=== PATIENT | male | born 1940 | race Caucasian/White ===

== ENCOUNTER 2018-05-25 11:48 | Inpatient (IN) ==
--- NOTE | 2018-05-25 16:49 | ED ---
HPI General Chief complaint: Skin/Abscess/Foreign Body Stated complaint: Face Pain Left Side Complaint Time Seen by Provider: 05/25/18 16:03 Source: patient Mode of arrival: ambulatory Limitations: other (partially blind) History of Present Illness HPI narrative: 77-year-old male who is legally blind with a history of right kidney cancer presents to the emergency department for evaluation of 3 weeks of left sided facial swelling. Patient states that he has been seen twice, and taking Keflex and clindamycin without improvement. He says that over the last couple days it has become worse. He admits to going to [facility] 2 days ago where they address his nausea and at that time he had abdominal pain. They did not address his facial swelling according to patient. Patient says he is concerned because he has had decreased vision in his left eye as a result of the swelling in his face. Patient says he follows ophthalmology closely. He has been diagnosed with glaucoma and states that his left eye pressure has been "okay". He says over the last couple days his vision has been worse however, he denies headache or abdominal pain. His assists with a history. States that he had a fever of 103 a couple of days ago but none since then. MD complaint: Reports other (mass) Onset (ago): week(s) Location: Reports face Related Data Home Medications Medication Instructions Recorded Confirmed Crestor 05/25/18 Jardiance 05/25/18 Saccharomyces boulardii [Florastor] 250 mg PO DAILY 05/25/18 05/25/18 Synthroid 05/25/18 carvedilol 25 mg PO BID 05/25/18 05/25/18 furosemide 05/25/18 insulin glargine [Lantus U-100 60 unit SUBCUT DAILY 05/25/18 05/25/18 Insulin] lisinopril 40 mg PO DAILY 05/25/18 05/25/18 metformin 500 mg PO BID 05/25/18 05/25/18 omeprazole 40 mg PO DAILY 05/25/18 05/25/18 warfarin 5 mg PO DIRECTED 05/25/18 05/25/18 warfarin 7.5 mg PO DIRECTED 05/25/18 05/25/18 Allergies Allergy/AdvReac Type Severity Reaction Status Date / Time Sulfa (Sulfonamide Allergy Mild unknown Verified 05/25/18 16:17 Antibiotics) Review of Systems ROS: all other systems reviewed are negative [facility] Medical History Medical History Afib (Acute) Blind (Acute) Blockage of kidney vein (Acute) Diabetes (Acute) Kidney carcinoma (Acute) Surgical History Surgical History History of cholecystectomy (Acute) S/P CABG x 2 (Acute) Social History Social History Substance History: No History of Abuse Smoking Status: Never smoker How Often Do You Have a Drink Containing Alcohol: Monthly or less Recent Travel in [facility] [[email or web address] within the Last 8 Weeks: No Recent Out of Country Travel within the Last 8 Weeks: No Immunization History Tetanus Immunization: <5 Years Exam Narrative Exam Narrative: GENERAL: Well-developed, well-nourished no apparent distress SKIN: Focused skin assessment warm/dry. HEAD: Atraumatic. Normocephalic. EYES: Right eye-sclerotic appearing. Left eye-people reacted to light, patient able to track my fingers somewhat and able to localize my finger. ENT: No nasal bleeding or discharge. Mucous membranes pink and moist. left cheek- near TMJ, bulging with mild TTP. Mild erythema over the bulging. Mobile measuring approx 2cm. NECK: Trachea midline. No JVD. No lymphadenopathy CARDIOVASCULAR: Regular rate and rhythm. No murmur appreciated. RESPIRATORY: No accessory muscle use. Clear to auscultation. Breath sounds equal bilaterally. GASTROINTESTINAL: Abdomen soft, non-tender, nondistended. Hepatic and splenic margins not palpable. MUSCULOSKELETAL: No obvious deformities. No clubbing. No cyanosis. No edema. NEUROLOGICAL: Awake and alert. No obvious cranial nerve deficits. Motor grossly within normal limits. Normal speech. PSYCHIATRIC: Appropriate mood and affect; insight and judgment normal. Course Initial Documented Vital Signs Temperature 98.6 F 05/25/18 11:52 Pulse Rate 79 05/25/18 11:52 Respiratory Rate 19 05/25/18 11:52 Blood Pressure 118/79 05/25/18 11:52 Pulse Oximetry 96 05/25/18 11:52 Last Documented Vital Signs Temperature 98.6 F 05/25/18 11:52 Pulse Rate 88 05/25/18 19:16 Respiratory Rate 15 05/25/18 19:16 Blood Pressure 164/84 H 05/25/18 19:16 Pulse Oximetry 98 05/25/18 19:16 Medical Decision Making MDM Narrative Medical decision making narrative: 69-year-old male presents to the emergency department evaluation of swelling to the left facial area that is been present for 3 weeks. Patient has taken Keflex and clindamycin without improvement. He states that he went to [facility] couple days ago for nausea and vomiting. He states that he mentioned the swelling of his left cheek but this did not seem to be addressed at that time. Patient reports subjective fever however, denies fever today. He denies history of parotid gland issues previously. Vital signs are stable. Labs are notable for white blood cell count 4.6, INR 3.4, BUN/creatinine 26/1.95 , blood sugar 283. Patient has not been to this facility previously so we do not have baseline labs. Tonopen left eye: 16, 17. EKG Afib rate 84 Unfortunately, because of patient's kidney function, was unable to perform CT with contrast. There is concern for a left facial abscess versus necrotic mass. Morphine administered for pain. Vancomycin and Flagyl administered for possible infectious process. Prednisone administered for swelling. I spoke to Dr. Valadez who agreed to the admission. Medical Screen Exam Complete: Yes Emergency Medical Condition: Yes Differential Diagnosis Differential Diagnosis: Parotiditis, facial abscess, cellulitis, dental abscess Lab Data Result diagrams: 05/25/18 16:37 05/25/18 16:37 Lab Results 05/25/18 05/25/18 05/25/18 Range/Units 16:37 16:37 16:37 WBC 4.6 (4.0-11.0) th/mm3 RBC 5.24 (4.50-5.90) mil/mm3 Hgb 13.2 (13.0-17.0) gm/dL Hct 41.1 (39.0-51.0) % MCV 78.5 L (80.0-100.0) fL MCH 25.2 L (27.0-34.0) pg MCHC 32.1 (32.0-36.0) % RDW 18.3 H (11.6-17.2) % Plt Count 149 L (150-450) th/mm3 MPV 8.5 (7.0-11.0) fL Neut % (Auto) 76.6 H (16.0-70.0) % Lymph % (Auto) 14.2 (9.0-44.0) % [place] % (Auto) 8.7 H (0.0-8.0) % Eos % (Auto) 0.2 (0.0-4.0) % Baso % (Auto) 0.3 (0.0-2.0) % Neut # (Auto) 3.5 (1.8-7.7) th/mm3 Lymph # (Auto) 0.6 L (1.0-4.8) th/mm3 [place] # (Auto) 0.4 (0.0-0.9) th/mm3 Eos # (Auto) 0.0 (0.0-0.4) th/mm3 Baso # (Auto) 0.0 (0.0-0.2) th/mm3 WBC Differential . Differential Comment Auto diff final PT 34.1 H (9.8-11.6) sec INR 3.4 Ratio APTT 43.3 H (24.3-30.1) sec Sodium 137 (136-145) meq/L Potassium 4.5 (3.5-5.1) meq/L Chloride 103 (98-107) meq/L Carbon Dioxide 28.4 (21.0-32.0) meq/L Anion Gap 6 (5-15) meq/L BUN 26 H (7-18) mg/dL Creatinine 1.95 H (0.60-1.30) mg/dL Estimated GFR 33 L (>89) mL/min POC Glucose (68-110) mg/dl Random Glucose 283 H (74-106) mg/dL Calcium 8.6 (8.5-10.1) mg/dL Phosphorus 3.4 (2.5-4.9) mg/dL Magnesium 2.3 (1.5-2.5) mg/dL Total Bilirubin 0.3 (0.2-1.0) mg/dL AST 34 (15-37) U/L ALT 29 (12-78) U/L Alkaline Phosphatase 95 (45-117) U/L Total Protein 7.2 (6.4-8.2) g/dL Albumin 3.6 (3.4-5.0) g/dL 05/25/18 Range/Units 17:04 WBC (4.0-11.0) th/mm3 RBC (4.50-5.90) mil/mm3 Hgb (13.0-17.0) gm/dL Hct (39.0-51.0) % MCV (80.0-100.0) fL MCH (27.0-34.0) pg MCHC (32.0-36.0) % RDW (11.6-17.2) % Plt Count (150-450) th/mm3 MPV (7.0-11.0) fL Neut % (Auto) (16.0-70.0) % Lymph % (Auto) (9.0-44.0) % [place] % (Auto) (0.0-8.0) % Eos % (Auto) (0.0-4.0) % Baso % (Auto) (0.0-2.0) % Neut # (Auto) (1.8-7.7) th/mm3 Lymph # (Auto) (1.0-4.8) th/mm3 [place] # (Auto) (0.0-0.9) th/mm3 Eos # (Auto) (0.0-0.4) th/mm3 Baso # (Auto) (0.0-0.2) th/mm3 WBC Differential Differential Comment PT (9.8-11.6) sec INR Ratio APTT (24.3-30.1) sec Sodium (136-145) meq/L Potassium (3.5-5.1) meq/L Chloride (98-107) meq/L Carbon Dioxide (21.0-32.0) meq/L Anion Gap (5-15) meq/L BUN (7-18) mg/dL Creatinine (0.60-1.30) mg/dL Estimated GFR (>89) mL/min POC Glucose 266 H (68-110) mg/dl Random Glucose (74-106) mg/dL Calcium (8.5-10.1) mg/dL Phosphorus (2.5-4.9) mg/dL Magnesium (1.5-2.5) mg/dL Total Bilirubin (0.2-1.0) mg/dL AST (15-37) U/L ALT (12-78) U/L Alkaline Phosphatase (45-117) U/L Total Protein (6.4-8.2) g/dL Albumin (3.4-5.0) g/dL Imaging Data Radiologist's impression: Face CT 05/25/18 16:17 CONCLUSION: 1. 2.5 cm left facial abscess or necrotic mass in the anterior left parotid with surrounding edema or inflammatory change. 2. Paranasal sinuses are clear. 3. Postoperative changes along the outer aspect of both optic globes. Head CT 05/25/18 16:17 CONCLUSION: 1. No acute intracranial abnormality. . Discharge Plan Discharge Disposition Patient Disposition: 30 Still Patient Discharge Condition Condition: Stable Discharge Details Diagnosis: Mass of parotid gland Physicians Team ED Provider: Nathan Guerrero ED Midlevel Provider: Felecia Gustafson Attending Provider: Angela Valadez Discharge Interventions Interventions: Vital Signs Last Done: 05/25/18 19:16 Status ED Status: Admitted Patient
[2018-05-25 17:02] LABS: Baso % (Auto) 0.3 % (0.0-2.0); Eos % (Auto) 0.2 % (0.0-4.0); Hematocrit 41.1 % (39.0-51.0); Hemoglobin 13.2 gm/dL (13.0-17.0); Lymph # (Auto) 0.6 th/mm3 (1.0-4.8); Lymph % (Auto) 14.2 % (9.0-44.0); Mean Corpuscular HGB Conc 32.1 % (32.0-36.0); Mean Corpuscular Hemoglobin 25.2 pg (27.0-34.0); Mean Corpuscular Volume 78.5 fL (80.0-100.0); Mean Platelet Volume 8.5 fL (7.0-11.0); Mono # (Auto) 0.4 th/mm3 (0.0-0.9); Mono % (Auto) 8.7 % (0.0-8.0); Neut # (Auto) 3.5 th/mm3 (1.8-7.7); Neut % (Auto) 76.6 % (16.0-70.0); Platelet Count 149 th/mm3 (150-450); Red Blood Count 5.24 mil/mm3 (4.50-5.90); Red Cell Distribution Width 18.3 % (11.6-17.2); White Blood Count 4.6 th/mm3 (4.0-11.0)
[2018-05-25 17:11] LABS: Activated Partial Thrombo Time 43.3 sec (24.3-30.1); INR 3.4 Ratio; Prothrombin Time 34.1 sec (9.8-11.6)
[2018-05-25 17:24] LABS: Albumin 3.6 g/dL (3.4-5.0); Anion Gap 6 meq/L (5-15); Aspartate Aminotransferase 34 U/L (15-37); Blood Urea Nitrogen 26 mg/dL (7-18); Calcium 8.6 mg/dL (8.5-10.1); Carbon Dioxide 28.4 meq/L (21.0-32.0); Chloride 103 meq/L (98-107); Glomerular Filtration Rate 33 mL/min (>89); Glucose,Random 283 mg/dL (74-106); Magnesium 2.3 mg/dL (1.5-2.5); Potassium 4.5 meq/L (3.5-5.1); Sodium 137 meq/L (136-145)
[2018-05-25 17:25] LABS: Alanine Aminotransferase 29 U/L (12-78); Phosphorus 3.4 mg/dL (2.5-4.9)
[2018-05-25 17:27] LABS: Alkaline Phosphatase 95 U/L (45-117); Total Protein 7.2 g/dL (6.4-8.2)
[2018-05-25] MEDS ORDERED: Morphine Sulfate Inj 2 MG/ML Vial IV.PUSH ONE (18:30)
--- NOTE | 2018-05-25 18:55 | CT ---
EXAM DATE: 05/25/2018 6:09 PM EDT AGE/SEX: 77 years / Male INDICATIONS: Blurred vision in left eye for three days. CLINICAL DATA: This is the patient's initial encounter. Patient reports that signs and symptoms have been present for 3 days and indicates a pain score of 0/10. MEDICAL/SURGICAL HISTORY: Diabetes. Renal carcinoma. CABG. RADIATION DOSE: 45.79 CTDI (mGy) COMPARISON: No prior exams available for comparison. TECHNIQUE: CT of the head without contrast. Using automated exposure control and adjustment of the mA and/or kV according to patient size, radiation dose was kept as low as reasonably achievable to ob tain optimal diagnostic quality images. DICOM format image data is available electronically for revi ew and comparison. FINDINGS: Cerebrum: The ventricles are normal for age. No evidence of midline shift, mass lesion, hemorrhage or acute infarction. No extraaxial fluid collections are seen. Posterior Fossa: The cerebellum and brainstem are intact. The 4th ventricle is midline. The cerebe llopontine angle is unremarkable. Extracranial: The visualized portion of the orbits is intact. Skull: The calvaria is intact. No evidence of skull fracture. CONCLUSION: 1. No acute intracranial abnormality. . Electronically signed by: Etienne Fontaine MD 05/25/2018 6:54 PM EDT
--- NOTE | 2018-05-25 18:59 | CT ---
EXAM DATE: 05/25/2018 6:09 PM EDT AGE/SEX: 77 years / Male INDICATIONS: Left facial abscess for three weeks. CLINICAL DATA: This is the patient's initial encounter. Patient reports that signs and symptoms have been present for 3 weeks and indicates a pain score of 4/10. MEDICAL/SURGICAL HISTORY: Diabetes. Renal carcinoma. CABG. RADIATION DOSE: 32.94 CTDI (mGy) COMPARISON: No prior exams available for comparison. TECHNIQUE: Contiguous images in the axial and coronal planes were obtained using helical multirow de tector technique. Using automated exposure control and adjustment of the mA and/or kV according to p atient size, radiation dose was kept as low as reasonably achievable to obtain optimal diagnostic rafael lity images. DICOM format image data is available electronically for review and comparison. FINDINGS: There is a complex loculated fluid collection with rim enhancement measuring up to 2.5 cm in diameter located between the left parotid gland and masseter muscle, probably within the anterior parotid. Th ere is some surrounding cellulitis. No acute bony abnormalities. Visualized paranasal sinuses are clear. CONCLUSION: 1. 2.5 cm left facial abscess or necrotic mass in the anterior left parotid with surrounding edema o r inflammatory change. 2. Paranasal sinuses are clear. 3. Postoperative changes along the outer aspect of both optic globes. Electronically signed by: Etienne Fontaine MD 05/25/2018 6:57 PM EDT
[2018-05-25] MEDS ORDERED: Vancomycin Inj 1,500 MG in Sodium Chlor 0.9% Inj 500 ML IV.SIG ONE (19:14)
[2018-05-25] MEDS ORDERED: predniSONE 20 MG Tablet PO ONE (19:23)
[2018-05-25] MEDS ORDERED: Vancomycin Consult Pharmacy OTHER PRN (21:26)
[2018-05-25] MEDS ORDERED: Dextrose 50% in Water 50 ML Vial IV.PUSH PRN (21:27)
[2018-05-25] MEDS ORDERED: Bisacodyl 10 MG Supp RECTAL PRN (21:28)
[2018-05-25] MEDS ORDERED: Acetaminophen 325 MG Tablet PO PRN (21:28)
--- NOTE | 2018-05-25 21:44 | P.HP ---
History of Present Illness Service: [facility] Primary Care Physician: David Alegria History of Present Illness: 77-year-old male with a past medical history significant for atrial fibrillation anticoagulated on Coumadin, right-sided renal cell carcinoma, renal artery stenosis on the left, coronary artery disease, hypertension, hyperlipidemia, diabetes mellitus and hypothyroidism presents to the emergency department for evaluation of a left sided facial mass. The patient reports that he initially noticed the mass approximately 1 month ago. He has completed courses of Keflex and clindamycin. He denies any associated dysphasia or difficulty breathing. He states he had a fever one time which was yesterday of 102.4. He was seen at [facility] yesterday for the evaluation of abdominal pain. A CT scan was normal and he was discharged to home. The patient denies any chest pain or shortness of breath. No abdominal pain. No nausea/vomiting/diarrhea. No lateralizing signs/symptoms. Inpatient Certification: I certify that the inpatient services were ordered in accordance with Medicare regulations governing the order. This includes certification that hospital inpatient services are reasonable and necessary and in the case of services not specified as inpatient-only under 42 CFR 419.22(n), that they are appropriately provided as inpatient services in accordance to with the 2-midnight benchmark under 43 CFR 412.3(e) Review of Systems All other systems reviewed negative except as stated in [facility] - History History Provided By: Patient - Medical History Medical History: Medical History (Last Updated 05/25/18 @ 21:37 by Angela Valadez MD) Afib Blind Blockage of kidney vein Diabetes Hyperlipidemia Hypertension Hypothyroidism Kidney carcinoma Renal artery stenosis - Surgical History Surgical History: Surgical History (Last Reviewed 05/25/18 @ 21:37 by Angela Valadez MD) History of cholecystectomy S/P CABG x 2 - Family History Family History: Family History (Last Updated 05/25/18 @ 21:37 by Angela Valadez MD) Other Coronary artery disease - Tobacco History Smoking Status: Never smoker - Alcohol History How Often Do You Have a Drink Containing Alcohol: Monthly or less - Substance Use History Substance History: No History of Abuse - Travel History Recent Travel in the [place] Within the Last 8 Weeks: No Recent Travel Out of the Country Within the Last 8 Weeks: No - Immunization History Tetanus Immunization: <5 Years Medications and Allergies Allergies Allergy/AdvReac Type Severity Reaction Status Date / Time Sulfa (Sulfonamide Allergy Mild unknown Verified 05/25/18 16:17 Antibiotics) Home Medications Medication Instructions Recorded Confirmed Type Crestor 05/25/18 History Jardiance 05/25/18 History Saccharomyces boulardii [Florastor] 250 mg PO DAILY 05/25/18 05/25/18 History Synthroid 05/25/18 History carvedilol 25 mg PO BID 05/25/18 05/25/18 History furosemide 05/25/18 History insulin glargine [Lantus U-100 60 unit SUBCUT DAILY 05/25/18 05/25/18 History Insulin] lisinopril 40 mg PO DAILY 05/25/18 05/25/18 History metformin 500 mg PO BID 05/25/18 05/25/18 History omeprazole 40 mg PO DAILY 05/25/18 05/25/18 History warfarin 5 mg PO DIRECTED 05/25/18 05/25/18 History warfarin 7.5 mg PO DIRECTED 05/25/18 05/25/18 History Exam Vital signs: Vital Signs 05/25/18 11:52 05/25/18 16:43 05/25/18 19:16 Temperature 98.6 F Pulse Rate 79 89 88 Respiratory Rate 19 18 15 Blood Pressure 118/79 149/80 H 164/84 H Pulse Oximetry 96 98 98 Intake & Output 05/25/18 05/25/18 05/26/18 06:59 18:59 06:59 Weight 99.79 kg Narrative: Gen.: No acute distress Head: Normocephalic. Atraumatic. Large mass mild palpation. It is not warm with no surrounding erythema. EENT: Pupils equal round and reactive to light. Nose without drainage. Airway intact. Throat without injection. Cardiovascular: Regular rate and rhythm. No murmurs, rubs or gallops. Respiratory: Lungs clear to auscultation bilaterally. No wheezes or rhonchi. Abdomen: Soft, nontender, nondistended. No peritoneal signs. Musculoskeletal: No gross deformities. No edema. Skin: No obvious rashes or erythema. Neuro: Sensory and motor grossly intact. Cranial nerves II through XII grossly intact. Results - Labs CBC & Chem 7: 05/25/18 16:37 05/25/18 16:37 Labs: Laboratory Results - last 24 hr 10/05/25/18 05/25/18 16:37 16:37 16:37 WBC 4.6 RBC 5.24 Hgb 13.2 Hct 41.1 MCV 78.5 L MCH 25.2 L MCHC 32.1 RDW 18.3 H Plt Count 149 L MPV 8.5 Neut % (Auto) 76.6 H Lymph % (Auto) 14.2 [place] % (Auto) 8.7 H Eos % (Auto) 0.2 Baso % (Auto) 0.3 Neut # (Auto) 3.5 Lymph # (Auto) 0.6 L [place] # (Auto) 0.4 Eos # (Auto) 0.0 Baso # (Auto) 0.0 WBC Differential . Differential Comment Auto diff final PT 34.1 H INR 3.4 APTT 43.3 H Sodium 137 Potassium 4.5 Chloride 103 Carbon Dioxide 28.4 Anion Gap 6 BUN 26 H Creatinine 1.95 H Estimated GFR 33 L POC Glucose Random Glucose 283 H Calcium 8.6 Phosphorus 3.4 Magnesium 2.3 Total Bilirubin 0.3 AST 34 ALT 29 Alkaline Phosphatase 95 Total Protein 7.2 Albumin 3.6 05/25/18 17:04 WBC RBC Hgb Hct MCV MCH MCHC RDW Plt Count MPV Neut % (Auto) Lymph % (Auto) [place] % (Auto) Eos % (Auto) Baso % (Auto) Neut # (Auto) Lymph # (Auto) [place] # (Auto) Eos # (Auto) Baso # (Auto) WBC Differential Differential Comment PT INR APTT Sodium Potassium Chloride Carbon Dioxide Anion Gap BUN Creatinine Estimated GFR POC Glucose 266 H Random Glucose Calcium Phosphorus Magnesium Total Bilirubin AST ALT Alkaline Phosphatase Total Protein Albumin - Imaging Impressions Face CT 05/25/18 16:17 CONCLUSION: 1. 2.5 cm left facial abscess or necrotic mass in the anterior left parotid with surrounding edema or inflammatory change. 2. Paranasal sinuses are clear. 3. Postoperative changes along the outer aspect of both optic globes. Head CT 05/25/18 16:17 CONCLUSION: 1. No acute intracranial abnormality. . Caprini VTE Risk Assessment Caprini VTE Risk Assessment: Moderate/High Risk (score >= 2) Caprini Risk Assessment Model: Point Value = 1 Point Value = 2 Point Value = 3 Point Value = 5 Age 41-60 Minor surgery BMI > 25 kg/m2 Swollen legs Varicose veins or History of unexplained or recurrent spontaneous Oral contraceptives or hormone replacement Sepsis (< 1 month) Serious lung disease, including pneumonia (< 1 month) Abnormal pulmonary function Acute myocardial infarction Congestive heart failure (< 1 month) History of inflammatory bowel disease Medical patient at bed rest Age 61-74 Arthroscopic surgery Major open surgery (> 45 min) Laparoscopic surgery (> 45 min) Malignancy Confined to bed (> 72 hours) Immobilizing plaster cast Central venous access Age >= 75 History of VTE Family history of VTE Factor V Leiden Prothrombin [id number] Lupus anticoagulant Anticardiolipin antibodies Elevated serum homocysteine Heparin-induced thrombocytopenia Other congenital or acquired thrombophilia Stroke (< 1 month) Elective arthroplasty Hip, pelvis, or leg fracture Acute spinal cord injury (< 1 month) Prophylaxis Regimen: Total Risk Factor Score Risk Level Prophylaxis Regimen 0-1 Low Early ambulation 2 Moderate Order ONE of the following: *Sequential Compression Device (SCD) *Heparin 5000 units SQ BID 3-4 Higher Order ONE of the following medications: *Heparin 5000 units SQ TID *Enoxaparin/Lovenox 40 mg SQ daily (WT < 150 kg, CrCl > 30 mL/min) *Enoxaparin/Lovenox 30 mg SQ daily (WT < 150 kg, CrCl > 10-29 mL/min) *Enoxaparin/Lovenox 30 mg SQ BID (WT < 150 kg, CrCl > 30 mL/min) AND/OR *Sequential Compression Device (SCD) 5 or more Highest Order ONE of the following medications: *Heparin 5000 units SQ TID (Preferred with Epidurals) *Enoxaparin/Lovenox 40 mg SQ daily (WT < 150 kg, CrCl > 30 mL/min) *Enoxaparin/Lovenox 30 mg SQ daily (WT < 150 kg, CrCl > 10-29 mL/min) *Enoxaparin/Lovenox 30 mg SQ BID (WT < 150 kg, CrCl > 30 mL/min) AND *Sequential Compression Device (SCD) Assessment and Plan - Plan Assessment/plan: 1. Parotid mass Facial CT significant for 2.5 cm left facial abscess versus necrotic mass in the anterior left parotid with surrounding edema or inflammatory change Flagyl and vancomycin for possible infectious coverage OMFS consulted, appreciate assistance 2. Renal cell carcinoma Patient follows with Dr. Stone Continue outpatient follow-up Creatinine elevated at 1.95, baseline unknown Monitor renal function 3. Diabetes mellitus Sliding scale insulin as patient n.p.o. Monitor blood glucose 4. Hypertension/hyperlipidemia/coronary artery disease/hypothyroidism Continue home medications 5. Atrial fibrillation Holding Coumadin for possible intervention FEN N.p.o. Electrolytes: Monitor and replete as needed NS at 125 cc/hour Holding pharmacologic anticoagulation for possible intervention
[2018-05-25] MEDS ORDERED: Sodium Chloride 0.9% 2 ML Flush PRN IV.FLUSH (21:49)
[2018-05-26] MEDS: Sod Chloride 0.9% Inj 1,000 ML IV.CONT SCH ×4 (00:03→21:59)
[2018-05-26] MEDS ORDERED: Morphine Inj 4 MG/ML Vial IV.PUSH PRN (02:07)
[2018-05-26] MEDS: MethylPREDNISolone Sod Succinate Inj 40 MG/ML Vial IV.PUSH SCH ×3 (03:41→15:39)
[2018-05-26] MEDS: Insulin NovoLOG Aspart Correctional Sugar Inj SQ SCH ×5 (04:54→21:12)
[2018-05-26 06:03] LABS: Baso % (Auto) 0.1 % (0.0-2.0); Hemoglobin 12.5 gm/dL (13.0-17.0); Lymph # (Auto) 0.2 th/mm3 (1.0-4.8); Lymph % (Auto) 4.2 % (9.0-44.0); Mean Corpuscular Hemoglobin 25.2 pg (27.0-34.0); Mean Corpuscular Volume 78.6 fL (80.0-100.0); Mean Platelet Volume 8.4 fL (7.0-11.0); Mono # (Auto) 0.1 th/mm3 (0.0-0.9); Mono % (Auto) 2.1 % (0.0-8.0); Neut # (Auto) 4.9 th/mm3 (1.8-7.7); Neut % (Auto) 93.6 % (16.0-70.0); Platelet Count 137 th/mm3 (150-450); Red Blood Count 4.96 mil/mm3 (4.50-5.90); Red Cell Distribution Width 18.5 % (11.6-17.2); White Blood Count 5.2 th/mm3 (4.0-11.0)
[2018-05-26 06:25] LABS: Calcium 8.7 mg/dL (8.5-10.1); Potassium 5.1 meq/L (3.5-5.1)
[2018-05-26] MEDS: Senna/Docusate Sodium 8.6/50 MG Tablet PO SCH ×2 (09:31→21:17)
[2018-05-26] MEDS: Lisinopril 20 MG Tablet PO SCH (09:32)
[2018-05-26] MEDS: Carvedilol 12.5 MG Tablet PO SCH ×2 (09:33→21:12)
[2018-05-26] MEDS: Sodium Chloride 0.9% 2 ML Flush BID IV.FLUSH SCH ×2 (09:33→21:55)
--- NOTE | 2018-05-26 17:27 | P.PNIM ---
Subjective Interval history: Patient complains of some pain on the left side of his face. Otherwise he does not have any other complaints. Physical Exam Vital signs: Vital Signs 05/25/18 19:16 05/26/18 02:54 05/26/18 03:55 Temperature 98.7 F Pulse Rate 88 98 H Respiratory Rate 15 21 18 Blood Pressure 164/84 H 155/80 H Pulse Oximetry 98 96 05/26/18 08:00 05/26/18 12:00 05/26/18 16:00 Temperature 97.9 F 97.5 F L 98.7 F Pulse Rate 69 68 83 Respiratory Rate 12 12 16 Blood Pressure 136/79 144/79 H 144/72 H Pulse Oximetry 97 96 96 Intake & Output 05/25/18 05/26/18 05/26/18 18:59 06:59 18:59 Intake Total 1615 / 1615 1100 / 1100 Balance 1615 / 1615 1100 / 1100 Weight 99.79 kg 99.79 kg Intake: IV 1615 / 1615 1100 / 1100 NS Inj 1,000 ML @ 125 mls/hr IV 1000 / 1000 1000 / 1000 .CONT .Q8H [facility] Rx#:[id number] Vancomycin Inj 1,500 MG In NS 515 / 515 Inj 500 ML @ 250 mls/hr IV.SIG ONCE ONE Rx#:[id number] Flagyl 500 MG Inj 100 ML @ 100 100 / 100 100 / 100 mls/hr IV.SIG Q8H [facility] Rx#: [id number] Other: # Voids 1 Date of Last Bowel Movement 05/25/18 Weight On Admission 99.79 kg Narrative: General patient complains of mild pain in the left side of his face. HEENT left facial tender mass slightly anterior to the left ear. No drainage. Patient is legally blind. Cardiovascular S1-S2 audible Respiratory clear to auscultation bilaterally Abdomen soft, nontender, nondistended, normal bowel sounds Extremities no edema 2+ distal pulses in bilateral upper and lower extremities Neuro no neurological deficits Results - Labs CBC & Chem 7: 05/26/18 05:36 05/26/18 05:36 Laboratory Results - last 24 hr 05/25/18 05/25/18 05/26/18 16:37 23:05 03:52 WBC RBC Hgb Hct MCV MCH MCHC RDW Plt Count MPV Neut % (Auto) Lymph % (Auto) [place] % (Auto) Eos % (Auto) Baso % (Auto) Neut # (Auto) Lymph # (Auto) [place] # (Auto) Eos # (Auto) Baso # (Auto) WBC Differential Differential Comment Sodium 137 Potassium 4.5 Chloride 103 Carbon Dioxide 28.4 Anion Gap 6 BUN 26 H Creatinine 1.95 H Estimated GFR 33 L POC Glucose 183 H 300 H Random Glucose 283 H Calcium 8.6 Phosphorus 3.4 Magnesium 2.3 Total Bilirubin 0.3 AST 34 ALT 29 Alkaline Phosphatase 95 Total Protein 7.2 Albumin 3.6 05/26/18 05/26/18 05/26/18 05:36 05:36 09:23 WBC 5.2 RBC 4.96 Hgb 12.5 L Hct 39.0 MCV 78.6 L MCH 25.2 L MCHC 32.0 RDW 18.5 H Plt Count 137 L MPV 8.4 Neut % (Auto) 93.6 H Lymph % (Auto) 4.2 L [place] % (Auto) 2.1 Eos % (Auto) 0.0 Baso % (Auto) 0.1 Neut # (Auto) 4.9 Lymph # (Auto) 0.2 L [place] # (Auto) 0.1 Eos # (Auto) 0.0 Baso # (Auto) 0.0 WBC Differential . Differential Comment Auto diff final Sodium 137 Potassium 5.1 Chloride 105 Carbon Dioxide 26.0 Anion Gap 6 BUN 28 H Creatinine 1.73 H Estimated GFR 38 L POC Glucose 234 H Random Glucose 304 H Calcium 8.7 Phosphorus Magnesium Total Bilirubin AST ALT Alkaline Phosphatase Total Protein Albumin 05/26/18 12:05 WBC RBC Hgb Hct MCV MCH MCHC RDW Plt Count MPV Neut % (Auto) Lymph % (Auto) [place] % (Auto) Eos % (Auto) Baso % (Auto) Neut # (Auto) Lymph # (Auto) [place] # (Auto) Eos # (Auto) Baso # (Auto) WBC Differential Differential Comment Sodium Potassium Chloride Carbon Dioxide Anion Gap BUN Creatinine Estimated GFR POC Glucose 257 H Random Glucose Calcium Phosphorus Magnesium Total Bilirubin AST ALT Alkaline Phosphatase Total Protein Albumin - Imaging Impressions Face CT 05/25/18 16:17 CONCLUSION: 1. 2.5 cm left facial abscess or necrotic mass in the anterior left parotid with surrounding edema or inflammatory change. 2. Paranasal sinuses are clear. 3. Postoperative changes along the outer aspect of both optic globes. Head CT 05/25/18 16:17 CONCLUSION: 1. No acute intracranial abnormality. . Assessment and Plan - Plan This patient is a 77-year-old male with a diagnosis of atrial fibrillation on anticoagulation with Coumadin, right-sided renal cell carcinoma, renal coronary artery disease, hypertension, dyslipidemia, diabetes, hypothyroidism. The patient presented to emergency department with complaints of left-sided facial pain and tenderness. The patient initially noticed the growing mass approximately 1 month ago. He was on Keflex and clindamycin outpatient however he did not have any significant improvement of mass. 1. Left-sided parotid mass. CT scan of the face shows a 2.5 cm left facial abscess versus possible necrotic mass with surrounding edema and inflammatory changes. He is currently on IV antibiotics. Continue IV fluids. ENT has been consulted to evaluate the patient. We will keep the patient n.p.o. today for possible drainage of the mass. His INR is elevated at 3.4. Coumadin has been held. If the patient does undergo a surgical procedure today his INR will need to be reversed. I will await ENTs recommendation. He will be given pain medications as needed. 2. Atrial fibrillation Continue Coreg, anticoagulation has been held. INR was 3.4 yesterday. If ENT does not recommend surgical intervention his Coumadin will be continued. Heart rate is currently under control. 3. Hypertension/dyslipidemia We will continue current antihypertensives. His antihypertensive medication will be adjusted as needed. Continue statin 4. Diabetes Continue low-dose insulin sliding scale. The patient does not undergo surgical intervention today he will be started on a diabetic diet. 5. Renal cell carcinoma Patient is following up outpatient for management of his RCC. No acute intervention needed. DVT prophylaxis: Patient is currently on Coumadin, INR 3.4 as of yesterday.
[2018-05-26] MEDS: Ampicillin/Sulbactam Inj 3 GM in Sodium Chloride 0.9% Inj 100 ML IV.SIG SCH (20:03)
--- NOTE | 2018-05-26 20:56 | ECG ---
Date Performed: 05/25/2018 Time Performed: 16:19:57 PTAGE: 77 years EKG: ATRIAL FIBRILLATION MARKED RIGHT AXIS DEVIATION RIGHT BUNDLE BRANCH BLOCK AND POSSIBLE RIGH T VENTRICULAR HYPERTROPHY INFERIOR MYOCARDIAL INFARCTION ABNORMAL ECG NO PREVIOUS TRACING DOCTOR: Luis Curry Interpretating Date/Time 05/26/2018 20:54:54
[2018-05-26] MEDS ORDERED: MethylPREDNISolone Sod Succinate Inj 40 MG/ML Vial IV.PUSH SCH (21:00)
[2018-05-26] MEDS ORDERED: Dexamethasone Inj 20 MG/5 ML Vial IV.PUSH SCH (22:00)
[2018-05-27] MEDS: Ampicillin/Sulbactam Inj 3 GM in Sodium Chloride 0.9% Inj 100 ML IV.SIG SCH ×2 (01:02→05:36)
[2018-05-27] MEDS: Insulin NovoLOG Aspart Correctional Sugar Inj SQ SCH ×2 (03:05→09:42)
[2018-05-27 04:09] VITALS: TEMP 97.7
[2018-05-27] MEDS: Sod Chloride 0.9% Inj 1,000 ML IV.CONT SCH (04:52)
[2018-05-27] MEDS: Lisinopril 20 MG Tablet PO SCH (08:34)
[2018-05-27] MEDS: Carvedilol 12.5 MG Tablet PO SCH (08:34)
[2018-05-27] MEDS: Senna/Docusate Sodium 8.6/50 MG Tablet PO SCH (08:35)
[2018-05-27] MEDS: Sodium Chloride 0.9% 2 ML Flush BID IV.FLUSH SCH (08:36)
[2018-05-27 08:47] VITALS: BP 161/79; PULSE 88; RESP 16; O2SAT 96
--- NOTE | 2018-05-27 08:52 | P.DS ---
Date of admission: 05/25/18 19:23 Primary care physician: David Alegria Brief History from admission: This patient is a 77-year-old male with a diagnosis of atrial fibrillation on anticoagulation with Coumadin, right-sided renal cell carcinoma, renal coronary artery disease, hypertension, dyslipidemia, diabetes, hypothyroidism, coronary artery disease. The patient presented to emergency department with complaints of left-sided facial pain and tenderness. The patient initially noticed the growing mass approximately 1 month ago. He was on Keflex and clindamycin outpatient however he did not have any significant improvement of mass. DS: Summary Hospital Course: This patient is a 77-year-old male with a diagnosis of atrial fibrillation on anticoagulation with Coumadin, right-sided renal cell carcinoma, renal artery stenosis, hypertension, dyslipidemia, diabetes, hypothyroidism, coronary artery disease. The patient presented to the emergency department with complaints of left-sided facial pain and tenderness. He said the mass in the left side of his face was growing significantly over the past 1 month. He was given Keflex and clindamycin outpatient however it did not have any resolution of his symptoms he denied having any fevers or chills. 1. 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 The patient initially was admitted and started on IV antibiotics as well as IV steroids. ENT was consulted to evaluate the patient and recommended that we stop IV steroids and they have scheduled the patient for an outpatient biopsy on Thursday May 31, 2018. The patient has remained afebrile in house. He was given Keflex and clindamycin outpatient without any resolution of his symptoms. We do not believe that the mass is an infectious process his antibiotics will be discontinued. Patient was advised that if he begins to spike fevers he should seek medical attention. Once the patient's biopsy results come back we can discuss a plan on what to do next. 2. Atrial fibrillation Continue current dose of Coumadin. The patient follow-up with her primary care physician in the next 1 week and an INR should be checked during that clinic visit. His Coumadin can be adjusted as needed. No need to hold Coumadin for the patient's needle biopsy of the mass for this coming up Tuesday as per ENT. 3. Hypertension/dyslipidemia/coronary artery disease Continue home medications. 4. Diabetes Continue home medications 5. Renal cell carcinoma As per the patient he is following up outpatient for management of his renal cell carcinoma. He should follow-up with his primary care physician in 1 week and continue to follow-up outpatient for further management of RCC. - Time Spent with Patient Total time spent providing and/or coordinating discharge services: Greater than 30 minutes - Quality: VTE Deep Vein Thrombosis/Pulmonary Embolism Present on Admission: No Exam Vital signs: Vital Signs 05/26/18 12:00 05/26/18 16:00 05/26/18 19:48 Temperature 97.5 F L 98.7 F 97.7 F Pulse Rate 68 83 86 Respiratory Rate 12 16 18 Blood Pressure 144/79 H 144/72 H 128/70 Pulse Oximetry 96 96 96 05/26/18 23:43 05/27/18 04:00 Temperature 97.9 F 97.7 F Pulse Rate 89 85 Respiratory Rate 20 18 Blood Pressure 133/68 136/65 Pulse Oximetry 96 95 Intake & Output 05/26/18 05/27/18 05/27/18 18:59 06:59 18:59 Intake Total 1200 / 1200 2850 / 2850 Output Total 400 / 400 375 / 375 Balance 800 / 800 2475 / 2475 Intake: IV 1200 / 1200 2500 / 2500 NS Inj 1,000 ML @ 125 mls/hr IV 1000 / 1000 2000 / 2000 .CONT .Q8H [facility] Rx#:[id number] Unasyn Inj 3 GM In NS Inj 100 300 / 300 ML @ 200 mls/hr IV.SIG Q6H [facility] Rx#:[id number] Flagyl 500 MG Inj 100 ML @ 100 200 / 200 200 / 200 mls/hr IV.SIG Q8H [facility] Rx#: [id number] Oral 350 / 350 Output: Urine 400 / 400 375 / 375 Other: # Voids 3 Date of Last Bowel Movement 05/26/18 Narrative: General patient complains of mild pain in the left side of his face. HEENT left facial tender mass slightly anterior to the left ear. No drainage. Patient is legally blind. Cardiovascular S1-S2 audible Respiratory clear to auscultation bilaterally Abdomen soft, nontender, nondistended, normal bowel sounds Extremities no edema 2+ distal pulses in bilateral upper and lower extremities Neuro no neurological deficits Results Procedures completed during hospitalization: none Labs on day of discharge: Labs from last 24 hours 05/27/18 05/26/1818 03:01 20:25 18:40 POC Glucose 309 H 383 H 305 H 05/26/18 05/26/18 12:05 09:23 POC Glucose 257 H 234 H - Impressions ITS Impressions Face CT 05/25/18 16:17 CONCLUSION: 1. 2.5 cm left facial abscess or necrotic mass in the anterior left parotid with surrounding edema or inflammatory change. 2. Paranasal sinuses are clear. 3. Postoperative changes along the outer aspect of both optic globes. Head CT 05/25/18 16:17 CONCLUSION: 1. No acute intracranial abnormality. . Discharge Plan - Discharge Disposition Patient Disposition: 01 Discharge Home - Discharge Condition Condition: Good - Discharge Order Discharge Orders: Discharge Order (Routine); Ordered 05/27/18 Ordered By: Alfred Park - Physicians Team Attending Provider: Alfred Park Other Providers: Martin Chavira MD
--- NOTE | 2018-05-28 05:32 | MD ---
cc: Martin Chavira MD DATE OF DISCHARGE: 05/27/2018 SUBJECTIVE: He is in room G80. He is a 78-year-old gentleman who comes in with about 4-6 week history of left parotid swelling. He has been on antibiotics with no remission up to this point. CT scan reveals probable neoplasm versus necrotic abscess 2.5 cm with surrounding edema. PHYSICAL EXAM: Physical exam today reveals a gentleman who is reportedly blind and behaviors consistent with that. Ears are WNL. Nasal cavity WNL. Oral cavity reveals no purulence, xerostomia, no masses. Left parotid has approximately a 4 cm mass in the mid parotid, anterior masseter. No facial paralysis is noted, although drooping of the left eye is present and is by report of girlfriend, longstanding. Neck is soft, supple. No masses noted. 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 On exam, no fluctuance, no need for immediate intervention, likely represents neoplasm. As such, recommend outpatient fine needle aspiration followed by plan of therapy based on that. He will be discharged by the hospitalist and follow up in my office on p.o. antibiotic therapy. MD INÉS Diana/kyler/magen , 08:31 AM , 08:38 AM
== END 2018-05-27 10:52 | disposition home or self-care (01) ==
LOC: NEPC 11:48 → INTOOBSV 19:23 → OBSVTOIN 19:23 → NEDA 19:23 → NEPGCP 22:27
PROVIDERS: ADMIT Hospitalist; ATTEND Hospitalist

== ENCOUNTER 2018-06-10 10:28 | Inpatient (IN) ==
--- NOTE | 2018-06-10 11:03 | ED ---
HPI General Chief complaint: Recheck/Abnormal Lab/Rx Stated complaint: Swollen left side face Time Seen by Provider: 06/10/18 10:59 Source: patient Mode of arrival: ambulatory Limitations: no limitations History of Present Illness HPI narrative: Patient states that he has had this left-sided parotid lump for almost a month, it has been biopsied by Dr. Adams, he was told that it was not malignant. And has been on a total of 6 different oral antibiotics without resolution. Per patient they contacted Dr. Stoll ear nose and throat who recommended the patient to come to the emergency department. Primary care is [facility] care at [facility] to be each Allergic to sulfa Past medical history hypothyroidism, hyperlipidemia hypertension renal artery stenosis blindness, atrial fib, diabetes, kidney cancer in remission, cholecystectomy, CABG x2. Onset (ago): week(s) Location: face Radiation: non-radiation Severity: moderate Severity scale (1-10): 4 Quality: sharp Pain Consistency: constant Relieving factors: none Exacerbating factors: none Associated symptoms: Reports denies other symptoms Treatments prior to arrival: Reports other Related Data Home Medications Medication Instructions Recorded Confirmed Saccharomyces boulardii [Florastor] 250 mg PO DAILY 05/25/18 06/10/18 carvedilol 25 mg PO BID 05/25/18 06/10/18 lisinopril 40 mg PO DAILY 05/25/18 06/10/18 metformin 500 mg PO BID 05/25/18 06/10/18 warfarin 5 mg PO DIRECTED 05/25/18 06/10/18 carteolol 1 drp LEFT EYE BID 05/26/18 06/10/18 empagliflozin [Jardiance] 12.5 mg PO QAM 05/26/18 06/10/18 furosemide 20 mg PO DAILY 05/26/18 06/10/18 insulin glargine [Lantus U-100 60 unit SUBCUT HS 05/26/18 06/10/18 Insulin] levothyroxine 150 mcg PO 0600 05/26/18 06/10/18 nitroglycerin 0.4 mg SUBLINGUAL Q5-15M PRN 05/26/18 06/10/18 prednisolone acetate 1 drp RIGHT EYE TID 05/26/18 06/10/18 rosuvastatin 40 mg PO DAILY 05/26/18 06/10/18 Previous Rx's Medication Instructions Recorded amoxicillin-pot clavulanate 1 tab PO BID #14 tab 06/06/18 [Augmentin] oxycodone-acetaminophen [Percocet] 1 tab PO Q6H PRN #12 tab 06/06/18 Allergies Allergy/AdvReac Type Severity Reaction Status Date / Time Sulfa (Sulfonamide Allergy Mild unknown Verified 06/10/18 10:52 Antibiotics) [facility] Social History Social History Substance History: No History of Abuse Second Hand Smoke Exposure: No Smoking Status: Former smoker Tobacco Type: Cigarettes How Often Do You Have a Drink Containing Alcohol: Monthly or less Recent Travel in [facility] within the Last 8 Weeks: No Recent Out of Country Travel within the Last 8 Weeks: No Immunization History Tetanus Immunization: <5 Years Exam Narrative Exam Narrative: GENERAL: elderly male in no respiratory distress SKIN: Focused skin assessment warm/dry. HEAD: Atraumatic. Normocephalic. EYES: Pupils equal and round. No scleral icterus. No injection or drainage. ENT: No nasal bleeding or discharge. Mucous membranes pink and moist.LEFT PAROTID REGION HAS MASS OVAL SHAPED ABOUT 5CM NECK: Trachea midline. No JVD. No stridor, CARDIOVASCULAR: Regular rate and rhythm. No murmur appreciated. RESPIRATORY: No accessory muscle use. Clear to auscultation. Breath sounds equal bilaterally. No wheezing GASTROINTESTINAL: Abdomen soft, non-tender, nondistended. Hepatic and splenic margins not palpable. MUSCULOSKELETAL: No obvious deformities. No clubbing. No cyanosis. No edema. NEUROLOGICAL: Awake and alert. No obvious cranial nerve deficits. Motor grossly within normal limits. Normal speech. PSYCHIATRIC: Appropriate mood and affect; insight and judgment normal. Course Initial Documented Vital Signs Temperature 97.8 F 06/10/18 10:38 Pulse Rate 88 06/10/18 10:38 Respiratory Rate 16 06/10/18 10:38 Blood Pressure 184/83 H 06/10/18 10:38 Pulse Oximetry 96 06/10/18 10:38 Last Documented Vital Signs Temperature 97.8 F 06/10/18 10:38 Pulse Rate 73 06/10/18 14:41 Respiratory Rate 16 06/10/18 14:41 Blood Pressure 111/67 06/10/18 14:41 Pulse Oximetry 98 06/10/18 14:41 Medical Decision Making MDM Narrative Medical Screen Exam Complete: Yes Emergency Medical Condition: Yes Lab Data Result diagrams: 06/10/18 11:15 06/10/18 11:15 Lab Results 06/10/18 06/10/18 06/10/18 Range/Units 11:15 11:15 11:15 WBC 4.8 (4.0-11.0) th/mm3 RBC 5.02 (4.50-5.90) mil/mm3 Hgb 13.0 (13.0-17.0) gm/dL Hct 40.2 (39.0-51.0) % MCV 80.1 (80.0-100.0) fL MCH 25.9 L (27.0-34.0) pg MCHC 32.3 (32.0-36.0) % RDW 19.2 H (11.6-17.2) % Plt Count 130 L (150-450) th/mm3 MPV 8.1 (7.0-11.0) fL Neut % (Auto) 76.2 H (16.0-70.0) % Lymph % (Auto) 16.0 (9.0-44.0) % [place] % (Auto) 7.0 (0.0-8.0) % Eos % (Auto) 0.5 (0.0-4.0) % Baso % (Auto) 0.3 (0.0-2.0) % Neut # (Auto) 3.6 (1.8-7.7) th/mm3 Lymph # (Auto) 0.8 L (1.0-4.8) th/mm3 [place] # (Auto) 0.3 (0.0-0.9) th/mm3 Eos # (Auto) 0.0 (0.0-0.4) th/mm3 Baso # (Auto) 0.0 (0.0-0.2) th/mm3 WBC Differential . Differential Comment Auto diff final Sodium 138 (136-145) meq/L Potassium 4.8 (3.5-5.1) meq/L Chloride 103 (98-107) meq/L Carbon Dioxide 29.4 (21.0-32.0) meq/L Anion Gap 6 (5-15) meq/L BUN 18 (7-18) mg/dL Creatinine 1.52 H (0.60-1.30) mg/dL Estimated GFR 44 L (>89) mL/min POC Glucose (68-110) mg/dl Random Glucose 272 H (74-106) mg/dL Lactic Acid 1.9 (0.4-2.0) mmol/L Calcium 8.9 (8.5-10.1) mg/dL Total Bilirubin 0.4 (0.2-1.0) mg/dL AST 26 (15-37) U/L ALT 29 (12-78) U/L Alkaline Phosphatase 92 (45-117) U/L Total Protein 7.0 (6.4-8.2) g/dL Albumin 3.5 (3.4-5.0) g/dL 06/10/18 Range/Units 11:46 WBC (4.0-11.0) th/mm3 RBC (4.50-5.90) mil/mm3 Hgb (13.0-17.0) gm/dL Hct (39.0-51.0) % MCV (80.0-100.0) fL MCH (27.0-34.0) pg MCHC (32.0-36.0) % RDW (11.6-17.2) % Plt Count (150-450) th/mm3 MPV (7.0-11.0) fL Neut % (Auto) (16.0-70.0) % Lymph % (Auto) (9.0-44.0) % [place] % (Auto) (0.0-8.0) % Eos % (Auto) (0.0-4.0) % Baso % (Auto) (0.0-2.0) % Neut # (Auto) (1.8-7.7) th/mm3 Lymph # (Auto) (1.0-4.8) th/mm3 [place] # (Auto) (0.0-0.9) th/mm3 Eos # (Auto) (0.0-0.4) th/mm3 Baso # (Auto) (0.0-0.2) th/mm3 WBC Differential Differential Comment Sodium (136-145) meq/L Potassium (3.5-5.1) meq/L Chloride (98-107) meq/L Carbon Dioxide (21.0-32.0) meq/L Anion Gap (5-15) meq/L BUN (7-18) mg/dL Creatinine (0.60-1.30) mg/dL Estimated GFR (>89) mL/min POC Glucose 292 H (68-110) mg/dl Random Glucose (74-106) mg/dL Lactic Acid (0.4-2.0) mmol/L Calcium (8.5-10.1) mg/dL Total Bilirubin (0.2-1.0) mg/dL AST (15-37) U/L ALT (12-78) U/L Alkaline Phosphatase (45-117) U/L Total Protein (6.4-8.2) g/dL Albumin (3.4-5.0) g/dL Imaging Data Radiologist's impression: Chest X-Ray 06/10/18 11:03 CONCLUSION: Cardiac silhouette enlargement. Lungs clear. Soft Tissue Neck CT 06/10/18 11:03 CONCLUSION: 1. 2 cm thick-walled cystic mass or abscess in the left parotid gland with adjacent inflammatory change. 2. Severe degenerative findings of the cervical spine. Discharge Plan Discharge Disposition Patient Disposition: 30 Still Patient Discharge Condition Condition: Stable Discharge Details Diagnosis: Mass of parotid gland Physicians Team ED Provider: Dominic Taylor Primary Care Provider: UNKNOWN, Attending Provider: Martin Malone Other Providers: Johnie Stoll Discharge Interventions Interventions: Vital Signs Last Done: 06/10/18 14:41 Status ED Status: Admitted Patient
[2018-06-10] MEDS ORDERED: Piperacil/Tazo 3.375 GM Premix 50 ML IV.SIG ONE (11:04)
--- NOTE | 2018-06-10 11:17 | XR ---
EXAM DATE: 06/10/2018 11:14 AM EDT AGE/SEX: 78 years / Male INDICATIONS: Fever on and off for the past month. CLINICAL DATA: This is the patient's initial encounter. Patient reports that signs and symptoms have been present for 1 month and indicates a pain score of 0/10. MEDICAL/SURGICAL HISTORY: . Diabetes. Renal carcinoma. . CABG. COMPARISON: No prior exams available for comparison. FINDINGS: 3 view the chest. Median sternotomy wires. Moderate cardiac silhouette enlargement. Lungs clear. No e vidence of pleural effusion or pneumothorax. CONCLUSION: Cardiac silhouette enlargement. Lungs clear. Electronically signed by: Jl Clinton MD 06/10/2018 11:15 AM EDT
[2018-06-10 11:47] LABS: Baso % (Auto) 0.3 % (0.0-2.0); Eos % (Auto) 0.5 % (0.0-4.0); Hematocrit 40.2 % (39.0-51.0); Lymph # (Auto) 0.8 th/mm3 (1.0-4.8); Mean Corpuscular HGB Conc 32.3 % (32.0-36.0); Mean Corpuscular Hemoglobin 25.9 pg (27.0-34.0); Mean Corpuscular Volume 80.1 fL (80.0-100.0); Mean Platelet Volume 8.1 fL (7.0-11.0); Mono # (Auto) 0.3 th/mm3 (0.0-0.9); Neut # (Auto) 3.6 th/mm3 (1.8-7.7); Neut % (Auto) 76.2 % (16.0-70.0); Platelet Count 130 th/mm3 (150-450); Red Blood Count 5.02 mil/mm3 (4.50-5.90); Red Cell Distribution Width 19.2 % (11.6-17.2); White Blood Count 4.8 th/mm3 (4.0-11.0)
[2018-06-10 12:21] LABS: Alanine Aminotransferase 29 U/L (12-78); Albumin 3.5 g/dL (3.4-5.0); Anion Gap 6 meq/L (5-15); Aspartate Aminotransferase 26 U/L (15-37); Blood Urea Nitrogen 18 mg/dL (7-18); Calcium 8.9 mg/dL (8.5-10.1); Carbon Dioxide 29.4 meq/L (21.0-32.0); Chloride 103 meq/L (98-107); Glomerular Filtration Rate 44 mL/min (>89); Glucose,Random 272 mg/dL (74-106); Potassium 4.8 meq/L (3.5-5.1); Sodium 138 meq/L (136-145)
[2018-06-10 12:23] LABS: Alkaline Phosphatase 92 U/L (45-117)
--- NOTE | 2018-06-10 14:09 | CT ---
EXAM DATE: 06/10/2018 1:53 PM EDT AGE/SEX: 78 years / Male INDICATIONS: Left sided facial swelling and pain for one month. CLINICAL DATA: This is the patient's initial encounter. Patient reports that signs and symptoms have been present for 1 month and indicates a pain score of 5/10. MEDICAL/SURGICAL HISTORY: Diabetes. Renal cell carcinoma. Hypertension. CABG. Cholecystectomy. RADIATION DOSE: 15.45 CTDI (mGy) COMPARISON: No prior exams available for comparison. TECHNIQUE: Helical acquisition was performed using a multirow detector CT scanner during the adminis tration of 70 ml Omnipaque 350 (iohexol) nonionic water-soluble contrast as a single exam dose. Usi ng automated exposure control and adjustment of the mA and/or kV according to patient size, radiation dose was kept as low as reasonably achievable to obtain optimal diagnostic quality images. DICOM fo rmat image data is available electronically for review and comparison. FINDINGS: Nasopharynx: The nasopharyngeal airway has a normal configuration. No mucosal thickening or mass is seen. Oropharynx: The intrinsic muscles of the tongue are symmetric. The tonsillar pillars are intact. T he prevertebral soft tissues are not thickened. Larynx: The supraglottic, glottic, and infraglottic structures are intact. Parapharyngeal: The parapharyngeal space is intact. Salivary Glands: The anterior left parotid gland there is a thick walled cystic mass measuring 2.5 x 2.4 cm with adjacent inflammatory change in the soft tissues. Parotid and 70 mg are otherwise symmet dmitry and within normal limits. Lymph Nodes: No enlarged or necrotic-appearing nodes. Thyroid: A normal thyroid is not visualized. Bones: Prominent degenerative findings of the cervical spine. Paranasal sinuses are clear. Post Contrast: No other areas of abnormal enhancement identified. CONCLUSION: 1. 2 cm thick-walled cystic mass or abscess in the left parotid gland with adjacent inflammatory ramon nge. 2. Severe degenerative findings of the cervical spine. Electronically signed by: Jl Clinton MD 06/10/2018 2:07 PM EDT
[2018-06-10] MEDS ORDERED: Ketorolac Inj 30 MG/ML (IVP) Vial IV.PUSH ONE (15:01)
--- NOTE | 2018-06-10 15:19 | P.HPFP ---
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 Patient reports that approximately 4 weeks ago the patient went camping and upon awakening noticed a grape sized hard mass on the left cheek. At the time there was no signs of a tick or spider bite in the area. Since then the mass has continued to grow and continues to be hard and at times appeared very red. Patient reports that approximately 2 weeks ago the patient sought medical attention and was admitted at [facility]. He was placed on IV vancomycin and Flagyl while inpatient as well as had an outpatient course of Keflex and clindamycin with no resolve. Patient reports that 2 weeks ago he had a biopsy of the area that revealed a very dark brown fluid that ultimately showed no cancerous pathology. Another biopsy was done 1 week ago that produced a pink to yellow fluid. Patient reports that over the last 2 weeks the area has grown and is now spreading to just below his left jaw. During the last 2 weeks he is also had intermittent fevers ranging from 102-99 degrees and has experienced what he describes as a dull ache in his left eye that is intermittent and self resolves. This ache happens 1-2 times a day with no exacerbating relieving factors. Patient also reports that it is painful to open his mouth all the way and that chewing bothers him. He denies any dysphagia or odynophagia but has experience numbness in his throat. Patient denies having any neck stiffness or any redness or swelling around the eye. Patient does report that over the last 2 weeks he has had malodorous watery diarrhea. He endorses some nausea without vomiting. He denies any chest pain, shortness of breath, abdominal pain, or urinary symptoms but does report decreased urinary frequency as well as darker urine. 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 3 children alive and healthy, oldest son 54 years old. 15 pack year quict at 34 yars old. 2-3 beers a month Allergies: Sulfa, lactose intolerant. Code: Full code <Zander Monzon - 06/10/18 18:13> - Diagnosis (1) Mass of parotid gland (2) A-fib (3) Glaucoma (4) Blind in both eyes (5) Diabetes (6) Hypertension (7) Hyperlipidemia (8) Hypothyroidism (9) Nutrition, metabolism, and development symptoms <Martin Malone - 06/11/18 13:26> (1) Mass of parotid gland (2) A-fib (3) Glaucoma (4) Blind in both eyes (5) Diabetes (6) Hypertension (7) Hyperlipidemia (8) Hypothyroidism (9) Nutrition, metabolism, and development symptoms <Zander Monzon - 06/10/18 18:35> Inpatient Certification: I certify that the inpatient services were ordered in accordance with Medicare regulations governing the order. This includes certification that hospital inpatient services are reasonable and necessary and in the case of services not specified as inpatient-only under 42 CFR 419.22(n), that they are appropriately provided as inpatient services in accordance to with the 2-midnight benchmark under 43 CFR 412.3(e) <Martin Malone - 06/11/18 13:26> I certify that the inpatient services were ordered in accordance with Medicare regulations governing the order. This includes certification that hospital inpatient services are reasonable and necessary and in the case of services not specified as inpatient-only under 42 CFR 419.22(n), that they are appropriately provided as inpatient services in accordance to with the 2-midnight benchmark under 43 CFR 412.3(e) <Zander Monzon Angie - 06/10/18 15:19> Review of Systems Constitutional: Endorses 4-week history of swelling in his left jaw as well as intermittent fevers, denies chills, Denies headache(s), Denies dizziness, Eyes: Patient is blind in both eyes but does report that prior to 2 weeks ago he was able to see shadows but now sees nothing. Cardiovascular: Denies chest pain, Denies fast heart rate, Denies rapid, pounding, or irregular heartbeat Respiratory: Denies shortness of breath or wheezing Gastrointestinal: Endorses nausea without vomiting, as well as a 2-week history of watery foul-smelling diarrhea denies abdominal pain, Denies constipation, Genitourinary: Endorses less frequent urination with dark colored urine, denies difficulty urinating, Denies painful urination, Denies blood in urine Musculoskeletal: Patient endorses some mild lower extremity swelling over the last couple of weeks <NicolásZander Adams - 06/10/18 18:13> PMF - History History Provided By: Patient <NicolásZander Adams - 06/10/18 15:19> - Medical History Medical History: Medical History (Last Reviewed 06/10/18 @ 10:51 by Bessy Pichardo) Afib Blind Blockage of kidney vein Diabetes Hyperlipidemia Hypertension Hypothyroidism Kidney carcinoma Renal artery stenosis <Martin Malone - 06/11/18 13:26> Medical History (Last Reviewed 06/10/18 @ 10:51 by Bessy Pichardo) Afib Blind Blockage of kidney vein Diabetes Hyperlipidemia Hypertension Hypothyroidism Kidney carcinoma Renal artery stenosis <NicolásZander Adams - 06/10/18 15:19> - Surgical History Surgical History: Surgical History (Last Reviewed 06/10/18 @ 10:51 by Bessy Pichardo) History of cholecystectomy S/P CABG x 2 <Martin Malone - 06/11/18 13:26> Surgical History (Last Reviewed 06/10/18 @ 10:51 by Bessy Pichardo) History of cholecystectomy S/P CABG x 2 <Zander Monzon - 06/10/18 15:19> - Family History Family History: Family History (Last Reviewed 06/06/18 @ 15:05 by Jorge Gant MD) Other Coronary artery disease <Martin Malone - 06/11/18 13:26> Family History (Last Reviewed 06/06/18 @ 15:05 by Jorge Gant MD) Other Coronary artery disease <Zander Monzon Angie - 06/10/18 15:19> - Tobacco History Second Hand Smoke Exposure: No <Zander Monzon Angie Kwong 06/10/18 15:19> Smoking Status: Former smoker <Zander Monzon Angie Kwong 06/10/18 15:19> Tobacco Type: Cigarettes <Zander Monzon Angie - 06/10/18 15:19> - Alcohol History How Often Do You Have a Drink Containing Alcohol: Monthly or less <Nicolás Zander Kwong 06/10/18 15:19> - Substance Use History Substance History: No History of Abuse <Zander Monzon Angie Kwong 06/10/18 15:19> - Travel History Recent Travel in the [facility] Within the Last 8 Weeks: No <Zander Monzon Angie 15:19> Recent Travel Out of the Country Within the Last 8 Weeks: No <Zander Monzon Angie Kwong 06/10/18 15:19> - Immunization History Tetanus Immunization: <5 Years <Zander Monzon Angie Kwong 06/10/18 15:19> Medications and Allergies Allergies Allergy/AdvReac Type Severity Reaction Status Date / Time Sulfa (Sulfonamide Allergy Mild unknown Verified 06/10/18 10:52 Antibiotics) <Martin Malone - 06/11/18 13:26> Home Medications Medication Instructions Recorded Confirmed Type Saccharomyces boulardii [Florastor] 250 mg PO DAILY 05/25/18 06/10/18 History carvedilol 25 mg PO BID 05/25/18 06/10/18 History lisinopril 40 mg PO DAILY 05/25/18 06/10/18 History metformin 500 mg PO BID 05/25/18 06/10/18 History warfarin 5 mg PO DIRECTED 05/25/18 06/10/18 History carteolol 1 drp LEFT EYE BID 05/26/18 06/10/18 History empagliflozin [Jardiance] 12.5 mg PO QAM 05/26/18 06/10/18 History furosemide 20 mg PO DAILY 05/26/18 06/10/18 History insulin glargine [Lantus U-100 60 unit SUBCUT HS 05/26/18 06/10/18 History Insulin] levothyroxine 150 mcg PO 0600 05/26/18 06/10/18 History nitroglycerin 0.4 mg SUBLINGUAL Q5-15M PRN 05/26/18 06/10/18 History prednisolone acetate 1 drp RIGHT EYE TID 05/26/18 06/10/18 History rosuvastatin 40 mg PO DAILY 05/26/18 06/10/18 History warfarin 7.5 mg PO 3XW 06/10/18 06/10/18 History <Martin Malone L - 06/11/18 13:26> Active Medications: Active Medications Acetaminophen (Tylenol) 650 mg PO Q4H PRN PRN Reason: Temp > 100.4 Last Admin: 06/11/18 08:50 Dose: 650 mg Hydrocodone Bitart/Acetaminophen ([place] 5/325) 1 tab PO Q4H PRN PRN Reason: PAIN SCALE 3 TO 5 Hydrocodone Bitart/Acetaminophen ([place] 7.5/325) 1 tab PO Q4H PRN PRN Reason: PAIN SCALE 6 TO 10 Al Hydroxide/Mg Hydroxide (Milk Of Magnesia Liq) 30 ml PO Q12H PRN PRN Reason: Mild Constipation Atorvastatin Calcium (Lipitor) 80 mg PO DAILY [facility] Last Admin: 06/11/18 08:50 Dose: 80 mg Bisacodyl (Dulcolax Supp) 10 mg RECTAL DAILY PRN PRN Reason: SEVERE CONSITIPATION Carvedilol (Coreg) 25 mg PO BID [facility] Last Admin: 06/11/18 08:49 Dose: 25 mg Dextrose (D50w Vial) 50 ml IV.PUSH UNSCH PRN PRN Reason: PER HYPOGLYCEMIA PROTOCOL Furosemide (Lasix) 20 mg PO DAILY [facility] Last Admin: 06/11/18 08:50 Dose: 20 mg Glucagon (Glucagon Inj) 1 mg OTHER UNSCH PRN PRN Reason: for Hypoglycemia Protocol Vancomycin HCl 1,000 mg/ (Sodium Chloride) 250 mls @ 250 mls/hr IV.SIG Q24H [facility] Last Infusion: 06/10/18 19:51 Dose: Infused Piperacillin/Tazobactam/Dextrose (Zosyn 4.5 Gm Premix) 4.5 gm in 100 mls @ 200 mls/hr IV.SIG Q6H [facility] Last Infusion: 06/11/18 13:01 Dose: Infused Insulin Aspart (Novolog Insulin Correctional Sugar Inj) 0 unit SQ ACHS [facility]; Protocol Last Admin: 06/11/18 12:05 Dose: 5 unit Lactulose (Lactulose Liq) 30 ml PO DAILY PRN PRN Reason: SEVERE CONSITIPATION Levothyroxine Sodium (Synthroid) 150 mcg PO 0600 [facility] Last Admin: 06/11/18 05:22 Dose: 150 mcg Lisinopril (Prinivil) 40 mg PO DAILY [facility] Last Admin: 06/11/18 08:50 Dose: 40 mg Morphine Sulfate (Morphine Inj) 4 mg IV.PUSH Q3H PRN PRN Reason: BREAKTHROUGH PAIN Naloxone HCl (Narcan Inj) 0.4 mg IV.PUSH UNSCH PRN PRN Reason: SEE LABEL COMMENTS Patient Medication Teaching (Coumadin Booklet) 1 each OTHER ONCE ONE Stop: 06/11/18 16:01 Pom:(Carteolol [ (Carteolol] 1 Drp)) 0 each LEFT EYE BID [facility] Last Admin: 06/10/18 23:36 Dose: Not Given Prednisolone Acetate (Pred Forte 1% Opth Susp) 1 drop RIGHT EYE TID [facility] Last Admin: 06/11/18 09:04 Dose: 1 drop Sennosides (Senokot) 17.2 mg PO Q12H PRN PRN Reason: Moderate Constipation Warfarin Sodium (Coumadin) 5 mg PO SuTuThSa@1600 [facility] <Martin Malone L - 06/11/18 13:26> Exam Vital signs: Vital Signs 06/10/18 14:41 06/10/18 17:57 06/10/18 18:00 Temperature Pulse Rate 73 78 72 Respiratory Rate 16 19 Blood Pressure 111/67 142/87 H Pulse Oximetry 98 98 06/10/18 19:04 06/10/18 20:00 06/10/18 20:40 Temperature 98.3 F Pulse Rate 77 80 83 Respiratory Rate 22 18 Blood Pressure 129/70 158/80 H Pulse Oximetry 97 98 06/11/18 00:00 06/11/18 04:00 06/11/18 06:32 Temperature 97.3 F L 97.4 F L Pulse Rate 77 83 78 Respiratory Rate 18 18 Blood Pressure 133/77 134/81 Pulse Oximetry 97 97 06/11/18 08:00 06/11/18 09:00 06/11/18 12:00 Temperature 98.0 F 98.5 F Pulse Rate 82 85 75 Respiratory Rate 18 18 Blood Pressure 147/81 H 118/59 L Pulse Oximetry 96 96 Intake & Output 06/10/18 06/11/18 06/11/18 19:59 06:59 18:59 Intake Total 100 / 100 Output Total Balance 100 / 100 Weight Intake: IV 100 / 100 Zosyn 3.375 GM Premix 50 ML @ 100 mls/hr IV.SIG ONCE ONE Rx#: [id number] Zosyn 4.5 GM Premix 4.5 gm In 100 / 100 100 ml @ 200 mls/hr IV.SIG Q6H SNOW Rx#:[id number] Vancomycin Inj 1,000 MG In NS Inj 250 ML @ 250 mls/hr IV.SIG Q24H SNOW Rx#:[id number] Output: Urine Other: Weight On Admission <Martin Malone L - 06/11/18 13:26> Vital Signs 06/10/18 10:38 06/10/18 11:23 06/10/18 14:41 Temperature 97.8 F Pulse Rate 88 72 73 Respiratory Rate 16 21 16 Blood Pressure 184/83 H 138/93 H 111/67 Pulse Oximetry 96 97 98 Intake & Output 06/09/18 06/10/18 06/10/18 18:59 06:59 18:59 Intake Total 50 / 50 Balance 50 / 50 Weight 102.058 kg Intake: IV 50 / 50 Zosyn 3.375 GM Premix 50 ML @ 50 / 50 100 mls/hr IV.SIG ONCE ONE Rx#: [id number] <NicolásZander O - 06/10/18 15:19> Narrative: GENERAL: Obese, well-nourished, well-developed patient. No acute distress. SKIN: Warm and dry. No rash. EYES: Left eye is completely opaque, right eye within normal limits the patient is blind in both eyes, no scleral icterus or injection, no orbital swelling in either eyes HENT: Patient has a 4 x 8 cm firm nondraining non-erythematous mass overlying the left parotid gland. It begins just before the tragus and circumscribed around behind the pinna and down the SCM. Area has been demarcated. No oropharyngeal erythema or exudate or signs of infection. No exudate or drainage from parotid duct opening on the left buccal mucosa. No gingivitis appreciated in mouth. NECK: Patient has significant anterior cervical lymphadenopathy bilaterally. Swelling overlying left parotid includes the superior overlying portion of the sternocleidomastoid. CARDIOVASCULAR: Regular rate and rhythm without obvious murmurs, gallops, or rubs. RESPIRATORY: Breath sounds equal bilaterally. No accessory muscle use. CTAB. GASTROINTESTINAL: Abdomen soft, non-tender, nondistended. BS WNL. MUSCULOSKELETAL: No cyanosis 1+ pitting edema chcf up the shins bilaterally. Strength grossly WNL. BACK: Nontender without obvious deformity. No CVA tenderness. NEURO/PSYCH: Afocal. Awake, alert, and oriented x3. <Zander Monzon O - 06/10/18 18:13> Results - Labs Result diagrams: 06/11/18 06:39 06/11/18 06:39 <Martin Malone L - 06/11/18 13:26> Abnormal lab results 06/10/18 06/11/18 06/11/18 Range/Units 20:11 06:39 06:39 Hgb 12.0 L (13.0-17.0) gm/dL Hct 36.6 L (39.0-51.0) % MCV 77.3 L (80.0-100.0) fL MCH 25.4 L (27.0-34.0) pg RDW 18.9 H (11.6-17.2) % Plt Count 136 L (150-450) th/mm3 Neut % (Auto) 77.2 H (16.0-70.0) % Lymph # (Auto) 0.6 L (1.0-4.8) th/mm3 PT 34.5 H (9.8-11.6) sec Creatinine (0.60-1.30) mg/dL Estimated GFR (>89) mL/min POC Glucose 161 H (68-110) mg/dl Random Glucose (74-106) mg/dL Calcium (8.5-10.1) mg/dL Total Protein (6.4-8.2) g/dL Albumin (3.4-5.0) g/dL 06/11/18 06/11/18 06/11/18 Range/Units 06:39 07:48 12:04 Hgb (13.0-17.0) gm/dL Hct (39.0-51.0) % MCV (80.0-100.0) fL MCH (27.0-34.0) pg RDW (11.6-17.2) % Plt Count (150-450) th/mm3 Neut % (Auto) (16.0-70.0) % Lymph # (Auto) (1.0-4.8) th/mm3 PT (9.8-11.6) sec Creatinine 1.65 H (0.60-1.30) mg/dL Estimated GFR 40 L (>89) mL/min POC Glucose 212 H 268 H (68-110) mg/dl Random Glucose 196 H (74-106) mg/dL Calcium 8.2 L (8.5-10.1) mg/dL Total Protein 6.2 L D (6.4-8.2) g/dL Albumin 3.0 L (3.4-5.0) g/dL Short CBC 06/11/18 Range/Units 06:39 WBC 4.4 (4.0-11.0) th/mm3 Hgb 12.0 L (13.0-17.0) gm/dL Hct 36.6 L (39.0-51.0) % Plt Count 136 L (150-450) th/mm3 BMP 06/11/18 06:39 Sodium 138 Potassium 4.1 Chloride 103 Carbon Dioxide 27.4 BUN 17 Creatinine 1.65 H Calcium 8.2 L Liver Function 06/11/18 Range/Units 06:39 Total Bilirubin 0.6 (0.2-1.0) mg/dL AST 27 (15-37) U/L ALT 26 (12-78) U/L Alkaline Phosphatase 69 (45-117) U/L Albumin 3.0 L (3.4-5.0) g/dL <Martin Malone L - 06/11/18 13:26> Abnormal lab results 06/10/18 06/10/18 06/10/18 Range/Units 11:15 11:15 11:46 MCH 25.9 L (27.0-34.0) pg RDW 19.2 H (11.6-17.2) % Plt Count 130 L (150-450) th/mm3 Neut % (Auto) 76.2 H (16.0-70.0) % Lymph # (Auto) 0.8 L (1.0-4.8) th/mm3 Creatinine 1.52 H (0.60-1.30) mg/dL Estimated GFR 44 L (>89) mL/min POC Glucose 292 H (68-110) mg/dl Random Glucose 272 H (74-106) mg/dL Short CBC 06/10/18 Range/Units 11:15 WBC 4.8 (4.0-11.0) th/mm3 Hgb 13.0 (13.0-17.0) gm/dL Hct 40.2 (39.0-51.0) % Plt Count 130 L (150-450) th/mm3 BMP 06/10/18 11:15 Sodium 138 Potassium 4.8 Chloride 103 Carbon Dioxide 29.4 BUN 18 Creatinine 1.52 H Calcium 8.9 Liver Function 06/10/18 Range/Units 11:15 Total Bilirubin 0.4 (0.2-1.0) mg/dL AST 26 (15-37) U/L ALT 29 (12-78) U/L Alkaline Phosphatase 92 (45-117) U/L Albumin 3.5 (3.4-5.0) g/dL <Zander Monzon 06/10/18 15:19> - Imaging Impressions Chest X-Ray 06/10/18 11:03 CONCLUSION: Cardiac silhouette enlargement. Lungs clear. Soft Tissue Neck CT 06/10/18 11:03 CONCLUSION: 1. 2 cm thick-walled cystic mass or abscess in the left parotid gland with adjacent inflammatory change. 2. Severe degenerative findings of the cervical spine. <Zander Monzon - 06/10/18 15:19> Caprini VTE Risk Assessment Caprini VTE Risk Assessment: Moderate/High Risk (score >= 2) <Zander Monzon 06/10/18 18:13> Caprini Risk Assessment Model: Point Value = 1 Point Value = 2 Point Value = 3 Point Value = 5 Age 41-60 Minor surgery BMI > 25 kg/m2 Swollen legs Varicose veins or History of unexplained or recurrent spontaneous Oral contraceptives or hormone replacement Sepsis (< 1 month) Serious lung disease, including pneumonia (< 1 month) Abnormal pulmonary function Acute myocardial infarction Congestive heart failure (< 1 month) History of inflammatory bowel disease Medical patient at bed rest Age 61-74 Arthroscopic surgery Major open surgery (> 45 min) Laparoscopic surgery (> 45 min) Malignancy Confined to bed (> 72 hours) Immobilizing plaster cast Central venous access Age >= 75 History of VTE Family history of VTE Factor V Leiden Prothrombin [id number] Lupus anticoagulant Anticardiolipin antibodies Elevated serum homocysteine Heparin-induced thrombocytopenia Other congenital or acquired thrombophilia Stroke (< 1 month) Elective arthroplasty Hip, pelvis, or leg fracture Acute spinal cord injury (< 1 month) <Martin Malone L - 06/11/18 13:26> Point Value = 1 Point Value = 2 Point Value = 3 Point Value = 5 Age 41-60 Minor surgery BMI > 25 kg/m2 Swollen legs Varicose veins or History of unexplained or recurrent spontaneous Oral contraceptives or hormone replacement Sepsis (< 1 month) Serious lung disease, including pneumonia (< 1 month) Abnormal pulmonary function Acute myocardial infarction Congestive heart failure (< 1 month) History of inflammatory bowel disease Medical patient at bed rest Age 61-74 Arthroscopic surgery Major open surgery (> 45 min) Laparoscopic surgery (> 45 min) Malignancy Confined to bed (> 72 hours) Immobilizing plaster cast Central venous access Age >= 75 History of VTE Family history of VTE Factor V Leiden Prothrombin [id number] Lupus anticoagulant Anticardiolipin antibodies Elevated serum homocysteine Heparin-induced thrombocytopenia Other congenital or acquired thrombophilia Stroke (< 1 month) Elective arthroplasty Hip, pelvis, or leg fracture Acute spinal cord injury (< 1 month) <Zander Monzon O - 06/10/18 15:19> Prophylaxis Regimen: Total Risk Factor Score Risk Level Prophylaxis Regimen 0-1 Low Early ambulation 2 Moderate Order ONE of the following: *Sequential Compression Device (SCD) *Heparin 5000 units SQ BID 3-4 Higher Order ONE of the following medications: *Heparin 5000 units SQ TID *Enoxaparin/Lovenox 40 mg SQ daily (WT < 150 kg, CrCl > 30 mL/min) *Enoxaparin/Lovenox 30 mg SQ daily (WT < 150 kg, CrCl > 10-29 mL/min) *Enoxaparin/Lovenox 30 mg SQ BID (WT < 150 kg, CrCl > 30 mL/min) AND/OR *Sequential Compression Device (SCD) 5 or more Highest Order ONE of the following medications: *Heparin 5000 units SQ TID (Preferred with Epidurals) *Enoxaparin/Lovenox 40 mg SQ daily (WT < 150 kg, CrCl > 30 mL/min) *Enoxaparin/Lovenox 30 mg SQ daily (WT < 150 kg, CrCl > 10-29 mL/min) *Enoxaparin/Lovenox 30 mg SQ BID (WT < 150 kg, CrCl > 30 mL/min) AND *Sequential Compression Device (SCD) <Martin Malone L - 06/11/18 13:26> Total Risk Factor Score Risk Level Prophylaxis Regimen 0-1 Low Early ambulation 2 Moderate Order ONE of the following: *Sequential Compression Device (SCD) *Heparin 5000 units SQ BID 3-4 Higher Order ONE of the following medications: *Heparin 5000 units SQ TID *Enoxaparin/Lovenox 40 mg SQ daily (WT < 150 kg, CrCl > 30 mL/min) *Enoxaparin/Lovenox 30 mg SQ daily (WT < 150 kg, CrCl > 10-29 mL/min) *Enoxaparin/Lovenox 30 mg SQ BID (WT < 150 kg, CrCl > 30 mL/min) AND/OR *Sequential Compression Device (SCD) 5 or more Highest Order ONE of the following medications: *Heparin 5000 units SQ TID (Preferred with Epidurals) *Enoxaparin/Lovenox 40 mg SQ daily (WT < 150 kg, CrCl > 30 mL/min) *Enoxaparin/Lovenox 30 mg SQ daily (WT < 150 kg, CrCl > 10-29 mL/min) *Enoxaparin/Lovenox 30 mg SQ BID (WT < 150 kg, CrCl > 30 mL/min) AND *Sequential Compression Device (SCD) <Zander Monzon O - 06/10/18 15:19> Assessment and Plan - Assessment (1) Mass of parotid gland Code(s): K11.9 - Disease of salivary gland, unspecified Status: Acute (2) A-fib Code(s): I48.91 - Unspecified atrial fibrillation Status: Acute (3) Glaucoma Code(s): H40.9 - Unspecified glaucoma Status: Acute (4) Blind in both eyes Code(s): H54.3 - Unqualified visual loss, both eyes Status: Acute (5) Diabetes Code(s): E11.9 - Type 2 diabetes mellitus without complications Status: Acute (6) Hypertension Code(s): I10 - Essential (primary) hypertension Status: Acute (7) Hyperlipidemia Code(s): E78.5 - Hyperlipidemia, unspecified Status: Acute (8) Hypothyroidism Code(s): E03.9 - Hypothyroidism, unspecified Status: Acute (9) Nutrition, metabolism, and development symptoms Code(s): R63.8 - Other symptoms and signs concerning food and fluid intake Status: Acute <Martin Malone - 06/11/18 13:26> (1) Mass of parotid gland Code(s): K11.9 - Disease of salivary gland, unspecified Status: Acute Plan: Patient has a 4-week history of left parotid gland swelling. Previously on Vanco and Zosyn as well as outpatient Keflex and Clinda. Likely parotid abscess versus malignancy. -Head CT 05/25/18: 2.5 cm left facial abscess or necrotic mass in the anterior left parotid with surrounding edema or inflammatory change. -Soft tissue neck CT 06/10/18: 2 cm thick-walled cystic mass or abscess in the left parotid gland with adjacent inflammatory change -Begin vancomycin -Begin Zosyn -Follow-up with ENT consult, patient previously seen by Dr. Stoll -Consider incision and drainage -Follow-up with blood cultures (2) A-fib Code(s): I48.91 - Unspecified atrial fibrillation Status: Acute Plan: Patient has history of atrial fibrillation currently anticoagulated on Coumadin. EKG on admission showed atrial fibrillation that was not appreciated on physical exam. Patient is currently rate controlled. -Continue home Coumadin (3) Glaucoma Code(s): H40.9 - Unspecified glaucoma Status: Acute Plan: Patient history significant for glaucoma in both eyes. Patient previously had surgery but is ultimately blind in both eyes. 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 Patient blind in both eyes. -Please use precaution as patient is visually impaired (5) Diabetes Code(s): E11.9 - Type 2 diabetes mellitus without complications Status: Acute Plan: Patient known type II diabetic on metformin, Lantus, and Empagliflozin. 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 Patient normotensive on admission. -Continue home lisinopril, carvedilol, and furosemide (7) Hyperlipidemia Code(s): E78.5 - Hyperlipidemia, unspecified Status: Acute Plan: Patient has history of hyperlipidemia and has a cardiac history significant for quadruple bypass surgery as well as placement of stent -Continue home rosuvastatin (8) Hypothyroidism Code(s): E03.9 - Hypothyroidism, unspecified Status: Acute Plan: Patient suffers from hypothyroidism -Continue home levothyroxine 150 mcg (9) Nutrition, metabolism, and development symptoms Code(s): R63.8 - Other symptoms and signs concerning food and fluid intake Status: Acute Plan: Fluids: Not indicated at this time Electrolytes: Replete as needed Nutrition: Diabetic diet DVT prophylaxis: Patient currently on Coumadin <Zander Monzon - 06/10/18 18:35> - Attending Attestation The exam, history, and the medical decision-making described in the above note were completed with the assistance of the resident physician. I reviewed and agree with the findings presented. I attest that I had a [id number] encounter with the patient on the same day alongside the residents, and personally performed and documented my assessment and findings in the medical record. Patient presents with parotitis/parotid mass, possible abscess. Will admit for antibiotics (vancomycin/Zosyn) and consult ENT for further workup, possible drainage. At this time he is protecting his airway without any concerns for airway obstruction, though this would be a concern if infection spreads. <Martin Malone - 06/11/18 13:26> <FaisalMartin Dangelo - Last Filed: 06/11/18 13:26> (5) Diabetes Qualifiers: Diabetes mellitus type: type 2 Diabetes mellitus prison insulin use: without prison use Diabetes mellitus complication status: without complication Qualified Code(s): E11.9 - Type 2 diabetes mellitus without complications (6) Hypertension Qualifiers: Hypertension type: essential hypertension Qualified Code(s): I10 - Essential (primary) hypertension (7) Hyperlipidemia Qualifiers: Hyperlipidemia type: unspecified Qualified Code(s): E78.5 - Hyperlipidemia, unspecified <Martin Malone - Last Filed: 06/11/18 13:26> (5) Diabetes Qualifiers: Diabetes mellitus type: type 2 Diabetes mellitus prison insulin use: without 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
[2018-06-10] MEDS ORDERED: Bisacodyl 10 MG Supp RECTAL PRN (16:07)
[2018-06-10] MEDS ORDERED: Morphine Inj 4 MG/ML Vial IV.PUSH PRN (16:12)
[2018-06-10] MEDS ORDERED: Naloxone Inj 0.4 MG/ML Vial IV.PUSH PRN (16:12)
[2018-06-10] MEDS ORDERED: Dextrose 50% in Water 50 ML Vial IV.PUSH PRN (16:54)
[2018-06-10] MEDS: Vancomycin Inj 1,000 MG in Sodium Chlor 0.9% Inj 250 ML IV.SIG SCH (17:55)
[2018-06-10] MEDS: Furosemide 20 MG Tablet PO SCH (17:55)
[2018-06-10] MEDS: Insulin NovoLOG Aspart Correctional Sugar Inj SQ SCH ×2 (17:56→22:03)
[2018-06-10] MEDS: Piperacil/Tazo 4.5 GM Premix 4.5 GM/100 ML BAG IV.SIG SCH (19:17)
[2018-06-10] MEDS: Carvedilol 12.5 MG Tablet PO SCH (22:02)
[2018-06-10] MEDS: prednisoLONE Acetate 1% Opth Susp 5 ML Bottle RIGHT EYE SCH (23:35)
[2018-06-10] MEDS: [UNRECOGNIZED DRUG - OTHER] LEFT EYE SCH (23:36)
[2018-06-11] MEDS: Piperacil/Tazo 4.5 GM Premix 4.5 GM/100 ML BAG IV.SIG SCH ×5 (00:29→23:16)
[2018-06-11] MEDS: Levothyroxine 150 MCG Tablet PO SCH (05:22)
[2018-06-11 07:05] LABS: Baso % (Auto) 0.4 % (0.0-2.0); Eos % (Auto) 0.5 % (0.0-4.0); Hematocrit 36.6 % (39.0-51.0); Lymph # (Auto) 0.6 th/mm3 (1.0-4.8); Lymph % (Auto) 14.3 % (9.0-44.0); Mean Corpuscular HGB Conc 32.9 % (32.0-36.0); Mean Corpuscular Hemoglobin 25.4 pg (27.0-34.0); Mean Corpuscular Volume 77.3 fL (80.0-100.0); Mean Platelet Volume 8.2 fL (7.0-11.0); Mono # (Auto) 0.3 th/mm3 (0.0-0.9); Mono % (Auto) 7.6 % (0.0-8.0); Neut # (Auto) 3.4 th/mm3 (1.8-7.7); Neut % (Auto) 77.2 % (16.0-70.0); Platelet Count 136 th/mm3 (150-450); Red Blood Count 4.73 mil/mm3 (4.50-5.90); Red Cell Distribution Width 18.9 % (11.6-17.2); White Blood Count 4.4 th/mm3 (4.0-11.0)
[2018-06-11 07:09] LABS: INR 3.4 Ratio; Prothrombin Time 34.5 sec (9.8-11.6)
[2018-06-11 07:29] LABS: Anion Gap 8 meq/L (5-15); Aspartate Aminotransferase 27 U/L (15-37); Blood Urea Nitrogen 17 mg/dL (7-18); Calcium 8.2 mg/dL (8.5-10.1); Carbon Dioxide 27.4 meq/L (21.0-32.0); Chloride 103 meq/L (98-107); Glomerular Filtration Rate 40 mL/min (>89); Glucose,Random 196 mg/dL (74-106); Potassium 4.1 meq/L (3.5-5.1); Sodium 138 meq/L (136-145)
[2018-06-11 07:30] LABS: Alanine Aminotransferase 26 U/L (12-78)
[2018-06-11 07:32] LABS: Alkaline Phosphatase 69 U/L (45-117); Total Protein 6.2 g/dL (6.4-8.2)
[2018-06-11] MEDS: Carvedilol 12.5 MG Tablet PO SCH ×2 (08:49→20:40)
[2018-06-11] MEDS: Acetaminophen 325 MG Tablet PO PRN ×2 (08:50→13:53)
[2018-06-11] MEDS: Lisinopril 20 MG Tablet PO SCH (08:50)
[2018-06-11] MEDS: Furosemide 20 MG Tablet PO SCH (08:50)
[2018-06-11] MEDS: Insulin NovoLOG Aspart Correctional Sugar Inj SQ SCH ×4 (08:51→21:04)
[2018-06-11] MEDS: prednisoLONE Acetate 1% Opth Susp 5 ML Bottle RIGHT EYE SCH ×3 (09:04→17:46)
--- NOTE | 2018-06-11 13:08 | P.PNFP ---
Subjective Interval history: 78 yo male with DM, HTN, AFib admitted for recurrent left facial swelling found to be due to parotid gland mass likely abscess based on CT. Today feels well, felt like his swelling had gone down somewhat from yesterday. No fevers/chills. Pain mild. No CP/SOB. <Alan Xiong S - 06/11/18 13:07> Results - Labs Result diagrams: 06/11/18 06:39 06/11/18 06:39 <Martin Malone L - 06/11/18 13:21> Abnormal lab results 06/10/18 06/11/18 06/11/18 Range/Units 20:11 06:39 06:39 Hgb 12.0 L (13.0-17.0) gm/dL Hct 36.6 L (39.0-51.0) % MCV 77.3 L (80.0-100.0) fL MCH 25.4 L (27.0-34.0) pg RDW 18.9 H (11.6-17.2) % Plt Count 136 L (150-450) th/mm3 Neut % (Auto) 77.2 H (16.0-70.0) % Lymph # (Auto) 0.6 L (1.0-4.8) th/mm3 PT 34.5 H (9.8-11.6) sec Creatinine (0.60-1.30) mg/dL Estimated GFR (>89) mL/min POC Glucose 161 H (68-110) mg/dl Random Glucose (74-106) mg/dL Calcium (8.5-10.1) mg/dL Total Protein (6.4-8.2) g/dL Albumin (3.4-5.0) g/dL 06/11/18 06/11/18 06/11/18 Range/Units 06:39 07:48 12:04 Hgb (13.0-17.0) gm/dL Hct (39.0-51.0) % MCV (80.0-100.0) fL MCH (27.0-34.0) pg RDW (11.6-17.2) % Plt Count (150-450) th/mm3 Neut % (Auto) (16.0-70.0) % Lymph # (Auto) (1.0-4.8) th/mm3 PT (9.8-11.6) sec Creatinine 1.65 H (0.60-1.30) mg/dL Estimated GFR 40 L (>89) mL/min POC Glucose 212 H 268 H (68-110) mg/dl Random Glucose 196 H (74-106) mg/dL Calcium 8.2 L (8.5-10.1) mg/dL Total Protein 6.2 L D (6.4-8.2) g/dL Albumin 3.0 L (3.4-5.0) g/dL Short CBC 06/11/18 Range/Units 06:39 WBC 4.4 (4.0-11.0) th/mm3 Hgb 12.0 L (13.0-17.0) gm/dL Hct 36.6 L (39.0-51.0) % Plt Count 136 L (150-450) th/mm3 BMP 06/11/18 06:39 Sodium 138 Potassium 4.1 Chloride 103 Carbon Dioxide 27.4 BUN 17 Creatinine 1.65 H Calcium 8.2 L Liver Function 06/11/18 Range/Units 06:39 Total Bilirubin 0.6 (0.2-1.0) mg/dL AST 27 (15-37) U/L ALT 26 (12-78) U/L Alkaline Phosphatase 69 (45-117) U/L Albumin 3.0 L (3.4-5.0) g/dL <YoungMartin L - 06/11/18 13:21> Abnormal lab results 06/10/18 06/10/18 06/11/18 Range/Units 11:46 20:11 06:39 Hgb 12.0 L (13.0-17.0) gm/dL Hct 36.6 L (39.0-51.0) % MCV 77.3 L (80.0-100.0) fL MCH 25.4 L (27.0-34.0) pg RDW 18.9 H (11.6-17.2) % Plt Count 136 L (150-450) th/mm3 Neut % (Auto) 77.2 H (16.0-70.0) % Lymph # (Auto) 0.6 L (1.0-4.8) th/mm3 PT (9.8-11.6) sec Creatinine (0.60-1.30) mg/dL Estimated GFR (>89) mL/min POC Glucose 292 H 161 H (68-110) mg/dl Random Glucose (74-106) mg/dL Calcium (8.5-10.1) mg/dL Total Protein (6.4-8.2) g/dL Albumin (3.4-5.0) g/dL 06/11/18 06/11/18 06/11/18 Range/Units 06:39 06:39 07:48 Hgb (13.0-17.0) gm/dL Hct (39.0-51.0) % MCV (80.0-100.0) fL MCH (27.0-34.0) pg RDW (11.6-17.2) % Plt Count (150-450) th/mm3 Neut % (Auto) (16.0-70.0) % Lymph # (Auto) (1.0-4.8) th/mm3 PT 34.5 H (9.8-11.6) sec Creatinine 1.65 H (0.60-1.30) mg/dL Estimated GFR 40 L (>89) mL/min POC Glucose 212 H (68-110) mg/dl Random Glucose 196 H (74-106) mg/dL Calcium 8.2 L (8.5-10.1) mg/dL Total Protein 6.2 L D (6.4-8.2) g/dL Albumin 3.0 L (3.4-5.0) g/dL 06/11/18 Range/Units 12:04 Hgb (13.0-17.0) gm/dL Hct (39.0-51.0) % MCV (80.0-100.0) fL MCH (27.0-34.0) pg RDW (11.6-17.2) % Plt Count (150-450) th/mm3 Neut % (Auto) (16.0-70.0) % Lymph # (Auto) (1.0-4.8) th/mm3 PT (9.8-11.6) sec Creatinine (0.60-1.30) mg/dL Estimated GFR (>89) mL/min POC Glucose 268 H (68-110) mg/dl Random Glucose (74-106) mg/dL Calcium (8.5-10.1) mg/dL Total Protein (6.4-8.2) g/dL Albumin (3.4-5.0) g/dL Short CBC 06/11/18 Range/Units 06:39 WBC 4.4 (4.0-11.0) th/mm3 Hgb 12.0 L (13.0-17.0) gm/dL Hct 36.6 L (39.0-51.0) % Plt Count 136 L (150-450) th/mm3 BMP 06/11/18 06:39 Sodium 138 Potassium 4.1 Chloride 103 Carbon Dioxide 27.4 BUN 17 Creatinine 1.65 H Calcium 8.2 L Liver Function 06/11/18 Range/Units 06:39 Total Bilirubin 0.6 (0.2-1.0) mg/dL AST 27 (15-37) U/L ALT 26 (12-78) U/L Alkaline Phosphatase 69 (45-117) U/L Albumin 3.0 L (3.4-5.0) g/dL <Alan Xiong S - 06/11/18 13:07> - Imaging Impressions Soft Tissue Neck CT 06/10/18 11:03 CONCLUSION: 1. 2 cm thick-walled cystic mass or abscess in the left parotid gland with adjacent inflammatory change. 2. Severe degenerative findings of the cervical spine. <Alan Xiong - 06/11/18 13:07> Physical Exam Vital signs: Vital Signs 06/10/18 14:41 06/10/18 17:57 06/10/18 18:00 Temperature Pulse Rate 73 78 72 Respiratory Rate 16 19 Blood Pressure 111/67 142/87 H Pulse Oximetry 98 98 06/10/18 19:04 06/10/18 20:00 06/10/18 20:40 Temperature 98.3 F Pulse Rate 77 80 83 Respiratory Rate 22 18 Blood Pressure 129/70 158/80 H Pulse Oximetry 97 98 06/11/18 00:00 06/11/18 04:00 06/11/18 06:32 Temperature 97.3 F L 97.4 F L Pulse Rate 77 83 78 Respiratory Rate 18 18 Blood Pressure 133/77 134/81 Pulse Oximetry 97 97 06/11/18 08:00 06/11/18 09:00 06/11/18 12:00 Temperature 98.0 F 98.5 F Pulse Rate 82 85 80 Respiratory Rate 18 18 Blood Pressure 147/81 H 118/59 L Pulse Oximetry 96 96 Intake & Output 06/10/18 06/11/18 06/11/18 19:59 06:59 18:59 Intake Total 100 / 100 Output Total Balance 100 / 100 Weight Intake: IV 100 / 100 Zosyn 3.375 GM Premix 50 ML @ 100 mls/hr IV.SIG ONCE ONE Rx#: [id number] Zosyn 4.5 GM Premix 4.5 gm In 100 / 100 100 ml @ 200 mls/hr IV.SIG Q6H SNOW Rx#:[id number] Vancomycin Inj 1,000 MG In NS Inj 250 ML @ 250 mls/hr IV.SIG Q24H SNOW Rx#:[id number] Output: Urine Other: Weight On Admission <Martin Malone L - 06/11/18 13:21> Vital Signs 06/10/18 14:41 06/10/18 17:57 06/10/18 18:00 Temperature Pulse Rate 73 78 72 Respiratory Rate 16 19 Blood Pressure 111/67 142/87 H Pulse Oximetry 98 98 06/10/18 19:04 06/10/18 20:00 06/10/18 20:40 Temperature 98.3 F Pulse Rate 77 80 83 Respiratory Rate 22 18 Blood Pressure 129/70 158/80 H Pulse Oximetry 97 98 06/11/18 00:00 06/11/18 04:00 06/11/18 06:32 Temperature 97.3 F L 97.4 F L Pulse Rate 77 83 78 Respiratory Rate 18 18 Blood Pressure 133/77 134/81 Pulse Oximetry 97 97 06/11/18 08:00 06/11/18 09:00 06/11/18 12:00 Temperature 98.0 F 98.5 F Pulse Rate 82 85 80 Respiratory Rate 18 18 Blood Pressure 147/81 H 118/59 L Pulse Oximetry 96 96 Intake & Output 06/10/18 06/11/18 06/11/18 19:59 06:59 18:59 Intake Total Output Total Balance Weight Intake: IV Zosyn 3.375 GM Premix 50 ML @ 100 mls/hr IV.SIG ONCE ONE Rx#: [id number] Zosyn 4.5 GM Premix 4.5 gm In 100 ml @ 200 mls/hr IV.SIG Q6H SNOW Rx#:[id number] Vancomycin Inj 1,000 MG In NS Inj 250 ML @ 250 mls/hr IV.SIG Q24H SNOW Rx#:[id number] Output: Urine Other: Weight On Admission <Alan Xiong 06/11/18 13:07> - Constitutional no acute distress, average body habitus, cooperative <Alan Xiong 13:07> - Routine HEENT Exam Head: Present: normocephalic, atraumatic <Alan Xiong 06/11/18 13:07> Comments: swelling of left cheek extending slightly beyond marked area from yesterday's exam, some fluctuance, mildly tender, no erythema <Alan Xiong 06/11/18 13:07> - Routine Neck Exam Absent: lymphadenopathy <Alan Xiong 06/11/18 13:07> - Routine Respiratory Exam Present: CTA bilaterally. Absent: accessory muscle use, wheezes, crackles < Alan Xiong 06/11/18 13:07> - Routine Cardiovascular Exam Present: RRR, S1, S2. Absent: murmur <Alan Xiong 06/11/18 13:07> - Routine Abdominal Exam Present: soft. 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 Code(s): H54.3 - Unqualified visual loss, both eyes Status: Acute (5) Diabetes Code(s): E11.9 - Type 2 diabetes mellitus without complications Status: Acute (6) Hypertension Code(s): I10 - Essential (primary) hypertension Status: Acute (7) Hyperlipidemia Code(s): E78.5 - Hyperlipidemia, unspecified Status: Acute (8) Hypothyroidism Code(s): E03.9 - Hypothyroidism, unspecified Status: Acute (9) Nutrition, metabolism, and development symptoms Code(s): R63.8 - Other symptoms and signs concerning food and fluid intake Status: Acute <Martin Malone - 06/11/18 13:21> (1) Mass of parotid gland Code(s): K11.9 - Disease of salivary gland, unspecified Status: Acute Plan: Likely abscess based on CT findings, however has had several I&D with recurrence Head CT 05/25/18: 2.5 cm left facial abscess or necrotic mass in the anterior left parotid with surrounding edema or inflammatory change. Soft tissue neck CT 06/10/18: 2 cm thick-walled cystic mass or abscess in the left parotid gland with adjacent inflammatory change -Continue vancomycin -Continue Zosyn -ENT consulted, f/u recs; patient previously seen by Dr. Stoll -Consider incision and drainage bedside vs surgical exploration vs via ultrasound/CT guidance -Follow-up with blood cultures (2) A-fib Code(s): I48.91 - Unspecified atrial fibrillation Status: Acute Plan: Patient has history of atrial fibrillation currently anticoagulated on Coumadin. EKG on admission showed atrial fibrillation that was not appreciated on physical exam. Patient is currently rate controlled. -Continue home Coumadin (3) Glaucoma Code(s): H40.9 - Unspecified glaucoma Status: Acute Plan: Patient history significant for glaucoma in both eyes. Patient previously had surgery but is ultimately blind in both eyes. 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 Patient blind in both eyes. -Please use precaution as patient is visually impaired (5) Diabetes Code(s): E11.9 - Type 2 diabetes mellitus without complications Status: Acute Plan: Patient known type II diabetic on metformin, Lantus, and Empagliflozin. 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 Patient normotensive on admission. -Continue home lisinopril, carvedilol, and furosemide (7) Hyperlipidemia Code(s): E78.5 - Hyperlipidemia, unspecified Status: Acute Plan: Patient has history of hyperlipidemia and has a cardiac history significant for quadruple bypass surgery as well as placement of stent -Continue home rosuvastatin (8) Hypothyroidism Code(s): E03.9 - Hypothyroidism, unspecified Status: Acute Plan: Patient suffers from hypothyroidism -Continue home levothyroxine 150 mcg (9) Nutrition, metabolism, and development symptoms Code(s): R63.8 - Other symptoms and signs concerning food and fluid intake Status: Acute Plan: Fluids: Not indicated at this time Electrolytes: Replete as needed Nutrition: Diabetic diet DVT prophylaxis: Patient currently on Coumadin <Alan Xiong - 06/11/18 12:57> - Assessment and Plan Discharge Planning: Home pending ENT evaluation, management of parotid mass/ abscess <Alan Xiong S - 06/11/18 13:07> - Attending Attestation The exam, history, and the medical decision-making described in the above note were completed with the assistance of the resident physician. I reviewed and agree with the findings presented. I attest that I had a [id number] encounter with the patient on the same day alongside the residents, and personally performed and documented my assessment and findings in the medical record. Patient has significant parotitis, possible parotid abscess, although obstruction or malignancy is not ruled out definitively. ENT is on board, and he is receiving vancomycin and Zosyn. Parotid swelling is stable from yesterday. <Martin Malone - 06/11/18 13:21> <Alan Xiong S - Last Filed: 06/11/18 12:57> (5) Diabetes Qualifiers: Diabetes mellitus type: type 2 Diabetes mellitus assisted insulin use: without assisted use Diabetes mellitus complication status: without complication Qualified Code(s): E11.9 - Type 2 diabetes mellitus without complications (6) Hypertension Qualifiers: Hypertension type: essential hypertension Qualified Code(s): I10 - Essential (primary) hypertension (7) Hyperlipidemia Qualifiers: Hyperlipidemia type: unspecified Qualified Code(s): E78.5 - Hyperlipidemia, unspecified <Martin Malone L - Last Filed: 06/11/18 13:21> (5) Diabetes Qualifiers: Diabetes mellitus type: type 2 Diabetes mellitus superintendent container terminal insulin use: without assisted use Diabetes mellitus complication status: without complication Qualified Code(s): E11.9 - Type 2 diabetes mellitus without complications (6) Hypertension Qualifiers: Hypertension type: essential hypertension Qualified Code(s): I10 - Essential (primary) hypertension (7) Hyperlipidemia Qualifiers: Hyperlipidemia type: unspecified Qualified Code(s): E78.5 - Hyperlipidemia, unspecified <Alan Xiong S - Last Filed: 06/11/18 12:57> (5) Diabetes Qualifiers: Diabetes mellitus type: type 2 Diabetes mellitus superintendent container terminal insulin use: without superintendent container terminal use Diabetes mellitus complication status: without complication Qualified Code(s): E11.9 - Type 2 diabetes mellitus without complications (6) Hypertension Qualifiers: Hypertension type: essential hypertension Qualified Code(s): I10 - Essential (primary) hypertension (7) Hyperlipidemia Qualifiers: Hyperlipidemia type: unspecified Qualified Code(s): E78.5 - Hyperlipidemia, unspecified <Martin Malone - Last Filed: 06/11/18 13:21> (5) Diabetes Qualifiers: Diabetes mellitus type: type 2 Diabetes mellitus superintendent container terminal insulin use: without superintendent container terminal use Diabetes mellitus complication status: without complication Qualified Code(s): E11.9 - Type 2 diabetes mellitus without complications (6) Hypertension Qualifiers: Hypertension type: essential hypertension Qualified Code(s): I10 - Essential (primary) hypertension (7) Hyperlipidemia Qualifiers: Hyperlipidemia type: unspecified Qualified Code(s): E78.5 - Hyperlipidemia, unspecified
[2018-06-11] MEDS: [UNRECOGNIZED DRUG - OTHER] LEFT EYE SCH ×2 (13:54→20:42)
[2018-06-11] MEDS ORDERED: Lidocaine 1%/Epinephrine 1:100,000 Inj 30 ML Vial ONE (14:22)
--- NOTE | 2018-06-11 16:16 | MB ---
cc: Johnie Sotll MD DATE: 06/11/2018 CHIEF COMPLAINT: Left parotid abscess. HISTORY OF PRESENT ILLNESS: The patient is a 78-year-old male with diabetes, hypertension, atrial fibrillation, and blindness, admitted for recurrent left facial swelling with likely abscess based on CT scan. The patient has been seen and is well known by Dr. Chavira. Swelling has gone down slightly from yesterday. No fevers, chills, nausea or vomiting. He has been on numerous medicines since this initially began greater than a month ago, as per the patient. Reveals left parotid fullness. The airway was widely patent on flexible fiberoptic laryngoscopy. Needle aspiration was performed of the left parotid area, after using local anesthetic. Of note, the capsule was noted to be thick on the CT scan, and I was only able to get a mild amount of fluid. This is to be sent for culture and sensitivity. Also of note, because this was not decompressed fully and the patient is on warfarin, I recommend the patient to have ultrasound-guided full aspiration of this cystic fluid, possible abscess with cultures and sensitivities to be performed. The patient is on warfarin. This can be done in the next 24 hours by interventional radiology, likely tomorrow, as I have probed the area pretty significantly currently, and he is on warfarin. I also recommended after this is done, infectious disease evaluate the fluid. Thus, I recommend infectious disease consult as well. I am sure they will want to have the fluid aspirated and begin working on the contents prior to their evaluation. Thank you for this consultation. Johnie Stoll MD P[facility]/lc , 03:05 PM , 03:12 PM
[2018-06-11] MEDS: Vancomycin Inj 1,000 MG in Sodium Chlor 0.9% Inj 250 ML IV.SIG SCH (17:46)
[2018-06-11] MEDS ORDERED: Insulin Detemir Inj 1,000 UNIT/10 ML Vial SQ ONE (21:30)
--- NOTE | 2018-06-11 23:50 | ECG ---
Date Performed: 06/10/2018 Time Performed: 11:13:54 PTAGE: 78 years EKG: ATRIAL FIBRILLATION MARKED RIGHT AXIS DEVIATION RIGHT BUNDLE BRANCH BLOCK AND POSSIBLE RIGH T VENTRICULAR HYPERTROPHY INFERIOR MYOCARDIAL INFARCTION ABNORMAL ECG PREVIOUS TRACING : 05/25/2018 16.19 Since the previous tracing, no significant change noted DOCTOR: Ezra Duarte Interpretating Date/Time 06/11/2018 23:49:14
[2018-06-12] MEDS: Piperacil/Tazo 4.5 GM Premix 4.5 GM/100 ML BAG IV.SIG SCH ×3 (05:06→17:24)
[2018-06-12] MEDS: Levothyroxine 150 MCG Tablet PO SCH (05:13)
[2018-06-12 07:25] LABS: Baso % (Auto) 0.3 % (0.0-2.0); Eos % (Auto) 0.7 % (0.0-4.0); Hematocrit 36.8 % (39.0-51.0); Hemoglobin 12.1 gm/dL (13.0-17.0); Lymph # (Auto) 0.6 th/mm3 (1.0-4.8); Lymph % (Auto) 16.5 % (9.0-44.0); Mean Corpuscular HGB Conc 32.9 % (32.0-36.0); Mean Corpuscular Hemoglobin 25.7 pg (27.0-34.0); Mean Corpuscular Volume 78.1 fL (80.0-100.0); Mean Platelet Volume 8.4 fL (7.0-11.0); Mono # (Auto) 0.3 th/mm3 (0.0-0.9); Mono % (Auto) 8.6 % (0.0-8.0); Neut # (Auto) 2.8 th/mm3 (1.8-7.7); Neut % (Auto) 73.9 % (16.0-70.0); Platelet Count 141 th/mm3 (150-450); Red Blood Count 4.71 mil/mm3 (4.50-5.90); Red Cell Distribution Width 18.8 % (11.6-17.2); White Blood Count 3.8 th/mm3 (4.0-11.0)
[2018-06-12 07:57] LABS: Alanine Aminotransferase 25 U/L (12-78); Albumin 3.1 g/dL (3.4-5.0); Alkaline Phosphatase 80 U/L (45-117); Anion Gap 8 meq/L (5-15); Aspartate Aminotransferase 25 U/L (15-37); Blood Urea Nitrogen 16 mg/dL (7-18); Calcium 8.4 mg/dL (8.5-10.1); Carbon Dioxide 24.6 meq/L (21.0-32.0); Chloride 104 meq/L (98-107); Glomerular Filtration Rate 39 mL/min (>89); Glucose,Random 321 mg/dL (74-106); Sodium 137 meq/L (136-145); Total Protein 6.4 g/dL (6.4-8.2)
[2018-06-12] MEDS: Lisinopril 20 MG Tablet PO SCH (08:32)
[2018-06-12] MEDS: Carvedilol 12.5 MG Tablet PO SCH ×2 (08:32→21:23)
[2018-06-12] MEDS: Furosemide 20 MG Tablet PO SCH (08:32)
[2018-06-12] MEDS: [UNRECOGNIZED DRUG - OTHER] LEFT EYE SCH ×2 (08:32→21:27)
[2018-06-12] MEDS: prednisoLONE Acetate 1% Opth Susp 5 ML Bottle RIGHT EYE SCH ×3 (08:32→17:22)
[2018-06-12] MEDS: Insulin NovoLOG Aspart Correctional Sugar Inj SQ SCH ×4 (08:33→21:25)
--- NOTE | 2018-06-12 09:59 | P.PNFP ---
Subjective Interval history: 78 yo male with DM, HTN, AFib admitted for recurrent left facial swelling found to be due to parotid gland mass likely abscess based on CT. Patient seen and examined at bedside this am. Overnight patient was noted to have a blood sugar of 394 and was given 9 units of rapid acting insulin per sliding scale. He was also given one-time dose of Lantus 40 units. Denies difficulty breathing, eating or talking. Denies fever or chills overnight. Patient's girlfriend at bedside reports that Left sided facial swelling is worst and slightly more red than yesterday. Pain is well controlled with medication. Patient is awaiting IR guided aspiration of left parotid abscess. <Dav Whittington D - 06/12/18 09:59> Results - Labs Result diagrams: 06/12/18 06:45 06/12/18 06:45 <Martin Malone L - 06/12/18 16:54> Abnormal lab results 06/11/18 06/12/18 06/12/18 Range/Units 20:54 06:45 06:45 WBC 3.8 L (4.0-11.0) th/mm3 Hgb 12.1 L (13.0-17.0) gm/dL Hct 36.8 L (39.0-51.0) % MCV 78.1 L (80.0-100.0) fL MCH 25.7 L (27.0-34.0) pg RDW 18.8 H (11.6-17.2) % Plt Count 141 L (150-450) th/mm3 Neut % (Auto) 73.9 H (16.0-70.0) % Stevens % (Auto) 8.6 H (0.0-8.0) % Lymph # (Auto) 0.6 L (1.0-4.8) th/mm3 PT (9.8-11.6) sec Creatinine 1.69 H (0.60-1.30) mg/dL Estimated GFR 39 L (>89) mL/min POC Glucose 397 H (68-110) mg/dl Random Glucose 321 H D (74-106) mg/dL Calcium 8.4 L (8.5-10.1) mg/dL Albumin 3.1 L (3.4-5.0) g/dL 06/12/18 06/12/18 06/12/18 Range/Units 07:52 11:29 12:57 WBC (4.0-11.0) th/mm3 Hgb (13.0-17.0) gm/dL Hct (39.0-51.0) % MCV (80.0-100.0) fL MCH (27.0-34.0) pg RDW (11.6-17.2) % Plt Count (150-450) th/mm3 Neut % (Auto) (16.0-70.0) % Stevens % (Auto) (0.0-8.0) % Lymph # (Auto) (1.0-4.8) th/mm3 PT 19.9 H D (9.8-11.6) sec Creatinine (0.60-1.30) mg/dL Estimated GFR (>89) mL/min POC Glucose 315 H 296 H (68-110) mg/dl Random Glucose (74-106) mg/dL Calcium (8.5-10.1) mg/dL Albumin (3.4-5.0) g/dL 06/12/18 Range/Units 16:17 WBC (4.0-11.0) th/mm3 Hgb (13.0-17.0) gm/dL Hct (39.0-51.0) % MCV (80.0-100.0) fL MCH (27.0-34.0) pg RDW (11.6-17.2) % Plt Count (150-450) th/mm3 Neut % (Auto) (16.0-70.0) % Stevens % (Auto) (0.0-8.0) % Lymph # (Auto) (1.0-4.8) th/mm3 PT (9.8-11.6) sec Creatinine (0.60-1.30) mg/dL Estimated GFR (>89) mL/min POC Glucose 250 H (68-110) mg/dl Random Glucose (74-106) mg/dL Calcium (8.5-10.1) mg/dL Albumin (3.4-5.0) g/dL Short CBC 06/12/18 Range/Units 06:45 WBC 3.8 L (4.0-11.0) th/mm3 Hgb 12.1 L (13.0-17.0) gm/dL Hct 36.8 L (39.0-51.0) % Plt Count 141 L (150-450) th/mm3 BMP 06/12/18 06:45 Sodium 137 Potassium 4.0 Chloride 104 Carbon Dioxide 24.6 BUN 16 Creatinine 1.69 H Calcium 8.4 L Liver Function 06/12/18 Range/Units 06:45 Total Bilirubin 0.5 (0.2-1.0) mg/dL AST 25 (15-37) U/L ALT 25 (12-78) U/L Alkaline Phosphatase 80 (45-117) U/L Albumin 3.1 L (3.4-5.0) g/dL <Young,Martin L - 06/12/18 16:54> Abnormal lab results 06/11/18 06/11/18 06/11/18 Range/Units 12:04 16:26 20:54 WBC (4.0-11.0) th/mm3 Hgb (13.0-17.0) gm/dL Hct (39.0-51.0) % MCV (80.0-100.0) fL MCH (27.0-34.0) pg RDW (11.6-17.2) % Plt Count (150-450) th/mm3 Neut % (Auto) (16.0-70.0) % Stevens % (Auto) (0.0-8.0) % Lymph # (Auto) (1.0-4.8) th/mm3 Creatinine (0.60-1.30) mg/dL Estimated GFR (>89) mL/min POC Glucose 268 H 268 H 397 H (68-110) mg/dl Random Glucose (74-106) mg/dL Calcium (8.5-10.1) mg/dL Albumin (3.4-5.0) g/dL 06/12/18 06/12/18 06/12/18 Range/Units 06:45 06:45 07:52 WBC 3.8 L (4.0-11.0) th/mm3 Hgb 12.1 L (13.0-17.0) gm/dL Hct 36.8 L (39.0-51.0) % MCV 78.1 L (80.0-100.0) fL MCH 25.7 L (27.0-34.0) pg RDW 18.8 H (11.6-17.2) % Plt Count 141 L (150-450) th/mm3 Neut % (Auto) 73.9 H (16.0-70.0) % Stevens % (Auto) 8.6 H (0.0-8.0) % Lymph # (Auto) 0.6 L (1.0-4.8) th/mm3 Creatinine 1.69 H (0.60-1.30) mg/dL Estimated GFR 39 L (>89) mL/min POC Glucose 315 H (68-110) mg/dl Random Glucose 321 H D (74-106) mg/dL Calcium 8.4 L (8.5-10.1) mg/dL Albumin 3.1 L (3.4-5.0) g/dL Short CBC 06/12/18 Range/Units 06:45 WBC 3.8 L (4.0-11.0) th/mm3 Hgb 12.1 L (13.0-17.0) gm/dL Hct 36.8 L (39.0-51.0) % Plt Count 141 L (150-450) th/mm3 BMP 06/12/18 06:45 Sodium 137 Potassium 4.0 Chloride 104 Carbon Dioxide 24.6 BUN 16 Creatinine 1.69 H Calcium 8.4 L Liver Function 06/12/18 Range/Units 06:45 Total Bilirubin 0.5 (0.2-1.0) mg/dL AST 25 (15-37) U/L ALT 25 (12-78) U/L Alkaline Phosphatase 80 (45-117) U/L Albumin 3.1 L (3.4-5.0) g/dL <Dav Whittington D - 06/12/18 09:59> Physical Exam Vital signs: Vital Signs 06/11/18 20:00 06/11/18 20:15 06/12/18 00:00 Temperature 97.9 F 96 F L Pulse Rate 89 77 81 Respiratory Rate 20 18 Blood Pressure 148/75 H 125/59 L Pulse Oximetry 97 97 06/12/18 01:35 06/12/18 04:00 06/12/18 08:00 Temperature 97.9 F 97.5 F L Pulse Rate 94 H 88 88 Respiratory Rate 20 16 Blood Pressure 165/95 H 159/89 H Pulse Oximetry 94 L 98 06/12/18 09:00 06/12/18 12:00 06/12/18 16:00 Temperature 98.1 F 98 F Pulse Rate 77 72 76 Respiratory Rate 16 16 Blood Pressure 111/60 109/64 Pulse Oximetry 96 96 Intake & Output 06/11/18 06/12/18 06/12/18 18:59 06:59 18:59 Intake Total 1170 / 1170 580 / 580 100 / 100 Balance 1170 / 1170 580 / 580 100 / 100 Weight 101.1 kg Intake: IV 450 / 450 200 / 200 100 / 100 Zosyn 4.5 GM Premix 4.5 gm In 200 / 200 200 / 200 100 / 100 100 ml @ 200 mls/hr IV.SIG Q6H SNOW Rx#:[id number] Vancomycin Inj 1,000 MG In NS 250 / 250 Inj 250 ML @ 250 mls/hr IV.SIG Q24H SNOW Rx#:[id number] Oral 720 / 720 380 / 380 Other: # Voids 4 2 <Martin Malone L - 06/12/18 16:54> Vital Signs 06/11/18 12:00 06/11/18 16:00 06/11/18 20:00 Temperature 98.5 F 98.2 F 97.9 F Pulse Rate 75 71 89 Respiratory Rate 18 18 20 Blood Pressure 118/59 L 117/77 148/75 H Pulse Oximetry 96 97 97 06/11/18 20:15 06/12/18 00:00 06/12/18 01:35 Temperature 96 F L Pulse Rate 77 81 94 H Respiratory Rate 18 Blood Pressure 125/59 L Pulse Oximetry 97 06/12/18 04:00 06/12/18 08:00 Temperature 97.9 F 97.5 F L Pulse Rate 88 88 Respiratory Rate 20 16 Blood Pressure 165/95 H 159/89 H Pulse Oximetry 94 L 98 Intake & Output 06/11/18 06/12/18 06/12/18 18:59 06:59 18:59 Intake Total 1170 / 1170 580 / 580 Balance 1170 / 1170 580 / 580 Weight 101.1 kg Intake: IV 450 / 450 200 / 200 Zosyn 4.5 GM Premix 4.5 gm In 200 / 200 200 / 200 100 ml @ 200 mls/hr IV.SIG Q6H SNOW Rx#:[id number] Vancomycin Inj 1,000 MG In NS 250 / 250 Inj 250 ML @ 250 mls/hr IV.SIG Q24H SNOW Rx#:[id number] Oral 720 / 720 380 / 380 Other: # Voids 4 2 <Dav Whittington 06/12/18 09:59> - Constitutional no acute distress <Dav Whittington 06/12/18 09:59> - Routine HEENT Exam Head: Present: normocephalic, facial swelling (Left sided facial swelling ( parotid abscess) measured 4.5cm x5cm, mild erythema, outlined with surgical pen) <Dav Whittington 06/12/18 10:02> ENT: Present: mucous membranes moist, oropharynx clear, nares patent. Absent: septal deviation <Dav Whittington 06/12/18 10:02> Comments: Tender left sided lymphadenopathy <Dav Whittington 06/12/18 10:02> - Routine Neck Exam Present: supple, full ROM, lymphadenopathy. Absent: tracheal deviation < Dav Whittington 06/12/18 10:02> - Routine Respiratory Exam Present: CTA bilaterally. Absent: accessory muscle use <Dav Whittington 12/23 10:02> - Routine Cardiovascular Exam Present: RRR, S1, S2 <Dav Whittington 06/12/18 10:02> - Routine Abdominal Exam Present: soft, normoactive bowel sounds. Absent: tenderness, distended, rebound , guarding <Dav Whittington 06/12/18 11:52> - Routine Extremities Exam Present: pulses intact. Absent: edema, calf tenderness <Dav Whittington 12/23 11:52> - Routine Neurological Exam Present: alert, oriented X3. Absent: sensory deficit, altered mental status < Dav Whittington 06/12/18 11:52> - Routine Psychiatric Exam Present: cooperative. 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 Code(s): H54.3 - Unqualified visual loss, both eyes Status: Acute (5) Diabetes Code(s): E11.9 - Type 2 diabetes mellitus without complications Status: Acute (6) Hypertension Code(s): I10 - Essential (primary) hypertension Status: Acute (7) Hyperlipidemia Code(s): E78.5 - Hyperlipidemia, unspecified Status: Acute (8) Hypothyroidism Code(s): E03.9 - Hypothyroidism, unspecified Status: Acute (9) Nutrition, metabolism, and development symptoms Code(s): R63.8 - Other symptoms and signs concerning food and fluid intake Status: Acute <Martin Malone - 06/12/18 16:54> (1) Mass of parotid gland Code(s): K11.9 - Disease of salivary gland, unspecified Status: Acute Plan: Left parotid abscess based on CT findings, however has had several I&D with recurrence Head CT 05/25/18: 2.5 cm left facial abscess or necrotic mass in the anterior left parotid with surrounding edema or inflammatory change. Soft tissue neck CT 06/10/18: 2 cm thick-walled cystic mass or abscess in the left parotid gland with adjacent inflammatory change This morning patient's girlfriend reports that left facial swelling has increased Left facial swelling measured to be 4.5 cm x 5 cm this morning -Continue vancomycin -Continue Zosyn -ENT consulted, f/u recs; patient previously seen by Dr. Stoll Patient was seen by ENT yesterday (06/11) and needle aspiration of left parotid gland was done at bedside with minimal fluid collected. However no cultures or report has been noted in EMR (not sure if adequate specimen sample was collected). Will consult ID once cystic fluid has been collected for further evaluation of fluid and treatment . Plan to have patient undergo US guided full aspiration of cystic fluid by IR once INR is at goal of 2. INR 06/11 was 3.4 Warfarin on hold Trend INR blood cultures no growth times 2 days (2) A-fib Code(s): I48.91 - Unspecified atrial fibrillation Status: Acute Plan: Patient has history of atrial fibrillation (on Coumadin). EKG on admission showed atrial fibrillation that was not appreciated on physical exam. Patient is currently rate controlled. -hold home Coumadin pending INR goal of 2 for u/s guided aspiration procedure by IR (3) Glaucoma Code(s): H40.9 - Unspecified glaucoma Status: Acute Plan: Patient history significant for glaucoma in both eyes. Patient previously had surgery but is ultimately blind in both eyes. 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 Patient blind in both eyes. -Please use precaution as patient is visually impaired (5) Diabetes Code(s): E11.9 - Type 2 diabetes mellitus without complications Status: Acute Plan: Patient known type II diabetic on metformin, Lantus, and Empagliflozin. -Hold home medications -Patient received Lantus 40 units x 1 overnight due to elevated blood sugars will consider resuming Lantus while in the hospital at 40 units HS. 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 Patient normotensive on admission. -Continue home lisinopril, carvedilol, and furosemide -Patient with elevated BP this am 159/89, asymptomatic -continue to monitor VS -consider PRN medication for Bp > or = 180/100 (7) Hyperlipidemia Code(s): E78.5 - Hyperlipidemia, unspecified Status: Acute Plan: Patient has history of hyperlipidemia and has a cardiac history significant for quadruple bypass surgery as well as placement of stent -Continue home rosuvastatin (8) Hypothyroidism Code(s): E03.9 - Hypothyroidism, unspecified Status: Acute Plan: Patient suffers from hypothyroidism -Continue home levothyroxine 150 mcg (9) Nutrition, metabolism, and development symptoms Code(s): R63.8 - Other symptoms and signs concerning food and fluid intake Status: Acute Plan: Fluids: Not indicated at this time Electrolytes: Replete as needed Nutrition: Diabetic diet DVT prophylaxis: SCDs, Coumadin on hold <Dav Whittington - 06/12/18 11:29> - Attending Attestation The exam, history, and the medical decision-making described in the above note were completed with the assistance of the resident physician. I reviewed and agree with the findings presented. I attest that I had a [id number] encounter with the patient on the same day, and personally performed and documented my assessment and findings in the medical record. Patient with left parotitis versus abscess versus duct obstruction versus malignancy. Plan for IR guided drainage in the morning. Infectious disease on board. He will continue vancomycin/Zosyn for the time being, and specimen collected tomorrow will be sent for microscopy and pathology. <Martin Malone - 06/12/18 16:54> <Dav Whittington D - Last Filed: 06/12/18 11:29> (5) Diabetes Qualifiers: Diabetes mellitus type: type 2 Diabetes mellitus long chain beamer insulin use: without alf use Diabetes mellitus complication status: without complication Qualified Code(s): E11.9 - Type 2 diabetes mellitus without complications (6) Hypertension Qualifiers: Hypertension type: essential hypertension Qualified Code(s): I10 - Essential (primary) hypertension (7) Hyperlipidemia Qualifiers: Hyperlipidemia type: unspecified Qualified Code(s): E78.5 - Hyperlipidemia, unspecified <Martin Malone L - Last Filed: 06/12/18 16:54> (5) Diabetes Qualifiers: Diabetes mellitus type: type 2 Diabetes mellitus long chain beamer insulin use: without long chain beamer use Diabetes mellitus complication status: without complication Qualified Code(s): E11.9 - Type 2 diabetes mellitus without complications (6) Hypertension Qualifiers: Hypertension type: essential hypertension Qualified Code(s): I10 - Essential (primary) hypertension (7) Hyperlipidemia Qualifiers: Hyperlipidemia type: unspecified Qualified Code(s): E78.5 - Hyperlipidemia, unspecified <Dav Whittington D - Last Filed: 06/12/18 11:29> (5) Diabetes Qualifiers: Diabetes mellitus type: type 2 Diabetes mellitus long chain beamer insulin use: without alf use Diabetes mellitus complication status: without complication Qualified Code(s): E11.9 - Type 2 diabetes mellitus without complications (6) Hypertension Qualifiers: Hypertension type: essential hypertension Qualified Code(s): I10 - Essential (primary) hypertension (7) Hyperlipidemia Qualifiers: Hyperlipidemia type: unspecified Qualified Code(s): E78.5 - Hyperlipidemia, unspecified <Martin Maloen L - Last Filed: 06/12/18 16:54> (5) Diabetes Qualifiers: Diabetes mellitus type: type 2 Diabetes mellitus alf insulin use: without long chain beamer use Diabetes mellitus complication status: without complication Qualified Code(s): E11.9 - Type 2 diabetes mellitus without complications (6) Hypertension Qualifiers: Hypertension type: essential hypertension Qualified Code(s): I10 - Essential (primary) hypertension (7) Hyperlipidemia Qualifiers: Hyperlipidemia type: unspecified Qualified Code(s): E78.5 - Hyperlipidemia, unspecified
[2018-06-12 13:27] LABS: Prothrombin Time 19.9 sec (9.8-11.6)
--- NOTE | 2018-06-12 15:36 | P.CONID ---
History of Present Illness Service: Infectious Disease Consult date: 06/12/18 Requesting Physician: Dav Whittington Reason for Consult: Evaluation and Mment of Parotid abscess/swelling Primary Care Provider: UNKNOWN History of Present Illness: Mr. 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 Patient is now being admitted for a 4-week history of enlarged mass in the left cheek. Upon further clarification patient reports that approximately 5 weeks prior to admission he went camping and upon awakening he noticed a great size hard mass on his left cheek. At that time there were no signs of infection and he attributed this to a tick or a spider bite in that area. Since then the masses continue to grow in size and has now hardened in several places. Initially it was red in some places and he was prescribed antibiotics while in the hospital for another reason with IV vancomycin and Flagyl. He was thereafter discharged on an outpatient course of Keflex and clindamycin with no improvement in symptoms. Patient goes on to report that approximately the 2 weeks prior to admission he had an outpatient biopsy of the parotid area and was told that it he may not have cancer but that was a very superficial tissue. Thereafter patient had another attempt at biopsy and it appears the tissue was lost. But he also goes on to report that the fluid obtained at that time was pink to yellow in color. Patient now reports that the swelling is now increasing in size and is now just below his jaw. Patient also reports intermittent fevers as high as 102. He has experienced a dull ache in his left eye that is intermittent and resolves on its own. Patient reports pain on opening his mouth all the way and active chewing bothers him as well. He denies any dysphagia or odynophagia but does experience numbness in his throat at times. He is denies any change in his voice. He denies any dental problems he does have partial dentures. He reports having taken some lozenges as well as antibiotics both of which did not result in any change in the size or shape of this lesion. He reports his vision is at baseline although it has progressively been worsening for the last several years. At the present time his left eye is the better of the 2 eyes and he can appreciate shadows only. In the right eye he has no vision at all. Infectious diseases consulted for evaluation and management of possible infectious causes of parotid gland enlargement such as parotitis. Upon discussion with the patient and the primary team it appears that there is a plan for ultrasound-guided biopsy. 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 Meds: Warfarin, probiotics, florastor, metformin, lisinopril, carvedilol, prednisolone, nitroglycerin, carteolol, glargine, rosuvastatin, and empagliflozin, furosemide, levothyroxine Surgical Hx: Glaucoma surgery in 2015, cholecystectomy 2013, quadruple bypass surgery and , stent in 2009 FHx: Dad passed from [place] and DM at 69, Mom passed in her 70s unknown cause Social: [place] 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 3 children alive and healthy, oldest son 54 years old. 15 pack year quict at 34 yars old. 2-3 beers a month PMFSH - History History Provided By: Patient - Medical History Medical History: Medical History (Last Reviewed 06/10/18 @ 20:38 by Malu Hernandez RN) Afib Blind Blockage of kidney vein Diabetes Hyperlipidemia Hypertension Hypothyroidism Kidney carcinoma Renal artery stenosis - Surgical History Surgical History: Surgical History (Last Reviewed 06/10/18 @ 20:39 by Malu Hernandez RN) History of cholecystectomy S/P CABG x 2 - Family History Family History: Family History (Last Reviewed 06/06/18 @ 15:05 by Jorge Gant MD) Other Coronary artery disease - Tobacco History Second Hand Smoke Exposure: Yes Tobacco Use In Past 30 Days: Yes Smoking Status: Former smoker Tobacco Type: Cigarettes - Alcohol History How Often Do You Have a Drink Containing Alcohol: 2 to 4 times a month - Substance Use History Substance History: No History of Abuse - Travel History Recent Travel in the [place] Within the Last 8 Weeks: No Recent Travel Out of the Country Within the Last 8 Weeks: No - Immunization History Tetanus Immunization: <5 Years Hx Influenza Vaccine This Season: Yes Medications and Allergies Active Medications: Active Medications Acetaminophen (Tylenol) 650 mg PO Q4H PRN PRN Reason: Temp > 100.4 Last Admin: 06/11/18 13:53 Dose: 650 mg Hydrocodone Bitart/Acetaminophen ([place] 5/325) 1 tab PO Q4H PRN PRN Reason: PAIN SCALE 3 TO 5 Hydrocodone Bitart/Acetaminophen ([place] 7.5/325) 1 tab PO Q4H PRN PRN Reason: PAIN SCALE 6 TO 10 Last Admin: 06/12/18 12:47 Dose: 1 tab Al Hydroxide/Mg Hydroxide (Milk Of Magnesia Liq) 30 ml PO Q12H PRN PRN Reason: Mild Constipation Atorvastatin Calcium (Lipitor) 80 mg PO DAILY [facility] Last Admin: 06/12/18 08:32 Dose: 80 mg Bisacodyl (Dulcolax Supp) 10 mg RECTAL DAILY PRN PRN Reason: SEVERE CONSITIPATION Carvedilol (Coreg) 25 mg PO BID [facility] Last Admin: 06/12/18 08:32 Dose: 25 mg Dextrose (D50w Vial) 50 ml IV.PUSH UNSCH PRN PRN Reason: PER HYPOGLYCEMIA PROTOCOL Furosemide (Lasix) 20 mg PO DAILY [facility] Last Admin: 06/12/18 08:32 Dose: 20 mg Glucagon (Glucagon Inj) 1 mg OTHER UNSCH PRN PRN Reason: for Hypoglycemia Protocol Vancomycin HCl 1,000 mg/ (Sodium Chloride) 250 mls @ 250 mls/hr IV.SIG Q24H [facility] Last Infusion: 06/11/18 18:54 Dose: Infused Piperacillin/Tazobactam/Dextrose (Zosyn 4.5 Gm Premix) 4.5 gm in 100 mls @ 200 mls/hr IV.SIG Q6H [facility] Last Infusion: 06/12/18 12:20 Dose: Infused Insulin Aspart (Novolog Insulin Correctional Sugar Inj) 0 unit SQ ACHS [facility]; Protocol Last Admin: 06/12/18 11:46 Dose: 5 unit Insulin Detemir (Levemir Inj) 40 unit SQ HS [facility] Lactulose (Lactulose Liq) 30 ml PO DAILY PRN PRN Reason: SEVERE CONSITIPATION Levothyroxine Sodium (Synthroid) 150 mcg PO 0600 [facility] Last Admin: 06/12/18 05:13 Dose: 150 mcg Lisinopril (Prinivil) 40 mg PO DAILY [facility] Last Admin: 06/12/18 08:32 Dose: 40 mg Morphine Sulfate (Morphine Inj) 4 mg IV.PUSH Q3H PRN PRN Reason: BREAKTHROUGH PAIN Naloxone HCl (Narcan Inj) 0.4 mg IV.PUSH UNSCH PRN PRN Reason: SEE LABEL COMMENTS Pom:(Carteolol [ (Carteolol] 1 Drp)) 0 each LEFT EYE BID [facility] Last Admin: 06/12/18 08:32 Dose: 1 each Prednisolone Acetate (Pred Forte 1% Opth Susp) 1 drop RIGHT EYE TID [facility] Last Admin: 06/12/18 12:59 Dose: 1 drop Sennosides (Senokot) 17.2 mg PO Q12H PRN PRN Reason: Moderate Constipation Warfarin Sodium (Coumadin) 5 mg PO [id number] [facility] Allergies Allergy/AdvReac Type Severity Reaction Status Date / Time Sulfa (Sulfonamide Allergy Mild unknown Verified 06/10/18 10:52 Antibiotics) Home Medications Medication Instructions Recorded Confirmed Type Saccharomyces boulardii [Florastor] 250 mg PO DAILY 05/25/18 06/10/18 History carvedilol 25 mg PO BID 05/25/18 06/10/18 History lisinopril 40 mg PO DAILY 05/25/18 06/10/18 History metformin 500 mg PO BID 05/25/18 06/10/18 History warfarin 5 mg PO DIRECTED 05/25/18 06/10/18 History carteolol 1 drp LEFT EYE BID 05/26/18 06/10/18 History empagliflozin [Jardiance] 12.5 mg PO QAM 05/26/18 06/10/18 History furosemide 20 mg PO DAILY 05/26/18 06/10/18 History insulin glargine [Lantus U-100 60 unit SUBCUT HS 05/26/18 06/10/18 History Insulin] levothyroxine 150 mcg PO 0600 05/26/18 06/10/18 History nitroglycerin 0.4 mg SUBLINGUAL Q5-15M PRN 05/26/18 06/10/18 History prednisolone acetate 1 drp RIGHT EYE TID 05/26/18 06/10/18 History rosuvastatin 40 mg PO DAILY 05/26/18 06/10/18 History warfarin 7.5 mg PO 3XW 06/10/18 06/10/18 History Exam Vital signs: Vital Signs 06/11/18 16:00 06/11/18 20:00 06/11/18 20:15 Temperature 98.2 F 97.9 F Pulse Rate 71 89 77 Respiratory Rate 18 20 Blood Pressure 117/77 148/75 H Pulse Oximetry 97 97 06/12/18 00:00 06/12/18 01:35 06/12/18 04:00 Temperature 96 F L 97.9 F Pulse Rate 81 94 H 88 Respiratory Rate 18 20 Blood Pressure 125/59 L 165/95 H Pulse Oximetry 97 94 L 06/12/18 08:00 06/12/18 09:00 06/12/18 12:00 Temperature 97.5 F L 98.1 F Pulse Rate 88 77 72 Respiratory Rate 16 16 Blood Pressure 159/89 H 111/60 Pulse Oximetry 98 96 Intake & Output 06/11/18 06/12/18 06/12/18 18:59 06:59 18:59 Intake Total 1170 / 1170 580 / 580 100 / 100 Balance 1170 / 1170 580 / 580 100 / 100 Weight 101.1 kg Intake: IV 450 / 450 200 / 200 100 / 100 Zosyn 4.5 GM Premix 4.5 gm In 200 / 200 200 / 200 100 / 100 100 ml @ 200 mls/hr IV.SIG Q6H [facility] Rx#:[id number] Vancomycin Inj 1,000 MG In NS 250 / 250 Inj 250 ML @ 250 mls/hr IV.SIG Q24H [facility] Rx#:[id number] Oral 720 / 720 380 / 380 Other: # Voids 4 2 Narrative: GENERAL: Well-nourished well-developed, not in acute distress SKIN: Cool and dry, no generalized rash HEAD: Atraumatic. Normocephalic. No temporal or scalp tenderness. EYES: Pupils equal round and reactive. Scleral icterus. No injection or drainage. No petechia ENT: Left parotid area swelling noted, non ballotable on bimanual exam. No dental lesions noted. Uvula central with no tonsillar masses. No change in voice noted. Left parotid swelling with hardness noted, no secretions or purulence on pressing the parotid gland. No LNpathy. NECK: Trachea midline. Supple, nontender, no meningeal signs. CARDIOVASCULAR: HS audible. RESPIRATORY: Clear to auscultation bilaterally. GASTROINTESTINAL: Abdomen soft nontender. MUSCULOSKELETAL: Extremities without clubbing, cyanosis. NEUROLOGICAL: Alert oriented 3. Nonfocal. Psych cooperative IV line sites ok. Results - Labs CBC & Chem 7: 06/12/18 06:45 06/12/18 06:45 Labs: Laboratory Results - last 24 hr 06/11/18 06/11/18 06/12/18 16:26 20:54 06:45 WBC 3.8 L RBC 4.71 Hgb 12.1 L Hct 36.8 L MCV 78.1 L MCH 25.7 L MCHC 32.9 RDW 18.8 H Plt Count 141 L MPV 8.4 Neut % (Auto) 73.9 H Lymph % (Auto) 16.5 [place] % (Auto) 8.6 H Eos % (Auto) 0.7 Baso % (Auto) 0.3 Neut # (Auto) 2.8 Lymph # (Auto) 0.6 L [place] # (Auto) 0.3 Eos # (Auto) 0.0 Baso # (Auto) 0.0 WBC Differential . Differential Comment Auto diff final PT INR Sodium Potassium Chloride Carbon Dioxide Anion Gap BUN Creatinine Estimated GFR POC Glucose 268 H 397 H Random Glucose Calcium Total Bilirubin AST ALT Alkaline Phosphatase Total Protein Albumin 06/12/18 06/12/18 06/12/18 06:45 07:52 11:29 WBC RBC Hgb Hct MCV MCH MCHC RDW Plt Count MPV Neut % (Auto) Lymph % (Auto) [place] % (Auto) Eos % (Auto) Baso % (Auto) Neut # (Auto) Lymph # (Auto) [place] # (Auto) Eos # (Auto) Baso # (Auto) WBC Differential Differential Comment PT INR Sodium 137 Potassium 4.0 Chloride 104 Carbon Dioxide 24.6 Anion Gap 8 BUN 16 Creatinine 1.69 H Estimated GFR 39 L POC Glucose 315 H 296 H Random Glucose 321 H D Calcium 8.4 L Total Bilirubin 0.5 AST 25 ALT 25 Alkaline Phosphatase 80 Total Protein 6.4 Albumin 3.1 L 06/12/18 12:57 WBC RBC Hgb Hct MCV MCH MCHC RDW Plt Count MPV Neut % (Auto) Lymph % (Auto) [place] % (Auto) Eos % (Auto) Baso % (Auto) Neut # (Auto) Lymph # (Auto) [place] # (Auto) Eos # (Auto) Baso # (Auto) WBC Differential Differential Comment PT 19.9 H D INR 2.0 Sodium Potassium Chloride Carbon Dioxide Anion Gap BUN Creatinine Estimated GFR POC Glucose Random Glucose Calcium Total Bilirubin AST ALT Alkaline Phosphatase Total Protein Albumin - Imaging Chest X-Ray 06/10/18 11:03 CONCLUSION: Cardiac silhouette enlargement. Lungs clear. Soft Tissue Neck CT 06/10/18 11:03 CONCLUSION: 1. 2 cm thick-walled cystic mass or abscess in the left parotid gland with adjacent inflammatory change. 2. Severe degenerative findings of the cervical spine. Assessment and Plan - Plan Parotid gland mass possible parotitis of infectious etiology versus underlying cancer. Status post multiple courses of IV as well as oral antibiotics. Renal cell carcinoma under observation with no chemoradiation therapy so far. Recs: Continue Zosyn IV for now will deescalate in am further to Unasyn DC Vanco IV MRSA is not typical organism for parotitis. Follow cultures Follow clinical course. henny Fuentes would like to get both micro and pathology specimens of parotid tissue. Will follow along.
[2018-06-12] MEDS ORDERED: Acetaminophen 325 MG Tablet PO PRN (16:45)
[2018-06-12] MEDS ORDERED: Acetaminophen 325 MG Tablet PO SCH (16:45)
[2018-06-12] MEDS: Vancomycin Inj 1,000 MG in Sodium Chlor 0.9% Inj 250 ML IV.SIG SCH (17:23)
[2018-06-12] MEDS ORDERED: Insulin Detemir Inj 1,000 UNIT/10 ML Vial SQ SCH (21:00)
[2018-06-13] MEDS: Piperacil/Tazo 4.5 GM Premix 4.5 GM/100 ML BAG IV.SIG SCH ×4 (01:02→17:54)
[2018-06-13] MEDS: Levothyroxine 150 MCG Tablet PO SCH (05:17)
[2018-06-13 06:31] LABS: Baso % (Auto) 0.5 % (0.0-2.0); Hemoglobin 11.7 gm/dL (13.0-17.0); Lymph # (Auto) 0.6 th/mm3 (1.0-4.8); Lymph % (Auto) 16.6 % (9.0-44.0); Mean Corpuscular HGB Conc 32.6 % (32.0-36.0); Mean Corpuscular Hemoglobin 25.1 pg (27.0-34.0); Mean Corpuscular Volume 77.2 fL (80.0-100.0); Mean Platelet Volume 8.4 fL (7.0-11.0); Mono # (Auto) 0.3 th/mm3 (0.0-0.9); Mono % (Auto) 8.5 % (0.0-8.0); Neut # (Auto) 2.7 th/mm3 (1.8-7.7); Neut % (Auto) 73.4 % (16.0-70.0); Platelet Count 127 th/mm3 (150-450); Red Blood Count 4.67 mil/mm3 (4.50-5.90); Red Cell Distribution Width 18.6 % (11.6-17.2); White Blood Count 3.7 th/mm3 (4.0-11.0)
[2018-06-13 06:43] LABS: INR 1.6 Ratio; Prothrombin Time 16.5 sec (9.8-11.6)
[2018-06-13 06:50] LABS: Anion Gap 6 meq/L (5-15); Aspartate Aminotransferase 21 U/L (15-37); Blood Urea Nitrogen 17 mg/dL (7-18); Chloride 105 meq/L (98-107); Glomerular Filtration Rate 42 mL/min (>89); Glucose,Random 252 mg/dL (74-106); Potassium 4.3 meq/L (3.5-5.1); Sodium 137 meq/L (136-145)
[2018-06-13 06:51] LABS: Alanine Aminotransferase 24 U/L (12-78)
[2018-06-13 06:53] LABS: Alkaline Phosphatase 61 U/L (45-117); Total Protein 6.2 g/dL (6.4-8.2)
[2018-06-13] MEDS: Lisinopril 20 MG Tablet PO SCH (10:01)
[2018-06-13] MEDS: Furosemide 20 MG Tablet PO SCH (10:01)
[2018-06-13] MEDS: Carvedilol 12.5 MG Tablet PO SCH ×2 (10:01→21:35)
[2018-06-13] MEDS: prednisoLONE Acetate 1% Opth Susp 5 ML Bottle RIGHT EYE SCH ×3 (10:05→18:01)
[2018-06-13] MEDS: [UNRECOGNIZED DRUG - OTHER] LEFT EYE SCH ×2 (10:06→21:35)
[2018-06-13] MEDS: Insulin NovoLOG Aspart Correctional Sugar Inj SQ SCH ×4 (10:06→21:34)
--- NOTE | 2018-06-13 11:17 | P.PNFP ---
Subjective Interval history: Correction: parotid abscess, not carotid abscess <Martin Malone L - 06/13/18 19:14> Patient seen and examined at bedside by family medicine team. No acute events overnight. Patient had just returned back from IR ultrasound-guided procedures for aspiration of left carotid abscess. Patient reports that he had a lot of pain during the procedure and was not able to tolerate full aspiration. He denies any difficulties breathing, fever, chills, difficulties eating or tolerating his secretions. Pain is manageable. <Dav Whittington D - 06/13/18 11:58> Results - Labs Result diagrams: 06/13/18 03:50 06/13/18 05:50 <Martin Malone Dangelo - 06/13/18 19:14> Abnormal lab results 06/12/18 06/13/18 06/13/18 Range/Units 19:53 03:50 05:50 WBC 3.7 L (4.0-11.0) th/mm3 Hgb 11.7 L (13.0-17.0) gm/dL Hct 36.0 L (39.0-51.0) % MCV 77.2 L (80.0-100.0) fL MCH 25.1 L (27.0-34.0) pg RDW 18.6 H (11.6-17.2) % Plt Count 127 L (150-450) th/mm3 Neut % (Auto) 73.4 H (16.0-70.0) % Garden % (Auto) 8.5 H (0.0-8.0) % Lymph # (Auto) 0.6 L (1.0-4.8) th/mm3 PT 16.5 H (9.8-11.6) sec Creatinine (0.60-1.30) mg/dL Estimated GFR (>89) mL/min POC Glucose 323 H (68-110) mg/dl Random Glucose (74-106) mg/dL Calcium (8.5-10.1) mg/dL Total Protein (6.4-8.2) g/dL Albumin (3.4-5.0) g/dL 06/13/18 06/13/18 06/13/18 Range/Units 05:50 12:17 15:47 WBC (4.0-11.0) th/mm3 Hgb (13.0-17.0) gm/dL Hct (39.0-51.0) % MCV (80.0-100.0) fL MCH (27.0-34.0) pg RDW (11.6-17.2) % Plt Count (150-450) th/mm3 Neut % (Auto) (16.0-70.0) % Garden % (Auto) (0.0-8.0) % Lymph # (Auto) (1.0-4.8) th/mm3 PT (9.8-11.6) sec Creatinine 1.61 H (0.60-1.30) mg/dL Estimated GFR 42 L (>89) mL/min POC Glucose 298 H 362 H (68-110) mg/dl Random Glucose 252 H (74-106) mg/dL Calcium 8.0 L (8.5-10.1) mg/dL Total Protein 6.2 L (6.4-8.2) g/dL Albumin 3.0 L (3.4-5.0) g/dL Short CBC 06/13/18 Range/Units 03:50 WBC 3.7 L (4.0-11.0) th/mm3 Hgb 11.7 L (13.0-17.0) gm/dL Hct 36.0 L (39.0-51.0) % Plt Count 127 L (150-450) th/mm3 BMP 06/13/18 05:50 Sodium 137 Potassium 4.3 Chloride 105 Carbon Dioxide 26.0 BUN 17 Creatinine 1.61 H Calcium 8.0 L Liver Function 06/13/18 Range/Units 05:50 Total Bilirubin 0.5 (0.2-1.0) mg/dL AST 21 (15-37) U/L ALT 24 (12-78) U/L Alkaline Phosphatase 61 (45-117) U/L Albumin 3.0 L (3.4-5.0) g/dL <Martin Malone L - 06/13/18 19:14> Abnormal lab results 06/12/18 06/12/18 06/12/18 Range/Units 11:29 12:57 16:17 WBC (4.0-11.0) th/mm3 Hgb (13.0-17.0) gm/dL Hct (39.0-51.0) % MCV (80.0-100.0) fL MCH (27.0-34.0) pg RDW (11.6-17.2) % Plt Count (150-450) th/mm3 Neut % (Auto) (16.0-70.0) % Garden % (Auto) (0.0-8.0) % Lymph # (Auto) (1.0-4.8) th/mm3 PT 19.9 H D (9.8-11.6) sec Creatinine (0.60-1.30) mg/dL Estimated GFR (>89) mL/min POC Glucose 296 H 250 H (68-110) mg/dl Random Glucose (74-106) mg/dL Calcium (8.5-10.1) mg/dL Total Protein (6.4-8.2) g/dL Albumin (3.4-5.0) g/dL 06/12/18 06/13/18 06/13/18 Range/Units 19:53 03:50 05:50 WBC 3.7 L (4.0-11.0) th/mm3 Hgb 11.7 L (13.0-17.0) gm/dL Hct 36.0 L (39.0-51.0) % MCV 77.2 L (80.0-100.0) fL MCH 25.1 L (27.0-34.0) pg RDW 18.6 H (11.6-17.2) % Plt Count 127 L (150-450) th/mm3 Neut % (Auto) 73.4 H (16.0-70.0) % Garden % (Auto) 8.5 H (0.0-8.0) % Lymph # (Auto) 0.6 L (1.0-4.8) th/mm3 PT 16.5 H (9.8-11.6) sec Creatinine (0.60-1.30) mg/dL Estimated GFR (>89) mL/min POC Glucose 323 H (68-110) mg/dl Random Glucose (74-106) mg/dL Calcium (8.5-10.1) mg/dL Total Protein (6.4-8.2) g/dL Albumin (3.4-5.0) g/dL 06/13/18 Range/Units 05:50 WBC (4.0-11.0) th/mm3 Hgb (13.0-17.0) gm/dL Hct (39.0-51.0) % MCV (80.0-100.0) fL MCH (27.0-34.0) pg RDW (11.6-17.2) % Plt Count (150-450) th/mm3 Neut % (Auto) (16.0-70.0) % Garden % (Auto) (0.0-8.0) % Lymph # (Auto) (1.0-4.8) th/mm3 PT (9.8-11.6) sec Creatinine 1.61 H (0.60-1.30) mg/dL Estimated GFR 42 L (>89) mL/min POC Glucose (68-110) mg/dl Random Glucose 252 H (74-106) mg/dL Calcium 8.0 L (8.5-10.1) mg/dL Total Protein 6.2 L (6.4-8.2) g/dL Albumin 3.0 L (3.4-5.0) g/dL Short CBC 06/13/18 Range/Units 03:50 WBC 3.7 L (4.0-11.0) th/mm3 Hgb 11.7 L (13.0-17.0) gm/dL Hct 36.0 L (39.0-51.0) % Plt Count 127 L (150-450) th/mm3 BMP 06/13/18 05:50 Sodium 137 Potassium 4.3 Chloride 105 Carbon Dioxide 26.0 BUN 17 Creatinine 1.61 H Calcium 8.0 L Liver Function 06/13/18 Range/Units 05:50 Total Bilirubin 0.5 (0.2-1.0) mg/dL AST 21 (15-37) U/L ALT 24 (12-78) U/L Alkaline Phosphatase 61 (45-117) U/L Albumin 3.0 L (3.4-5.0) g/dL <Dav Whittington - 06/13/18 11:17> - Imaging Impressions Needle Aspiration US 06/13/18 00:00 CONCLUSION: 1. Ultrasound-guided aspiration of left periparotid complex cystic lesion yielding approximately 5 cc of bloody fluid. Procedure was terminated secondary to patient's symptoms with approximately an additional 5 cc of residual volume. <Martin Malone - 06/13/18 19:14> Physical Exam Vital signs: Vital Signs 06/12/18 20:00 06/12/18 22:01 06/13/18 00:00 Temperature 97.8 F 97.6 F Pulse Rate 73 73 Respiratory Rate 20 16 19 Blood Pressure 143/78 H 125/78 Pulse Oximetry 97 98 06/13/18 04:00 06/13/18 09:00 06/13/18 09:03 Temperature 97.6 F 98.0 F Pulse Rate 72 75 83 Respiratory Rate 20 16 Blood Pressure 118/72 153/87 H Pulse Oximetry 98 95 06/13/18 09:15 06/13/18 12:00 06/13/18 16:00 Temperature 98.0 F 98.3 F 98.1 F Pulse Rate 81 77 91 H Respiratory Rate 16 16 17 Blood Pressure 157/82 H 143/77 H 159/83 H Pulse Oximetry 95 98 98 Intake & Output 06/13/18 06/13/18 06/14/18 06:59 18:59 06:59 Intake Total 200 / 200 100 / 100 Output Total 1000 / 1000 Balance 200 / 200 -900 / -900 Weight 102.7 kg Intake: IV 200 / 200 100 / 100 Zosyn 4.5 GM Premix 4.5 gm In 200 / 200 100 / 100 100 ml @ 200 mls/hr IV.SIG Q6H SNOW Rx#:[id number] Oral 0 / 0 Output: Urine 1000 / 1000 Other: # Voids 2 3 <Martin Malone L - 06/13/18 19:14> Vital Signs 06/12/18 12:00 06/12/18 16:00 06/12/18 20:00 Temperature 98.1 F 98 F 97.8 F Pulse Rate 72 76 73 Respiratory Rate 16 16 20 Blood Pressure 111/60 109/64 143/78 H Pulse Oximetry 96 96 97 06/12/18 22:01 06/13/18 00:00 06/13/18 04:00 Temperature 97.6 F 97.6 F Pulse Rate 73 72 Respiratory Rate 16 19 20 Blood Pressure 125/78 118/72 Pulse Oximetry 98 98 06/13/18 09:03 06/13/18 09:15 Temperature 98.0 F 98.0 F Pulse Rate 83 81 Respiratory Rate 16 16 Blood Pressure 153/87 H 157/82 H Pulse Oximetry 95 95 Intake & Output 06/12/18 06/13/18 06/13/18 18:59 06:59 18:59 Intake Total 1610 / 1610 200 / 200 Output Total 1110 / 1110 Balance 500 / 500 200 / 200 Weight 102.7 kg Intake: IV 450 / 450 200 / 200 Zosyn 4.5 GM Premix 4.5 gm In 200 / 200 200 / 200 100 ml @ 200 mls/hr IV.SIG Q6H SNOW Rx#:[id number] Vancomycin Inj 1,000 MG In NS 250 / 250 Inj 250 ML @ 250 mls/hr IV.SIG Q24H SNOW Rx#:[id number] Oral 1160 / 1160 0 / 0 Output: Urine 1110 / 1110 Other: # Voids 2 # Bowel Movements 0 <Dav Whittington D - 06/13/18 11:17> - Constitutional no acute distress <Dav Whittington 06/13/18 11:58> - Routine HEENT Exam Head: Present: normocephalic <Dav Whittington 06/13/18 11:58> Eye: Present: EOMI, PERRL. Absent: periorbital swelling, nystagmus <Dav Whittington 06/13/18 11:58> ENT: Present: mucous membranes moist, oropharynx clear. Absent: septal deviation <Dav Whittington 06/13/18 11:58> Comments: (Left sided facial swelling (parotid abscess) measured 4.5cm x5cm, mild erythema , outlined with surgical pen), stable from yesterday. <Dav Whittington - 06/13/18 11:58> - Routine Neck Exam Present: supple, full ROM, lymphadenopathy (Tender lymphadenopathy) <Dav Whittington D - 06/13/18 11:58> - Routine Respiratory Exam Present: CTA bilaterally. Absent: accessory muscle use <Dav Whittington - 01/23 11:58> - Routine Cardiovascular Exam Present: RRR, S1, S2 <Dav Whittington 06/13/18 11:58> - Routine Abdominal Exam Present: soft. Absent: tenderness <Dav Whittington - 06/13/18 11:58> - Routine Extremities Exam Present: pulses intact. 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 Code(s): H54.3 - Unqualified visual loss, both eyes Status: Acute (5) Diabetes Code(s): E11.9 - Type 2 diabetes mellitus without complications Status: Acute (6) Hypertension Code(s): I10 - Essential (primary) hypertension Status: Acute (7) Hyperlipidemia Code(s): E78.5 - Hyperlipidemia, unspecified Status: Acute (8) Hypothyroidism Code(s): E03.9 - Hypothyroidism, unspecified Status: Acute (9) Nutrition, metabolism, and development symptoms Code(s): R63.8 - Other symptoms and signs concerning food and fluid intake Status: Acute <Martin Malone - 06/13/18 19:14> (1) Mass of parotid gland Code(s): K11.9 - Disease of salivary gland, unspecified Status: Acute Plan: Left parotid abscess based on CT findings, however has had several I&D with recurrence Head CT 05/25/18: 2.5 cm left facial abscess or necrotic mass in the anterior left parotid with surrounding edema or inflammatory change. Soft tissue neck CT 06/10/18: 2 cm thick-walled cystic mass or abscess in the left parotid gland with adjacent inflammatory change left facial swelling appears stable Left facial swelling measured to be 4.5 cm x 5 cm yesterday Blood cultures no growth times 3 days -ENT consulted, f/u recs; patient previously seen by Dr. Stoll Recommended ID consult for further evaluation of fluid and treatment. -Discontinue vancomycin and start patient on IV Zosyn with plan to transition to Unasyn. Pt s/p US guided full aspiration of cystic fluid by IR today (06/13). f/u cystic fluid studies results INR 06/11 was 3.4, 06/12 was 2, and 06/13 was 1.6 Warfarin on hold Will touch base with IR to coordinate when warfarin can be resumed after procedure. (2) A-fib Code(s): I48.91 - Unspecified atrial fibrillation Status: Acute Plan: Patient has history of atrial fibrillation (on Coumadin). EKG on admission showed atrial fibrillation that was not appreciated on physical exam. Patient is currently rate controlled. - home Coumadin on hold s/p u/s guided aspiration procedure by IR (3) Glaucoma Code(s): H40.9 - Unspecified glaucoma Status: Acute Plan: Patient history significant for glaucoma in both eyes. Patient previously had surgery but is ultimately blind in both eyes. 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 Patient blind in both eyes. -Please use precaution as patient is visually impaired (5) Diabetes Code(s): E11.9 - Type 2 diabetes mellitus without complications Status: Acute Plan: Patient known type II diabetic on metformin, Lantus, and Empagliflozin. -Hold home medications -Patient continue with elevated blood sugars above 200s -We will adjust Levemir to 25 units twice daily starting tonight. 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 Patient normotensive on admission. -Continue home lisinopril, carvedilol, and furosemide -Patient with elevated BP this am 150s/87, asymptomatic -continue to monitor VS -consider PRN medication for Bp > or = 180/100 (7) Hyperlipidemia Code(s): E78.5 - Hyperlipidemia, unspecified Status: Acute Plan: Patient has history of hyperlipidemia and has a cardiac history significant for quadruple bypass surgery as well as placement of stent -Continue home rosuvastatin (8) Hypothyroidism Code(s): E03.9 - Hypothyroidism, unspecified Status: Acute Plan: Patient suffers from hypothyroidism -Continue home levothyroxine 150 mcg (9) Nutrition, metabolism, and development symptoms Code(s): R63.8 - Other symptoms and signs concerning food and fluid intake Status: Acute Plan: Fluids: Not indicated at this time Electrolytes: Replete as needed Nutrition: Diabetic diet DVT prophylaxis: SCDs, Coumadin on hold <Dav Whittington - 06/13/18 11:39> - Attending Attestation The exam, history, and the medical decision-making described in the above note were completed with the assistance of the resident physician. I reviewed and agree with the findings presented. I attest that I had a [id number] encounter with the patient on the same day, and personally performed and documented my assessment and findings in the medical record. Awaiting pathology and microbiology results for parotid aspirate. <Martin Malone - 06/13/18 19:14> <Dav Whittington D - Last Filed: 06/13/18 11:39> (5) Diabetes Qualifiers: Diabetes mellitus type: type 2 Diabetes mellitus mcc insulin use: without roasterman use Diabetes mellitus complication status: without complication Qualified Code(s): E11.9 - Type 2 diabetes mellitus without complications (6) Hypertension Qualifiers: Hypertension type: essential hypertension Qualified Code(s): I10 - Essential (primary) hypertension (7) Hyperlipidemia Qualifiers: Hyperlipidemia type: unspecified Qualified Code(s): E78.5 - Hyperlipidemia, unspecified <Martin Malone - Last Filed: 06/13/18 19:14> (5) Diabetes Qualifiers: Diabetes mellitus type: type 2 Diabetes mellitus roasterman insulin use: without mcc use Diabetes mellitus complication status: without complication Qualified Code(s): E11.9 - Type 2 diabetes mellitus without complications (6) Hypertension Qualifiers: Hypertension type: essential hypertension Qualified Code(s): I10 - Essential (primary) hypertension (7) Hyperlipidemia Qualifiers: Hyperlipidemia type: unspecified Qualified Code(s): E78.5 - Hyperlipidemia, unspecified <Dav Whittington D - Last Filed: 06/13/18 11:39> (5) Diabetes Qualifiers: Diabetes mellitus type: type 2 Diabetes mellitus roasterman insulin use: without mcc use Diabetes mellitus complication status: without complication Qualified Code(s): E11.9 - Type 2 diabetes mellitus without complications (6) Hypertension Qualifiers: Hypertension type: essential hypertension Qualified Code(s): I10 - Essential (primary) hypertension (7) Hyperlipidemia Qualifiers: Hyperlipidemia type: unspecified Qualified Code(s): E78.5 - Hyperlipidemia, unspecified <Martin Malone - Last Filed: 06/13/18 19:14> (5) Diabetes Qualifiers: Diabetes mellitus type: type 2 Diabetes mellitus mcc insulin use: without roasterman use Diabetes mellitus complication status: without complication Qualified Code(s): E11.9 - Type 2 diabetes mellitus without complications (6) Hypertension Qualifiers: Hypertension type: essential hypertension Qualified Code(s): I10 - Essential (primary) hypertension (7) Hyperlipidemia Qualifiers: Hyperlipidemia type: unspecified Qualified Code(s): E78.5 - Hyperlipidemia, unspecified
--- NOTE | 2018-06-13 15:27 | US ---
EXAM DATE: 06/13/2018 10:13 AM EST AGE/SEX: 78 years / Male INDICATIONS: Fluid collection, left parotid. CLINICAL DATA: This is the patient's initial encounter. Patient reports that signs and symptoms have been present for 1 week and indicates a pain score of 5/10. MEDICAL/SURGICAL HISTORY: Hypertension. Hypothyroidism. Atrial fibrillation. Blind. Diabetes. Hyperlipidemia. Kidney carcinoma. Renal artery stenosis. Cholecystectomy. CABG. COMPARISON: No prior exams available for comparison. FLUID: Total volume of 5 cc of cloudy, red bloody fluid was removed. Fluid was sent to lab for ordered studi es. Post procedure scanning reveals no hematoma or other complication. . . TECHNIQUE: Ultrasound guidance for needle aspiration. Aspiration. The risks, benefits and alternatives to the procedure were explained and verbal and written consent w as obtained. The site was prepped in sterile fashion. Full sterile technique was used, including ca p, mask, sterile gloves and gown and a large sterile sheet. Hand hygiene and 2% chlorhexidine and/or betadine/alcohol prep was utilized per protocol for cutaneous antisepsis. The skin and subcutaneous tissues were infiltrated with local anesthetic solution. Sterile gel and sterile probe cover were u tilized for ultrasound guidance. Ultrasound examination of the left parotid region was performed confirming a 3.6 cm complex hypoechoi c cystic lesion approximately 1 cm below the skin surface. Skin overlying the lesion was prepped and draped in usual sterile fashion. 1% lidocaine solution was injected for local anesthesia. A 19-gauge needle was advanced under direct ultrasound guidance into the lesion. Approximately 5 cc of bloody fl uid was removed. Patient experienced regional pain with partial decompression of the lesion and there fore the procedure was terminated. Patient otherwise tolerated the procedure well and there were no immediate postprocedural consultatio ns. CONCLUSION: 1. Ultrasound-guided aspiration of left periparotid complex cystic lesion yielding approximately 5 c c of bloody fluid. Procedure was terminated secondary to patient's symptoms with approximately an add itional 5 cc of residual volume. Electronically signed by: Aniceto Mendoza MD 06/13/2018 3:26 PM EST
--- NOTE | 2018-06-13 17:27 | P.PNID ---
Subjective Remarks: Mr. 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 Patient is now being admitted for a 4-week history of enlarged mass in the left cheek. Upon further clarification patient reports that approximately 5 weeks prior to admission he went camping and upon awakening he noticed a great size hard mass on his left cheek. At that time there were no signs of infection and he attributed this to a tick or a spider bite in that area. Since then the masses continue to grow in size and has now hardened in several places. Initially it was red in some places and he was prescribed antibiotics while in the hospital for another reason with IV vancomycin and Flagyl. He was thereafter discharged on an outpatient course of Keflex and clindamycin with no improvement in symptoms. Patient goes on to report that approximately the 2 weeks prior to admission he had an outpatient biopsy of the parotid area and was told that it he may not have cancer but that was a very superficial tissue. Thereafter patient had another attempt at biopsy and it appears the tissue was lost. But he also goes on to report that the fluid obtained at that time was pink to yellow in color. Patient now reports that the swelling is now increasing in size and is now just below his jaw. Patient also reports intermittent fevers as high as 102. He has experienced a dull ache in his left eye that is intermittent and resolves on its own. Patient reports pain on opening his mouth all the way and active chewing bothers him as well. He denies any dysphagia or odynophagia but does experience numbness in his throat at times. He is denies any change in his voice. He denies any dental problems he does have partial dentures. He reports having taken some lozenges as well as antibiotics both of which did not result in any change in the size or shape of this lesion. He reports his vision is at baseline although it has progressively been worsening for the last several years. At the present time his left eye is the better of the 2 eyes and he can appreciate shadows only. In the right eye he has no vision at all. Infectious diseases consulted for evaluation and management of possible infectious causes of parotid gland enlargement such as parotitis. Upon discussion with the patient and the primary team it appears that there is a plan for ultrasound-guided biopsy. Overnight events reviewed no fevers no rash No diarrhea s.p parotid biopsy US guided Cx and path sent Antibiotics: Zosyn Iv Lines: Line amish Past Medical History: reviewed Allergies/Adverse Reactions: Allergies Sulfa (Sulfonamide Antibiotics) Allergy (Mild, Verified 06/10/18 10:52) unknown Objective Vital Signs 06/12/18 20:00 06/12/18 22:01 06/13/18 00:00 Temperature 97.8 F 97.6 F Pulse Rate 73 73 Respiratory Rate 20 16 19 Blood Pressure 143/78 H 125/78 Pulse Oximetry 97 98 06/13/18 04:00 06/13/18 09:00 06/13/18 09:03 Temperature 97.6 F 98.0 F Pulse Rate 72 75 83 Respiratory Rate 20 16 Blood Pressure 118/72 153/87 H Pulse Oximetry 98 95 06/13/18 09:15 06/13/18 12:00 06/13/18 16:00 Temperature 98.0 F 98.3 F 98.1 F Pulse Rate 81 77 91 H Respiratory Rate 16 16 17 Blood Pressure 157/82 H 143/77 H 159/83 H Pulse Oximetry 95 98 98 Intake & Output 06/12/18 06/13/18 06/13/18 18:59 06:59 18:59 Intake Total 1610 / 1610 200 / 200 100 / 100 Output Total 1110 / 1110 1000 / 1000 Balance 500 / 500 200 / 200 -900 / -900 Weight 102.7 kg Intake: IV 450 / 450 200 / 200 100 / 100 Zosyn 4.5 GM Premix 4.5 gm In 200 / 200 200 / 200 100 / 100 100 ml @ 200 mls/hr IV.SIG Q6H [facility] Rx#:[id number] Vancomycin Inj 1,000 MG In NS 250 / 250 Inj 250 ML @ 250 mls/hr IV.SIG Q24H [facility] Rx#:[id number] Oral 1160 / 1160 0 / 0 Output: Urine 1110 / 1110 1000 / 1000 Other: # Voids 2 # Bowel Movements 0 06/13/18 08:50 Abscess - Cheek Gram Stain - Final 06/13/18 08:50 Abscess - Cheek Wound Culture - Pending 06/10/18 11:15 Blood - Peripheral Aerobic Blood Culture - Preliminary No growth in 3 days 06/10/18 11:15 Blood - Peripheral Anaerobic Blood Culture - Preliminary No growth in 3 days 06/10/18 11:10 Blood - Peripheral Aerobic Blood Culture - Preliminary No growth in 3 days 06/10/18 11:10 Blood - Peripheral Anaerobic Blood Culture - Preliminary No growth in 3 days Lab - Hematology Results 06/12/18 06/13/18 06/13/18 06:45 03:50 03:50 WBC 3.8 L 3.7 L RBC 4.71 4.67 Hgb 12.1 L 11.7 L Hct 36.8 L 36.0 L MCV 78.1 L 77.2 L MCH 25.7 L 25.1 L MCHC 32.9 32.6 RDW 18.8 H 18.6 H Plt Count 141 L 127 L MPV 8.4 8.4 Neut % (Auto) 73.9 H 73.4 H Lymph % (Auto) 16.5 16.6 [place] % (Auto) 8.6 H 8.5 H Eos % (Auto) 0.7 1.0 Baso % (Auto) 0.3 0.5 Neut # (Auto) 2.8 2.7 Lymph # (Auto) 0.6 L 0.6 L [place] # (Auto) 0.3 0.3 Eos # (Auto) 0.0 0.0 Baso # (Auto) 0.0 0.0 WBC Differential . . Differential Comment Auto diff final Auto diff final Smear Path Review Lab - Chemistry Results 06/11/18 06/12/18 06/12/18 20:54 06:45 07:52 Sodium 137 Potassium 4.0 Chloride 104 Carbon Dioxide 24.6 Anion Gap 8 BUN 16 Creatinine 1.69 H Estimated GFR 39 L POC Glucose 397 H 315 H Random Glucose 321 H D Calcium 8.4 L Total Bilirubin 0.5 AST 25 ALT 25 Alkaline Phosphatase 80 Total Protein 6.4 Albumin 3.1 L 06/12/18 06/12/18 06/12/18 11:29 16:17 19:53 Sodium Potassium Chloride Carbon Dioxide Anion Gap BUN Creatinine Estimated GFR POC Glucose 296 H 250 H 323 H Random Glucose Calcium Total Bilirubin AST ALT Alkaline Phosphatase Total Protein Albumin 06/13/18 06/13/18 06/13/18 05:50 12:17 15:47 Sodium 137 Potassium 4.3 Chloride 105 Carbon Dioxide 26.0 Anion Gap 6 BUN 17 Creatinine 1.61 H Estimated GFR 42 L POC Glucose 298 H 362 H Random Glucose 252 H Calcium 8.0 L Total Bilirubin 0.5 AST 21 ALT 24 Alkaline Phosphatase 61 Total Protein 6.2 L Albumin 3.0 L Imaging: ITS Impressions Chest X-Ray 06/10/18 11:03 CONCLUSION: Cardiac silhouette enlargement. Lungs clear. Soft Tissue Neck CT 06/10/18 11:03 CONCLUSION: 1. 2 cm thick-walled cystic mass or abscess in the left parotid gland with adjacent inflammatory change. 2. Severe degenerative findings of the cervical spine. Needle Aspiration US 06/13/18 00:00 CONCLUSION: 1. Ultrasound-guided aspiration of left periparotid complex cystic lesion yielding approximately 5 cc of bloody fluid. Procedure was terminated secondary to patient's symptoms with approximately an additional 5 cc of residual volume. Physical Exam: GENERAL: Well-nourished well-developed, not in acute distress SKIN: Cool and dry, no generalized rash HEAD: Atraumatic. Normocephalic. No temporal or scalp tenderness. EYES: Pupils equal round and reactive. Scleral icterus. No injection or drainage. No petechia ENT: Left parotid area swelling noted, non ballotable on bimanual exam. No dental lesions noted. Uvula central with no tonsillar masses. No change in voice noted. Left parotid swelling with hardness noted, no secretions or purulence on pressing the parotid gland. No LNpathy. NECK: Trachea midline. Supple, nontender, no meningeal signs. CARDIOVASCULAR: HS audible. RESPIRATORY: Clear to auscultation bilaterally. GASTROINTESTINAL: Abdomen soft nontender. MUSCULOSKELETAL: Extremities without clubbing, cyanosis. NEUROLOGICAL: Alert oriented 3. Nonfocal. Psych cooperative IV line sites ok. Assessment and Plan - Plan Parotid gland mass possible parotitis of infectious etiology versus underlying cancer. Status post multiple courses of IV as well as oral antibiotics. Renal cell carcinoma under observation with no chemoradiation therapy so far. Recs: Continue Zosyn IV for now will deescalate in am further to Unasyn Follow cultures Follow clinical course. dw would like to get both micro and pathology specimens of parotid tissue. Will follow along.
[2018-06-13] MEDS: Insulin Detemir Inj 1,000 UNIT/10 ML Vial SQ SCH (21:35)
[2018-06-14] MEDS: Piperacil/Tazo 4.5 GM Premix 4.5 GM/100 ML BAG IV.SIG SCH ×5 (01:05→23:54)
[2018-06-14] MEDS: Levothyroxine 150 MCG Tablet PO SCH (06:25)
[2018-06-14 06:41] LABS: INR 1.3 Ratio; Prothrombin Time 13.2 sec (9.8-11.6)
[2018-06-14 06:59] LABS: Calcium 8.4 mg/dL (8.5-10.1); Carbon Dioxide 26.7 meq/L (21.0-32.0); Potassium 4.1 meq/L (3.5-5.1)
[2018-06-14 07:06] LABS: Baso % (Auto) 0.3 % (0.0-2.0); Hematocrit 35.6 % (39.0-51.0); Hemoglobin 11.7 gm/dL (13.0-17.0); Lymph # (Auto) 0.7 th/mm3 (1.0-4.8); Lymph % (Auto) 17.4 % (9.0-44.0); Mean Corpuscular HGB Conc 32.8 % (32.0-36.0); Mean Corpuscular Hemoglobin 25.5 pg (27.0-34.0); Mean Corpuscular Volume 77.8 fL (80.0-100.0); Mean Platelet Volume 8.4 fL (7.0-11.0); Mono # (Auto) 0.4 th/mm3 (0.0-0.9); Mono % (Auto) 9.3 % (0.0-8.0); Neut # (Auto) 2.8 th/mm3 (1.8-7.7); Platelet Count 127 th/mm3 (150-450); Red Blood Count 4.58 mil/mm3 (4.50-5.90); Red Cell Distribution Width 18.8 % (11.6-17.2); White Blood Count 3.9 th/mm3 (4.0-11.0)
[2018-06-14] MEDS: Lisinopril 20 MG Tablet PO SCH (09:55)
[2018-06-14] MEDS: Insulin Detemir Inj 1,000 UNIT/10 ML Vial SQ SCH ×2 (09:56→20:39)
[2018-06-14] MEDS: Carvedilol 12.5 MG Tablet PO SCH ×2 (09:56→20:40)
[2018-06-14] MEDS: Furosemide 20 MG Tablet PO SCH (09:56)
[2018-06-14] MEDS: Insulin NovoLOG Aspart Correctional Sugar Inj SQ SCH ×4 (09:56→20:39)
[2018-06-14] MEDS: [UNRECOGNIZED DRUG - OTHER] LEFT EYE SCH ×2 (10:00→20:41)
[2018-06-14] MEDS: prednisoLONE Acetate 1% Opth Susp 5 ML Bottle RIGHT EYE SCH ×3 (10:00→18:19)
[2018-06-14] MEDS ORDERED: Insulin Detemir Inj 1,000 UNIT/10 ML Vial SQ SCH ×2 (12:43→13:00)
--- NOTE | 2018-06-14 18:30 | P.PNFP ---
Subjective Interval history: Patient states pain is controlled. No issues with swallowing or eating. No draining of gland noted. Clarified warfarin home dosing of 5 mg daily and 7.5mg on MWF. Patient feels like the erythema has improved. No other complaints. <Zora Burr - 06/14/18 18:30> Results - Labs Result diagrams: 06/15/18 06:54 06/15/18 06:54 <Martin Malone - 06/15/18 22:35> Abnormal lab results 06/15/18 06/15/18 06/15/18 Range/Units 06:54 06:54 06:56 WBC 3.9 L (4.0-11.0) th/mm3 Hgb 11.6 L (13.0-17.0) gm/dL Hct 36.0 L (39.0-51.0) % MCV 79.1 L (80.0-100.0) fL MCH 25.6 L (27.0-34.0) pg RDW 19.1 H (11.6-17.2) % Plt Count 127 L (150-450) th/mm3 Neut % (Auto) 75.9 H (16.0-70.0) % Lymph # (Auto) 0.6 L (1.0-4.8) th/mm3 PT 13.9 H (9.8-11.6) sec Creatinine 1.51 H (0.60-1.30) mg/dL Estimated GFR 45 L (>89) mL/min POC Glucose (68-110) mg/dl Random Glucose 248 H (74-106) mg/dL Calcium 8.3 L (8.5-10.1) mg/dL 06/15/18 06/15/18 06/15/18 Range/Units 08:17 12:14 16:44 WBC (4.0-11.0) th/mm3 Hgb (13.0-17.0) gm/dL Hct (39.0-51.0) % MCV (80.0-100.0) fL MCH (27.0-34.0) pg RDW (11.6-17.2) % Plt Count (150-450) th/mm3 Neut % (Auto) (16.0-70.0) % Lymph # (Auto) (1.0-4.8) th/mm3 PT (9.8-11.6) sec Creatinine (0.60-1.30) mg/dL Estimated GFR (>89) mL/min POC Glucose 252 H 271 H 305 H (68-110) mg/dl Random Glucose (74-106) mg/dL Calcium (8.5-10.1) mg/dL 06/15/18 Range/Units 19:38 WBC (4.0-11.0) th/mm3 Hgb (13.0-17.0) gm/dL Hct (39.0-51.0) % MCV (80.0-100.0) fL MCH (27.0-34.0) pg RDW (11.6-17.2) % Plt Count (150-450) th/mm3 Neut % (Auto) (16.0-70.0) % Lymph # (Auto) (1.0-4.8) th/mm3 PT (9.8-11.6) sec Creatinine (0.60-1.30) mg/dL Estimated GFR (>89) mL/min POC Glucose 226 H (68-110) mg/dl Random Glucose (74-106) mg/dL Calcium (8.5-10.1) mg/dL Short CBC 06/15/18 Range/Units 06:54 WBC 3.9 L (4.0-11.0) th/mm3 Hgb 11.6 L (13.0-17.0) gm/dL Hct 36.0 L (39.0-51.0) % Plt Count 127 L (150-450) th/mm3 BMP 06/15/18 06:54 Sodium 139 Potassium 4.3 Chloride 104 Carbon Dioxide 28.4 BUN 15 Creatinine 1.51 H Calcium 8.3 L <Young,Martin L - 06/15/18 22:35> Abnormal lab results 06/13/18 06/14/18 06/14/18 Range/Units 20:25 03:18 05:18 WBC 3.9 L (4.0-11.0) th/mm3 Hgb 11.7 L (13.0-17.0) gm/dL Hct 35.6 L (39.0-51.0) % MCV 77.8 L (80.0-100.0) fL MCH 25.5 L (27.0-34.0) pg RDW 18.8 H (11.6-17.2) % Plt Count 127 L (150-450) th/mm3 Neut % (Auto) 72.0 H (16.0-70.0) % [place] % (Auto) 9.3 H (0.0-8.0) % Lymph # (Auto) 0.7 L (1.0-4.8) th/mm3 PT 13.2 H (9.8-11.6) sec Creatinine (0.60-1.30) mg/dL Estimated GFR (>89) mL/min POC Glucose 395 H (68-110) mg/dl Random Glucose (74-106) mg/dL Calcium (8.5-10.1) mg/dL 06/14/18 06/14/18 06/14/18 Range/Units 05:18 12:41 17:34 WBC (4.0-11.0) th/mm3 Hgb (13.0-17.0) gm/dL Hct (39.0-51.0) % MCV (80.0-100.0) fL MCH (27.0-34.0) pg RDW (11.6-17.2) % Plt Count (150-450) th/mm3 Neut % (Auto) (16.0-70.0) % [place] % (Auto) (0.0-8.0) % Lymph # (Auto) (1.0-4.8) th/mm3 PT (9.8-11.6) sec Creatinine 1.54 H (0.60-1.30) mg/dL Estimated GFR 44 L (>89) mL/min POC Glucose 291 H 245 H (68-110) mg/dl Random Glucose 266 H (74-106) mg/dL Calcium 8.4 L (8.5-10.1) mg/dL Short CBC 06/14/18 Range/Units 03:18 WBC 3.9 L (4.0-11.0) th/mm3 Hgb 11.7 L (13.0-17.0) gm/dL Hct 35.6 L (39.0-51.0) % Plt Count 127 L (150-450) th/mm3 BMP 06/14/18 05:18 Sodium 137 Potassium 4.1 Chloride 102 Carbon Dioxide 26.7 BUN 17 Creatinine 1.54 H Calcium 8.4 L <Zora Burr C - 06/14/18 18:30> Physical Exam Vital signs: Vital Signs 06/14/18 23:53 06/14/18 23:55 06/15/18 00:00 Temperature 97.5 F L Pulse Rate 79 88 Respiratory Rate 18 17 Blood Pressure 158/71 H Pulse Oximetry 94 L 06/15/18 04:00 06/15/18 06:44 06/15/18 08:00 Temperature 97.5 F L 97.5 F L Pulse Rate 83 63 Respiratory Rate 17 18 16 Blood Pressure 162/84 H 163/87 H Pulse Oximetry 94 L 95 06/15/18 12:00 06/15/18 16:00 06/15/18 20:00 Temperature 97.7 F 97.7 F 97.4 F L Pulse Rate 80 74 79 Respiratory Rate 18 18 17 Blood Pressure 170/93 H 130/88 130/66 Pulse Oximetry 95 95 98 Intake & Output 06/15/18 06/15/18 06/16/18 06:59 18:59 06:59 Intake Total 660 / 660 820 / 820 Output Total 750 / 750 600 / 600 Balance -90 / -90 220 / 220 Weight 102.8 kg Intake: IV 300 / 300 100 / 100 Zosyn 4.5 GM Premix 4.5 gm In 300 / 300 100 / 100 100 ml @ 200 mls/hr IV.SIG Q6H [facility] Rx#:[id number] Oral 360 / 360 720 / 720 Output: Urine 750 / 750 600 / 600 Other: Date of Last Bowel Movement 06/14/18 # Bowel Movements 1 <Martin Malone L - 06/15/18 22:35> Vital Signs 06/13/18 20:00 06/14/18 00:00 06/14/18 04:00 Temperature 98.0 F 97.8 F 97.8 F Pulse Rate 78 85 72 Respiratory Rate 18 17 16 Blood Pressure 140/82 143/66 H 138/69 Pulse Oximetry 94 L 97 97 06/14/18 08:00 06/14/18 09:00 06/14/18 12:00 Temperature 97.7 F 97.6 F Pulse Rate 72 70 78 Respiratory Rate 20 20 Blood Pressure 136/73 123/61 Pulse Oximetry 96 97 Intake & Output 06/13/18 06/14/18 06/14/18 18:59 06:59 18:59 Intake Total 100 / 100 620 / 620 200 / 200 Output Total 1000 / 1000 1200 / 1200 Balance -900 / -900 -580 / -580 200 / 200 Weight 103.1 kg Intake: IV 100 / 100 200 / 200 200 / 200 Zosyn 4.5 GM Premix 4.5 gm In 100 / 100 200 / 200 200 / 200 100 ml @ 200 mls/hr IV.SIG Q6H SNOW Rx#:[id number] Oral 420 / 420 Output: Urine 1000 / 1000 1200 / 1200 Other: # Voids 3 <Zora Burr Angie - 06/14/18 18:30> Narrative: GENERAL: Well-nourished well-developed, not in acute distress SKIN: Cool and dry, no generalized rash HEAD: Atraumatic. Normocephalic. No temporal or scalp tenderness. EYES: Pupils equal round and reactive. Scleral icterus. No injection or drainage. No petechia ENT: Left parotid area swelling noted. No dental lesions noted. Uvula central with no tonsillar masses. No change in voice noted. Left parotid swelling with hardness noted, no secretions or purulence on pressing the parotid gland. Some swelling noted into sternocleidomastoid. 4x5cm but decreased erythema and less protrusion from yesterday. NECK: Trachea midline. Supple, nontender, no meningeal signs. CARDIOVASCULAR: No murmurs or gallops . RRR clear S1 S2 RESPIRATORY: Clear to auscultation bilaterally. GASTROINTESTINAL: Abdomen soft nontender. MUSCULOSKELETAL: Extremities without clubbing, cyanosis. NEUROLOGICAL: Alert oriented 3. Nonfocal. Psych cooperative <Zora Burr - 06/14/18 18:30> Assessment and Plan - Assessment (1) Mass of parotid gland Code(s): K11.9 - Disease of salivary gland, unspecified Status: Acute (2) A-fib Code(s): I48.91 - Unspecified atrial fibrillation Status: Acute (3) Glaucoma Code(s): H40.9 - Unspecified glaucoma Status: Acute (4) Blind in both eyes Code(s): H54.3 - Unqualified visual loss, both eyes Status: Acute (5) Diabetes Code(s): E11.9 - Type 2 diabetes mellitus without complications Status: Acute (6) Hypertension Code(s): I10 - Essential (primary) hypertension Status: Acute (7) Hyperlipidemia Code(s): E78.5 - Hyperlipidemia, unspecified Status: Acute (8) Hypothyroidism Code(s): E03.9 - Hypothyroidism, unspecified Status: Acute (9) Nutrition, metabolism, and development symptoms Code(s): R63.8 - Other symptoms and signs concerning food and fluid intake Status: Acute <Martin Malone - 06/15/18 22:35> (1) Mass of parotid gland Code(s): K11.9 - Disease of salivary gland, unspecified Status: Acute Plan: Left parotid abscess based on CT findings, however has had several I&D with recurrence Head CT 05/25/18: 2.5 cm left facial abscess or necrotic mass in the anterior left parotid with surrounding edema or inflammatory change. Soft tissue neck CT 06/10/18: 2 cm thick-walled cystic mass or abscess in the left parotid gland with adjacent inflammatory change left facial swelling appears stable Left facial swelling measured to be 4.5 cm x 5 cm yesterday; Decreasing erythema and size. Blood cultures no growth times 4 days -ENT consulted, f/u recs; patient previously seen by Dr. Stoll Recommended ID consult for further evaluation of fluid and treatment. -Discontinue vancomycin and start patient on IV Zosyn with plan to transition to Unasyn. Pt s/p US guided full aspiration of cystic fluid by IR (06/13). f/u cystic fluid studies results: Gram stain Rare WBC no organisms seen. Culture NG for 24 hours. Specimen shows pancytopenia ddx infection/drug/ nutrition/stress INR 06/11 was 3.4, 06/12 was 2, and 06/13 was 1.6. 06/14 INR 1.3. Warfarin home regimen 5g and 7.5 mg MWF. (2) A-fib Code(s): I48.91 - Unspecified atrial fibrillation Status: Acute Plan: Patient has history of atrial fibrillation (on Coumadin). EKG on admission showed atrial fibrillation that was not appreciated on physical exam. Patient is currently rate controlled. - home Coumadin 5 mg and 7.5 mg MWF (3) Glaucoma Code(s): H40.9 - Unspecified glaucoma Status: Acute Plan: Patient history significant for glaucoma in both eyes. Patient previously had surgery but is ultimately blind in both eyes. 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 Patient blind in both eyes. -Please use precaution as patient is visually impaired (5) Diabetes Code(s): E11.9 - Type 2 diabetes mellitus without complications Status: Acute Plan: Patient known type II diabetic on metformin, Lantus, and Empagliflozin. -Hold home medications -Patient continue with elevated blood sugars above 300s. Correctional 23 units given -We will adjust Levemir to 30 units twice daily starting tonight. 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 Patient normotensive on admission. -Continue home lisinopril, carvedilol, and furosemide -Patient with elevated BP this am 150s/87, asymptomatic -continue to monitor VS -consider PRN medication for Bp > or = 180/100 (7) Hyperlipidemia Code(s): E78.5 - Hyperlipidemia, unspecified Status: Acute Plan: Patient has history of hyperlipidemia and has a cardiac history significant for quadruple bypass surgery as well as placement of stent -Continue home rosuvastatin (8) Hypothyroidism Code(s): E03.9 - Hypothyroidism, unspecified Status: Acute Plan: Patient suffers from hypothyroidism -Continue home levothyroxine 150 mcg (9) Nutrition, metabolism, and development symptoms Code(s): R63.8 - Other symptoms and signs concerning food and fluid intake Status: Acute Plan: Fluids: Not indicated at this time Electrolytes: Replete as needed Nutrition: Diabetic diet DVT prophylaxis: Coumadin <Zora Burr - 06/14/18 18:17> - Attending Attestation The exam, history, and the medical decision-making described in the above note were completed with the assistance of the resident physician. I reviewed and agree with the findings presented. I attest that I had a [id number] encounter with the patient on the same day, and personally performed and documented my assessment and findings in the medical record. <Martin Malone - 06/15/18 22:35> <Zora Burr Last Filed: 06/14/18 18:17> (5) Diabetes Qualifiers: Diabetes mellitus type: type 2 Diabetes mellitus visual merchandising coordinator insulin use: without group home use Diabetes mellitus complication status: without complication Qualified Code(s): E11.9 - Type 2 diabetes mellitus without complications (6) Hypertension Qualifiers: Hypertension type: essential hypertension Qualified Code(s): I10 - Essential (primary) hypertension (7) Hyperlipidemia Qualifiers: Hyperlipidemia type: unspecified Qualified Code(s): E78.5 - Hyperlipidemia, unspecified <Martin Malone - Last Filed: 06/15/18 22:35> (5) Diabetes Qualifiers: Diabetes mellitus type: type 2 Diabetes mellitus group home insulin use: without visual merchandising coordinator use Diabetes mellitus complication status: without complication Qualified Code(s): E11.9 - Type 2 diabetes mellitus without complications (6) Hypertension Qualifiers: Hypertension type: essential hypertension Qualified Code(s): I10 - Essential (primary) hypertension (7) Hyperlipidemia Qualifiers: Hyperlipidemia type: unspecified Qualified Code(s): E78.5 - Hyperlipidemia, unspecified <Zora Burr Filed: 06/14/18 18:17> (5) Diabetes Qualifiers: Diabetes mellitus type: type 2 Diabetes mellitus visual merchandising coordinator insulin use: without visual merchandising coordinator use Diabetes mellitus complication status: without complication Qualified Code(s): E11.9 - Type 2 diabetes mellitus without complications (6) Hypertension Qualifiers: Hypertension type: essential hypertension Qualified Code(s): I10 - Essential (primary) hypertension (7) Hyperlipidemia Qualifiers: Hyperlipidemia type: unspecified Qualified Code(s): E78.5 - Hyperlipidemia, unspecified <Martin Malone - Last Filed: 06/15/18 22:35> (5) Diabetes Qualifiers: Diabetes mellitus type: type 2 Diabetes mellitus group home insulin use: without group home use Diabetes mellitus complication status: without complication Qualified Code(s): E11.9 - Type 2 diabetes mellitus without complications (6) Hypertension Qualifiers: Hypertension type: essential hypertension Qualified Code(s): I10 - Essential (primary) hypertension (7) Hyperlipidemia Qualifiers: Hyperlipidemia type: unspecified Qualified Code(s): E78.5 - Hyperlipidemia, unspecified
[2018-06-14] MEDS ORDERED: Sodium Chloride 0.9% 2 ML Flush PRN IV.FLUSH (20:42)
[2018-06-14] MEDS: Sodium Chloride 0.9% 2 ML Flush BID IV.FLUSH SCH (22:21)
[2018-06-15] MEDS: Piperacil/Tazo 4.5 GM Premix 4.5 GM/100 ML BAG IV.SIG SCH ×2 (05:08→13:44)
[2018-06-15] MEDS: Levothyroxine 150 MCG Tablet PO SCH (05:08)
[2018-06-15 07:22] LABS: Baso % (Auto) 0.3 % (0.0-2.0); Eos % (Auto) 0.9 % (0.0-4.0); Hemoglobin 11.6 gm/dL (13.0-17.0); Lymph # (Auto) 0.6 th/mm3 (1.0-4.8); Lymph % (Auto) 15.2 % (9.0-44.0); Mean Corpuscular HGB Conc 32.3 % (32.0-36.0); Mean Corpuscular Hemoglobin 25.6 pg (27.0-34.0); Mean Corpuscular Volume 79.1 fL (80.0-100.0); Mono # (Auto) 0.3 th/mm3 (0.0-0.9); Mono % (Auto) 7.7 % (0.0-8.0); Neut # (Auto) 2.9 th/mm3 (1.8-7.7); Neut % (Auto) 75.9 % (16.0-70.0); Platelet Count 127 th/mm3 (150-450); Red Blood Count 4.55 mil/mm3 (4.50-5.90); Red Cell Distribution Width 19.1 % (11.6-17.2); White Blood Count 3.9 th/mm3 (4.0-11.0)
[2018-06-15 07:30] LABS: INR 1.4 Ratio; Prothrombin Time 13.9 sec (9.8-11.6)
[2018-06-15 07:54] LABS: Calcium 8.3 mg/dL (8.5-10.1); Carbon Dioxide 28.4 meq/L (21.0-32.0); Potassium 4.3 meq/L (3.5-5.1)
[2018-06-15] MEDS: [UNRECOGNIZED DRUG - OTHER] LEFT EYE SCH ×2 (09:00→21:03)
[2018-06-15] MEDS: prednisoLONE Acetate 1% Opth Susp 5 ML Bottle RIGHT EYE SCH ×3 (10:24→17:10)
[2018-06-15] MEDS: Sodium Chloride 0.9% 2 ML Flush BID IV.FLUSH SCH ×2 (10:24→21:04)
[2018-06-15] MEDS: Lisinopril 20 MG Tablet PO SCH (10:24)
[2018-06-15] MEDS: Insulin NovoLOG Aspart Correctional Sugar Inj SQ SCH ×4 (10:25→20:42)
[2018-06-15] MEDS: Carvedilol 12.5 MG Tablet PO SCH ×2 (10:25→20:41)
[2018-06-15] MEDS: Furosemide 20 MG Tablet PO SCH (10:25)
[2018-06-15] MEDS: Insulin Detemir Inj 1,000 UNIT/10 ML Vial SQ SCH ×2 (10:25→20:41)
--- NOTE | 2018-06-15 14:05 | P.PNFP ---
Subjective Interval history: No acute events overnight. Patient seen and examined this AM. Patient had no specific complaints other than inquiring about possible diagnoses of his mass. Denies fevers, chills, increase in pain or size, CP. Remains afebrile. BPs ranging 120s-160s/60s-90s past 24 hours. <AriannabreannShane cao - 06/15/18 14:05> Results - Labs Result diagrams: 06/15/18 06:54 06/15/18 06:54 <Martin Malone - 06/15/18 22:13> Abnormal lab results 06/15/18 06/15/18 06/15/18 Range/Units 06:54 06:54 06:56 WBC 3.9 L (4.0-11.0) th/mm3 Hgb 11.6 L (13.0-17.0) gm/dL Hct 36.0 L (39.0-51.0) % MCV 79.1 L (80.0-100.0) fL MCH 25.6 L (27.0-34.0) pg RDW 19.1 H (11.6-17.2) % Plt Count 127 L (150-450) th/mm3 Neut % (Auto) 75.9 H (16.0-70.0) % Lymph # (Auto) 0.6 L (1.0-4.8) th/mm3 PT 13.9 H (9.8-11.6) sec Creatinine 1.51 H (0.60-1.30) mg/dL Estimated GFR 45 L (>89) mL/min POC Glucose (68-110) mg/dl Random Glucose 248 H (74-106) mg/dL Calcium 8.3 L (8.5-10.1) mg/dL 06/15/18 06/15/18 06/15/18 Range/Units 08:17 12:14 16:44 WBC (4.0-11.0) th/mm3 Hgb (13.0-17.0) gm/dL Hct (39.0-51.0) % MCV (80.0-100.0) fL MCH (27.0-34.0) pg RDW (11.6-17.2) % Plt Count (150-450) th/mm3 Neut % (Auto) (16.0-70.0) % Lymph # (Auto) (1.0-4.8) th/mm3 PT (9.8-11.6) sec Creatinine (0.60-1.30) mg/dL Estimated GFR (>89) mL/min POC Glucose 252 H 271 H 305 H (68-110) mg/dl Random Glucose (74-106) mg/dL Calcium (8.5-10.1) mg/dL 06/15/18 Range/Units 19:38 WBC (4.0-11.0) th/mm3 Hgb (13.0-17.0) gm/dL Hct (39.0-51.0) % MCV (80.0-100.0) fL MCH (27.0-34.0) pg RDW (11.6-17.2) % Plt Count (150-450) th/mm3 Neut % (Auto) (16.0-70.0) % Lymph # (Auto) (1.0-4.8) th/mm3 PT (9.8-11.6) sec Creatinine (0.60-1.30) mg/dL Estimated GFR (>89) mL/min POC Glucose 226 H (68-110) mg/dl Random Glucose (74-106) mg/dL Calcium (8.5-10.1) mg/dL Short CBC 06/15/18 Range/Units 06:54 WBC 3.9 L (4.0-11.0) th/mm3 Hgb 11.6 L (13.0-17.0) gm/dL Hct 36.0 L (39.0-51.0) % Plt Count 127 L (150-450) th/mm3 BMP 06/15/18 06:54 Sodium 139 Potassium 4.3 Chloride 104 Carbon Dioxide 28.4 BUN 15 Creatinine 1.51 H Calcium 8.3 L <Young,Martin L - 06/15/18 22:13> Abnormal lab results 06/14/18 06/14/18 06/15/18 Range/Units 17:34 19:29 06:54 WBC 3.9 L (4.0-11.0) th/mm3 Hgb 11.6 L (13.0-17.0) gm/dL Hct 36.0 L (39.0-51.0) % MCV 79.1 L (80.0-100.0) fL MCH 25.6 L (27.0-34.0) pg RDW 19.1 H (11.6-17.2) % Plt Count 127 L (150-450) th/mm3 Neut % (Auto) 75.9 H (16.0-70.0) % Lymph # (Auto) 0.6 L (1.0-4.8) th/mm3 PT (9.8-11.6) sec Creatinine (0.60-1.30) mg/dL Estimated GFR (>89) mL/min POC Glucose 245 H 260 H (68-110) mg/dl Random Glucose (74-106) mg/dL Calcium (8.5-10.1) mg/dL 06/15/18 06/15/18 06/15/18 Range/Units 06:54 06:56 08:17 WBC (4.0-11.0) th/mm3 Hgb (13.0-17.0) gm/dL Hct (39.0-51.0) % MCV (80.0-100.0) fL MCH (27.0-34.0) pg RDW (11.6-17.2) % Plt Count (150-450) th/mm3 Neut % (Auto) (16.0-70.0) % Lymph # (Auto) (1.0-4.8) th/mm3 PT 13.9 H (9.8-11.6) sec Creatinine 1.51 H (0.60-1.30) mg/dL Estimated GFR 45 L (>89) mL/min POC Glucose 252 H (68-110) mg/dl Random Glucose 248 H (74-106) mg/dL Calcium 8.3 L (8.5-10.1) mg/dL 06/15/18 Range/Units 12:14 WBC (4.0-11.0) th/mm3 Hgb (13.0-17.0) gm/dL Hct (39.0-51.0) % MCV (80.0-100.0) fL MCH (27.0-34.0) pg RDW (11.6-17.2) % Plt Count (150-450) th/mm3 Neut % (Auto) (16.0-70.0) % Lymph # (Auto) (1.0-4.8) th/mm3 PT (9.8-11.6) sec Creatinine (0.60-1.30) mg/dL Estimated GFR (>89) mL/min POC Glucose 271 H (68-110) mg/dl Random Glucose (74-106) mg/dL Calcium (8.5-10.1) mg/dL Short CBC 06/15/18 Range/Units 06:54 WBC 3.9 L (4.0-11.0) th/mm3 Hgb 11.6 L (13.0-17.0) gm/dL Hct 36.0 L (39.0-51.0) % Plt Count 127 L (150-450) th/mm3 BMP 06/15/18 06:54 Sodium 139 Potassium 4.3 Chloride 104 Carbon Dioxide 28.4 BUN 15 Creatinine 1.51 H Calcium 8.3 L <Shane Holland - 06/15/18 14:05> Physical Exam Vital signs: Vital Signs 06/14/18 23:53 06/14/18 23:55 06/15/18 00:00 Temperature 97.5 F L Pulse Rate 79 88 Respiratory Rate 18 17 Blood Pressure 158/71 H Pulse Oximetry 94 L 06/15/18 04:00 06/15/18 06:44 06/15/18 08:00 Temperature 97.5 F L 97.5 F L Pulse Rate 83 63 Respiratory Rate 17 18 16 Blood Pressure 162/84 H 163/87 H Pulse Oximetry 94 L 95 06/15/18 12:00 06/15/18 16:00 06/15/18 20:00 Temperature 97.7 F 97.7 F 97.4 F L Pulse Rate 80 74 79 Respiratory Rate 18 18 17 Blood Pressure 170/93 H 130/88 130/66 Pulse Oximetry 95 95 98 Intake & Output 06/15/18 06/15/18 06/16/18 06:59 18:59 06:59 Intake Total 660 / 660 820 / 820 Output Total 750 / 750 600 / 600 Balance -90 / -90 220 / 220 Weight 102.8 kg Intake: IV 300 / 300 100 / 100 Zosyn 4.5 GM Premix 4.5 gm In 300 / 300 100 / 100 100 ml @ 200 mls/hr IV.SIG Q6H [facility] Rx#:[id number] Oral 360 / 360 720 / 720 Output: Urine 750 / 750 600 / 600 Other: Date of Last Bowel Movement 06/14/18 # Bowel Movements 1 <FaisalMartin Dangelo - 06/15/18 22:13> Vital Signs 06/14/18 16:00 06/14/18 20:00 06/14/18 23:53 Temperature 97.3 F L 97.4 F L Pulse Rate 76 73 79 Respiratory Rate 20 18 Blood Pressure 145/92 H 134/67 Pulse Oximetry 97 96 06/14/18 23:55 06/15/18 00:00 06/15/18 04:00 Temperature 97.5 F L 97.5 F L Pulse Rate 88 83 Respiratory Rate 18 17 17 Blood Pressure 158/71 H 162/84 H Pulse Oximetry 94 L 94 L 06/15/18 06:44 06/15/18 08:00 Temperature 97.5 F L Pulse Rate 63 Respiratory Rate 18 16 Blood Pressure 163/87 H Pulse Oximetry 95 Intake & Output 06/14/18 06/15/18 06/15/18 18:59 06:59 18:59 Intake Total 920 / 920 660 / 660 Output Total 1450 / 1450 750 / 750 Balance -530 / -530 -90 / -90 Weight 102.8 kg Intake: IV 200 / 200 300 / 300 Zosyn 4.5 GM Premix 4.5 gm In 200 / 200 300 / 300 100 ml @ 200 mls/hr IV.SIG Q6H [facility] Rx#:[id number] Oral 720 / 720 360 / 360 Output: Urine 1450 / 1450 750 / 750 Other: Date of Last Bowel Movement 06/14/18 # Bowel Movements 0 1 <Shane Holland - 06/15/18 14:05> Narrative: GENERAL: Well-nourished well-developed, not in acute distress SKIN: Cool and dry HEAD: Atraumatic. Normocephalic. EYES: No injection or drainage. No petechia ENT: Left parotid area swelling noted. No dental lesions noted. Uvula central with no tonsillar masses. No change in voice noted. Left parotid swelling with hardness noted, no secretions or purulence on pressing the parotid gland. Some swelling noted into sternocleidomastoid. 4x5cm but decreased erythema. NECK: Trachea midline. Supple, nontender, no meningeal signs. CARDIOVASCULAR: RRR, no m/r/g RESPIRATORY: Clear to auscultation bilaterally. GASTROINTESTINAL: Abdomen soft, nontender. MUSCULOSKELETAL: Extremities without clubbing, cyanosis. NEUROLOGICAL: Alert oriented 3. Nonfocal. <Shane Holland - 06/15/18 14:05> Assessment and Plan - Assessment (1) Mass of parotid gland Code(s): K11.9 - Disease of salivary gland, unspecified Status: Acute (2) A-fib Code(s): I48.91 - Unspecified atrial fibrillation Status: Acute (3) Glaucoma Code(s): H40.9 - Unspecified glaucoma Status: Acute (4) Blind in both eyes Code(s): H54.3 - Unqualified visual loss, both eyes Status: Acute (5) Diabetes Code(s): E11.9 - Type 2 diabetes mellitus without complications Status: Acute (6) Hypertension Code(s): I10 - Essential (primary) hypertension Status: Acute (7) Hyperlipidemia Code(s): E78.5 - Hyperlipidemia, unspecified Status: Acute (8) Hypothyroidism Code(s): E03.9 - Hypothyroidism, unspecified Status: Acute (9) Nutrition, metabolism, and development symptoms Code(s): R63.8 - Other symptoms and signs concerning food and fluid intake Status: Acute <FaisalMartin Dangelo - 06/15/18 22:13> (1) Mass of parotid gland Code(s): K11.9 - Disease of salivary gland, unspecified Status: Acute Plan: Left parotid abscess based on CT findings, however has had several I&D with recurrence Head CT 05/25/18: 2.5 cm left facial abscess or necrotic mass in the anterior left parotid with surrounding edema or inflammatory change. Soft tissue neck CT 06/10/18: 2 cm thick-walled cystic mass or abscess in the left parotid gland with adjacent inflammatory change Left facial swelling appears stable, measured to be 4.5 cm x 5 cm Blood cultures no growth after five days -ENT consulted, f/u recs; patient previously seen by Dr. Stoll Recommended ID consult for further evaluation of fluid and treatment. -Discontinue vancomycin and start patient on IV Zosyn with plan to transition to Unasyn. Pt s/p US guided full aspiration of cystic fluid by IR (06/13). f/u cystic fluid studies results: Gram stain Rare WBC no organisms seen. Culture NG for 24 hours. Specimen shows pancytopenia ddx infection/drug/ nutrition/stress (2) A-fib Code(s): I48.91 - Unspecified atrial fibrillation Status: Acute Plan: Patient has history of atrial fibrillation (on Coumadin). EKG on admission showed atrial fibrillation that was not appreciated on physical exam. Patient is currently rate controlled. Will increase warfarin to 6 mg po daily Continue to monitor INR (3) Glaucoma Code(s): H40.9 - Unspecified glaucoma Status: Acute Plan: Patient history significant for glaucoma in both eyes. Patient previously had surgery but is ultimately blind in both eyes. 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 Patient blind in both eyes. -Please use precaution as patient is visually impaired (5) Diabetes Code(s): E11.9 - Type 2 diabetes mellitus without complications Status: Acute Plan: Patient known type II diabetic on metformin, Lantus, and Empagliflozin. -Hold home medications -Continue Levemir 30 units twice daily -Continue with low-dose sliding scale -Hypoglycemia protocol in place (6) Hypertension Code(s): I10 - Essential (primary) hypertension Status: Acute Plan: Continue home lisinopril, carvedilol, and furosemide Continue to monitor VS (7) Hyperlipidemia Code(s): E78.5 - Hyperlipidemia, unspecified Status: Acute Plan: Continue home rosuvastatin (8) Hypothyroidism Code(s): E03.9 - Hypothyroidism, unspecified Status: Acute Plan: Continue home levothyroxine 150 mcg po daily (9) Nutrition, metabolism, and development symptoms Code(s): R63.8 - Other symptoms and signs concerning food and fluid intake Status: Acute Plan: Fluids: Not indicated at this time Electrolytes: Replete as needed Nutrition: Diabetic diet DVT prophylaxis: Coumadin <Shane Holland - 06/15/18 13:42> - Attending Attestation The exam, history, and the medical decision-making described in the above note were completed with the assistance of the resident physician. I reviewed and agree with the findings presented. I attest that I had a [id number] encounter with the patient on the same day, and personally performed and documented my assessment and findings in the medical record. No new findings at time of exam. Culture negative to date. 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: without intermediate school teacher use Diabetes mellitus complication status: without complication Qualified Code(s): E11.9 - Type 2 diabetes mellitus without complications (6) Hypertension Qualifiers: Hypertension type: essential hypertension Qualified Code(s): I10 - Essential (primary) hypertension (7) Hyperlipidemia Qualifiers: Hyperlipidemia type: unspecified Qualified Code(s): E78.5 - Hyperlipidemia, unspecified <Martin Malone Dangelo - Last Filed: 06/15/18 22:13> (5) Diabetes Qualifiers: Diabetes mellitus type: type 2 Diabetes mellitus 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: without intermediate school teacher use Diabetes mellitus complication status: without complication Qualified Code(s): E11.9 - Type 2 diabetes mellitus without complications (6) Hypertension Qualifiers: Hypertension type: essential hypertension Qualified Code(s): I10 - Essential (primary) hypertension (7) Hyperlipidemia Qualifiers: Hyperlipidemia type: unspecified Qualified Code(s): E78.5 - Hyperlipidemia, unspecified <AriannabreannShane cao - Last Filed: 06/15/18 13:42> (5) Diabetes Qualifiers: Diabetes mellitus type: type 2 Diabetes mellitus 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: without senior care use Diabetes mellitus complication status: without complication Qualified Code(s): E11.9 - Type 2 diabetes mellitus without complications (6) Hypertension Qualifiers: Hypertension type: essential hypertension Qualified Code(s): I10 - Essential (primary) hypertension (7) Hyperlipidemia Qualifiers: Hyperlipidemia type: unspecified Qualified Code(s): E78.5 - Hyperlipidemia, unspecified <Martin Malone - Last Filed: 06/15/18 22:13> (5) Diabetes Qualifiers: Diabetes mellitus type: type 2 Diabetes mellitus 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: without senior care use Diabetes mellitus complication status: without complication Qualified Code(s): E11.9 - Type 2 diabetes mellitus without complications (6) Hypertension Qualifiers: Hypertension type: essential hypertension Qualified Code(s): I10 - Essential (primary) hypertension (7) Hyperlipidemia Qualifiers: Hyperlipidemia type: unspecified Qualified Code(s): E78.5 - Hyperlipidemia, unspecified
--- NOTE | 2018-06-15 16:06 | P.PNID ---
Subjective Remarks: ID COVERAGE. Notes reviewed. Patient is without complaints. Discussed with RN. Denies headache. No fever. 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 Culture is negative. Notes that he does not have pain in the left parotid area of swelling. Mr. 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 Patient is now being admitted for a 4-week history of enlarged mass in the left cheek. Upon further clarification patient reports that approximately 5 weeks prior to admission he went camping and upon awakening he noticed a great size hard mass on his left cheek. At that time there were no signs of infection and he attributed this to a tick or a spider bite in that area. Since then the masses continue to grow in size and has now hardened in several places. Initially it was red in some places and he was prescribed antibiotics while in the hospital for another reason with IV vancomycin and Flagyl. He was thereafter discharged on an outpatient course of Keflex and clindamycin with no improvement in symptoms. Infectious diseases consulted for evaluation and management of possible infectious causes of parotid gland enlargement such as parotitis. Antibiotics: Zosyn Iv Lines: Line ok Past Medical History: reviewed Allergies/Adverse Reactions: Allergies Sulfa (Sulfonamide Antibiotics) Allergy (Mild, Verified 06/10/18 10:52) unknown Objective Vital Signs 06/14/18 16:00 06/14/18 20:00 06/14/18 23:53 Temperature 97.3 F L 97.4 F L Pulse Rate 76 73 79 Respiratory Rate 20 18 Blood Pressure 145/92 H 134/67 Pulse Oximetry 97 96 06/14/18 23:55 06/15/18 00:00 06/15/18 04:00 Temperature 97.5 F L 97.5 F L Pulse Rate 88 83 Respiratory Rate 18 17 17 Blood Pressure 158/71 H 162/84 H Pulse Oximetry 94 L 94 L 06/15/18 06:44 06/15/18 08:00 Temperature 97.5 F L Pulse Rate 63 Respiratory Rate 18 16 Blood Pressure 163/87 H Pulse Oximetry 95 Intake & Output 06/14/18 06/15/18 06/15/18 18:59 06:59 18:59 Intake Total 920 / 920 660 / 660 Output Total 1450 / 1450 750 / 750 Balance -530 / -530 -90 / -90 Weight 102.8 kg Intake: IV 200 / 200 300 / 300 Zosyn 4.5 GM Premix 4.5 gm In 200 / 200 300 / 300 100 ml @ 200 mls/hr IV.SIG Q6H [facility] Rx#:[id number] Oral 720 / 720 360 / 360 Output: Urine 1450 / 1450 750 / 750 Other: Date of Last Bowel Movement 06/14/18 # Bowel Movements 0 1 06/10/18 11:15 Blood - Peripheral Aerobic Blood Culture - Final No growth in 5 days 06/10/18 11:15 Blood - Peripheral Anaerobic Blood Culture - Final No growth in 5 days 06/10/18 11:10 Blood - Peripheral Aerobic Blood Culture - Final No growth in 5 days 06/10/18 11:10 Blood - Peripheral Anaerobic Blood Culture - Final No growth in 5 days 06/13/18 08:50 Abscess - Cheek Gram Stain - Final 06/13/18 08:50 Abscess - Cheek Wound Culture - Preliminary No growth in 48 hours Lab - Hematology Results 06/14/18 06/15/18 03:18 06:54 WBC 3.9 L 3.9 L RBC 4.58 4.55 Hgb 11.7 L 11.6 L Hct 35.6 L 36.0 L MCV 77.8 L 79.1 L MCH 25.5 L 25.6 L MCHC 32.8 32.3 RDW 18.8 H 19.1 H Plt Count 127 L 127 L MPV 8.4 8.0 Neut % (Auto) 72.0 H 75.9 H Lymph % (Auto) 17.4 15.2 Randolph % (Auto) 9.3 H 7.7 Eos % (Auto) 1.0 0.9 Baso % (Auto) 0.3 0.3 Neut # (Auto) 2.8 2.9 Lymph # (Auto) 0.7 L 0.6 L Randolph # (Auto) 0.4 0.3 Eos # (Auto) 0.0 0.0 Baso # (Auto) 0.0 0.0 WBC Differential . . Differential Comment Auto diff final Auto diff final Lab - Chemistry Results 06/13/18 06/14/18 06/14/18 20:25 05:18 12:41 Sodium 137 Potassium 4.1 Chloride 102 Carbon Dioxide 26.7 Anion Gap 8 BUN 17 Creatinine 1.54 H Estimated GFR 44 L POC Glucose 395 H 291 H Random Glucose 266 H Calcium 8.4 L 06/14/18 06/14/18 06/15/18 17:34 19:29 06:54 Sodium 139 Potassium 4.3 Chloride 104 Carbon Dioxide 28.4 Anion Gap 7 BUN 15 Creatinine 1.51 H Estimated GFR 45 L POC Glucose 245 H 260 H Random Glucose 248 H Calcium 8.3 L 06/15/18 06/15/18 08:17 12:14 Sodium Potassium Chloride Carbon Dioxide Anion Gap BUN Creatinine Estimated GFR POC Glucose 252 H 271 H Random Glucose Calcium Imaging: ITS Impressions Chest X-Ray 06/10/18 11:03 CONCLUSION: Cardiac silhouette enlargement. Lungs clear. Soft Tissue Neck CT 06/10/18 11:03 CONCLUSION: 1. 2 cm thick-walled cystic mass or abscess in the left parotid gland with adjacent inflammatory change. 2. Severe degenerative findings of the cervical spine. Needle Aspiration US 06/13/18 00:00 CONCLUSION: 1. Ultrasound-guided aspiration of left periparotid complex cystic lesion yielding approximately 5 cc of bloody fluid. Procedure was terminated secondary to patient's symptoms with approximately an additional 5 cc of residual volume. Physical Exam: GENERAL: Patient in no acute distress SKIN: Cool and dry, no generalized rash HEAD: Atraumatic. Normocephalic. No temporal or scalp tenderness. EYES: Pupils equal round and reactive. Scleral icterus. No injection or drainage. No petechia ENT: Left parotid area swelling noted, firm. Nontender. NECK: Trachea midline. Supple, nontender, no meningeal signs. CARDIOVASCULAR: HS audible. RESPIRATORY: Clear to auscultation bilaterally. GASTROINTESTINAL: Abdomen soft nontender. MUSCULOSKELETAL: Extremities without clubbing, cyanosis. NEUROLOGICAL: Alert oriented 3. Nonfocal. PSYCH: Calm, cooperative IV line sites ok. Assessment and Plan - Plan Parotid gland mass -squamous cell carcinoma. Status post multiple courses of IV as well as oral antibiotics. Renal cell carcinoma under observation with no chemoradiation therapy so far. Recs: Stop Zosyn. Requests oncology evaluation. Follow clinical course. Discussed with . Will sign off. Please call if further input is needed.
[2018-06-16] MEDS: Levothyroxine 150 MCG Tablet PO SCH (05:36)
[2018-06-16 06:32] LABS: Baso % (Auto) 0.2 % (0.0-2.0); Eos % (Auto) 0.9 % (0.0-4.0); Hemoglobin 12.3 gm/dL (13.0-17.0); Lymph # (Auto) 0.7 th/mm3 (1.0-4.8); Lymph % (Auto) 16.7 % (9.0-44.0); Mean Corpuscular HGB Conc 32.4 % (32.0-36.0); Mean Corpuscular Hemoglobin 25.6 pg (27.0-34.0); Mean Corpuscular Volume 78.9 fL (80.0-100.0); Mean Platelet Volume 8.3 fL (7.0-11.0); Mono # (Auto) 0.3 th/mm3 (0.0-0.9); Neut % (Auto) 74.2 % (16.0-70.0); Platelet Count 139 th/mm3 (150-450); Red Blood Count 4.82 mil/mm3 (4.50-5.90); Red Cell Distribution Width 18.9 % (11.6-17.2)
[2018-06-16 06:37] LABS: INR 1.5 Ratio; Prothrombin Time 14.7 sec (9.8-11.6)
[2018-06-16 07:10] LABS: Calcium 8.6 mg/dL (8.5-10.1); Carbon Dioxide 29.6 meq/L (21.0-32.0); Potassium 4.1 meq/L (3.5-5.1)
--- NOTE | 2018-06-16 09:10 | P.CON ---
History of Present Illness Service: Hematology/oncology. Consult date: 06/16/18 Reason for Consult: Left parotid gland squamous cell carcinoma. Primary Care Provider: UNKNOWN Chief Complaint: Pain and swelling on the left side of the face. History of Present Illness: Mr. Pinto is a very pleasant 78-year-old male, he has multiple medical comorbid conditions which are outlined below. The patient is blind in both eyes , he lives at home with his girlfriend. He has adult children all of whom live in [place]. The patient reports having had a mass which has been gradually enlarging over the the past 4 or 5 months. He tells me the mass at times gets larger very quickly and then shrinks, on occasions it turns red and tender. He was recently referred to ENT and was initially assessed to have parotiditis with possible parotid abscess formation. He was recommended hospitalization for IV antibiotic therapy. The patient was therefore referred to [facility], he was seen on 06/11/[address] Stoll of ENT surgery. Dr. Stoll recommended CT imaging of the soft tissues of the neck which revealed inflammatory changes and suspected abscess of the left parotid gland. IV antibiotics and image guided aspiration/biopsy were recommended. The studies were performed, patient was found on needle aspiration to have cytology consistent with squamous cell carcinoma. It should be noted that the CT imaging of the neck revealed no evidence of pathologically enlarged submandibular, preauricular or cervical lymphadenopathy. The oncology service is been asked to see him to help coordinate further care. Review of Systems Constitutional: Reports fever(s), Reports headache(s) Eyes: Reports other Comments: Blind in both eyes. Ears, Nose, Mouth, and Throat: Denies change in voice, Denies neck lump Comments: Lump on the side of the left face. Cardiovascular: Denies chest pain, Denies shortness of breath Respiratory: Denies cough Gastrointestinal: Denies abdominal pain, Denies black, tarry stools, Denies vomiting blood Genitourinary: Denies blood in urine Musculoskeletal: Denies decreased muscle mass Skin/Breast: Denies sores Neurologic: Reports loss of vision, Denies abnormal hearing, Denies frequent falls, Denies headache(s), Denies memory loss, Denies numbness, Denies tremor(s) Psychiatric: Reports anxiety, Denies abnormal sleep pattern Endocrine: Denies cold intolerance Hematologic/Lymphatic: Denies easy bleeding Allergic/Immunologic: Denies GI upset with certain foods PMFSH - History History Provided By: Patient - Medical History Medical History: Medical History (Last Updated 06/16/18 @ 09:02 by Dima Wilkerson MD) Primary parotid gland squamous cell carcinoma Afib Blind Blockage of kidney vein Diabetes Hyperlipidemia Hypertension Hypothyroidism Kidney carcinoma Renal artery stenosis - Surgical History Surgical History: Surgical History (Last Reviewed 06/16/18 @ 09:02 by Dima Wilkerson MD) History of cholecystectomy S/P CABG x 2 - Family History Family History: Family History (Last Reviewed 06/16/18 @ 09:02 by Dima Wilkerson MD) Other Coronary artery disease - Social History I have reviewed the patient's Social History: Yes - Tobacco History Second Hand Smoke Exposure: Yes Tobacco Use In Past 30 Days: Yes Smoking Status: Former smoker Tobacco Type: Cigarettes - Alcohol History How Often Do You Have a Drink Containing Alcohol: 2 to 4 times a month - Substance Use History Substance History: No History of Abuse - Travel History Recent Travel in the [place] Within the Last 8 Weeks: No Recent Travel Out of the Country Within the Last 8 Weeks: No - Immunization History Tetanus Immunization: <5 Years Hx Influenza Vaccine This Season: Yes Medications and Allergies Active Medications: Active Medications Acetaminophen (Tylenol) 650 mg PO Q4H PRN PRN Reason: PAIN 1-10 AND/OR FEVER >101F Hydrocodone Bitart/Acetaminophen (Steedman 7.5/325) 1 tab PO Q4H PRN PRN Reason: PAIN SCALE 6 TO 10 Last Admin: 06/12/18 12:47 Dose: 1 tab Hydrocodone Bitart/Acetaminophen (Steedman 5/325) 1 tab PO Q4H [facility] Last Admin: 06/16/18 05:36 Dose: 1 tab Al Hydroxide/Mg Hydroxide (Milk Of Magnmarques Liq) 30 ml PO Q12H PRN PRN Reason: Mild Constipation Atorvastatin Calcium (Lipitor) 80 mg PO DAILY [facility] Last Admin: 06/15/18 10:24 Dose: 80 mg Bisacodyl (Dulcolax Supp) 10 mg RECTAL DAILY PRN PRN Reason: SEVERE CONSITIPATION Carvedilol (Coreg) 25 mg PO BID [facility] Last Admin: 06/15/18 20:41 Dose: 25 mg Dextrose (D50w Vial) 50 ml IV.PUSH UNSCH PRN PRN Reason: PER HYPOGLYCEMIA PROTOCOL Furosemide (Lasix) 20 mg PO DAILY [facility] Last Admin: 06/15/18 10:25 Dose: 20 mg Glucagon (Glucagon Inj) 1 mg OTHER UNSCH PRN PRN Reason: for Hypoglycemia Protocol Insulin Aspart (Novolog Insulin Correctional Sugar Inj) 0 unit SQ ACHS [facility]; Protocol Last Admin: 06/15/18 20:42 Dose: 3 unit Insulin Detemir (Levemir Inj) 30 unit SQ BID [facility] Last Admin: 06/15/18 20:41 Dose: 30 unit Lactulose (Lactulose Liq) 30 ml PO DAILY PRN PRN Reason: SEVERE CONSITIPATION Levothyroxine Sodium (Synthroid) 150 mcg PO 0600 [facility] Last Admin: 06/16/18 05:36 Dose: 150 mcg Lisinopril (Prinivil) 40 mg PO DAILY [facility] Last Admin: 06/15/18 10:24 Dose: 40 mg Morphine Sulfate (Morphine Inj) 4 mg IV.PUSH Q3H PRN PRN Reason: BREAKTHROUGH PAIN Naloxone HCl (Narcan Inj) 0.4 mg IV.PUSH UNSCH PRN PRN Reason: SEE LABEL COMMENTS Ondansetron HCl (Zofran Inj) 4 mg IV.PUSH Q6H PRN PRN Reason: nausea or vomiting Last Admin: 06/14/18 22:00 Dose: 4 mg Pom:(Carteolol [ (Carteolol] 1 Drp)) 0 each LEFT EYE BID [facility] Last Admin: 06/15/18 21:03 Dose: 1 each Prednisolone Acetate (Pred Forte 1% Opth Susp) 1 drop RIGHT EYE TID [facility] Last Admin: 06/15/18 17:10 Dose: 1 drop Sennosides (Senokot) 17.2 mg PO Q12H PRN PRN Reason: Moderate Constipation Sodium Chloride (Ns Flush) 2 ml IV.FLUSH BID [facility] Last Admin: 06/15/18 21:04 Dose: 2 ml Sodium Chloride (Ns Flush) 2 ml IV.FLUSH PRN PRN PRN Reason: FLUSH AFTER USING IV ACCESS Warfarin Sodium (Coumadin) 6 mg PO DAILY@1600 [facility] Last Admin: 06/15/18 17:08 Dose: 6 mg Allergies Allergy/AdvReac Type Severity Reaction Status Date / Time Sulfa (Sulfonamide Allergy Mild unknown Verified 06/10/18 10:52 Antibiotics) Home Medications Medication Instructions Recorded Confirmed Type Saccharomyces boulardii [Florastor] 250 mg PO DAILY 05/25/18 06/10/18 History carvedilol 25 mg PO BID 05/25/18 06/10/18 History lisinopril 40 mg PO DAILY 05/25/18 06/10/18 History metformin 500 mg PO BID 05/25/18 06/10/18 History warfarin 5 mg PO DIRECTED 05/25/18 06/10/18 History carteolol 1 drp LEFT EYE BID 05/26/18 06/10/18 History empagliflozin [Jardiance] 12.5 mg PO QAM 05/26/18 06/10/18 History furosemide 20 mg PO DAILY 05/26/18 06/10/18 History insulin glargine [Lantus U-100 60 unit SUBCUT HS 05/26/18 06/10/18 History Insulin] levothyroxine 150 mcg PO 0600 05/26/18 06/10/18 History nitroglycerin 0.4 mg SUBLINGUAL Q5-15M PRN 05/26/18 06/10/18 History prednisolone acetate 1 drp RIGHT EYE TID 05/26/18 06/10/18 History rosuvastatin 40 mg PO DAILY 05/26/18 06/10/18 History warfarin 7.5 mg PO 3XW 06/10/18 06/10/18 History Physical Exam Vital signs: Vital Signs 06/15/18 12:00 06/15/18 16:00 06/15/18 20:00 Temperature 97.7 F 97.7 F 97.4 F L Pulse Rate 80 74 60 Respiratory Rate 18 18 17 Blood Pressure 170/93 H 130/88 130/66 Pulse Oximetry 95 95 98 06/15/18 20:28 06/15/18 23:48 06/16/18 00:00 Temperature 97.3 F L Pulse Rate 59 L 67 74 Respiratory Rate 17 Blood Pressure 137/77 Pulse Oximetry 97 06/16/18 03:29 06/16/18 04:00 06/16/18 07:50 Temperature 97.6 F Pulse Rate 63 Respiratory Rate 18 18 18 Blood Pressure 122/88 Pulse Oximetry 97 Intake & Output 06/15/18 06/16/18 06/16/18 18:59 06:59 18:59 Intake Total 820 / 820 360 / 360 Output Total 600 / 600 900 / 900 Balance 220 / 220 -540 / -540 Weight 103.8 kg Intake: IV 100 / 100 Zosyn 4.5 GM Premix 4.5 gm In 100 / 100 100 ml @ 200 mls/hr IV.SIG Q6H SNOW Rx#:[id number] Oral 720 / 720 360 / 360 Output: Urine 600 / 600 900 / 900 Other: Date of Last Bowel Movement 06/15/18 # Bowel Movements 1 Narrative: Elderly male, sitting up in bed, appears to be no acute distress. He has a pleasant disposition. HEENT: Head atraumatic normal cephalic, conjunctivae are non-pale, sclerae are anicteric. Right eye: Cornea and iris are completely opacified. Left eye: No pupillary reflex. Left parotid gland: Firm mass which is partially movable involving the preauricular area. No masses along the right side of the face or in the or the right parotid gland area. No cervical lymphadenopathy. Oral exam: No masses, no ulceration, poor dentition. Respiratory: Good air movement bilaterally not breath sounds. Cardiovascular: Irregular rhythm, S1-S2 no obvious murmurs rubs gallops. Abdominal exam: Protuberant belly, soft and nontender nondistended palpable organ enlargement. Lower extremities: No pretibial edema no calf tenderness. BOAT FUELER: No musculoskeletal motor deficits. Other than blindness there are no sensory deficits noted. Muscular skeletal: Adequate muscle mass, tone and strength. Assessment and Plan - Plan Mr. 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 Based on CT scan performed on 06/10/2018, the cystic lesion within the left parotid gland measures up to 2.5 cm. There is no radiographic evidence of pathologic juan m enlargement on the scan or on clinical examination. Diagnosis was established on needle aspiration of the left parotid gland mass/cystic lesion. I would assess the patient to have T2 N0 M0 disease; stage II disease based on the AJCC 8th edition TNM staging system. NCCN guidelines were reviewed; based on the radiographic findings and clinical findings the patient should be evaluated for first-line surgical intervention with resection of the primary tumor and sampling of the lymph nodes in the juan m basin. Pathologic findings help determine if the patient may require postoperative radiation. Typically systemic chemotherapy does not play a role in management of parotid gland malignancies especially smaller and localized lesions which are not associated with pathologic lymphadenopathy. Recommendations: 1. 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 Advised outpatient evaluation by ENT oncology, given his significant medical comorbid conditions I would advise he be referred to an academic center such as the [facility] in [place] or the [facility]. The centers have the ability to perform complex surgical resections of ENT malignancies with microvascular reconstruction if required. I did student assistance counselor the patient and his girlfriend about this. I did also speak to the primary team. Typically these referrals are set up in the outpatient setting. For my part, I will try to arrange outpatient follow-up And will also contact the patient's PCP at [facility] in [place] though help facilitate and expedite the referrals.
[2018-06-16] MEDS: Insulin NovoLOG Aspart Correctional Sugar Inj SQ SCH ×4 (09:12→21:36)
[2018-06-16] MEDS: Lisinopril 20 MG Tablet PO SCH (09:12)
[2018-06-16] MEDS: Carvedilol 12.5 MG Tablet PO SCH ×2 (09:12→21:36)
[2018-06-16] MEDS: Furosemide 20 MG Tablet PO SCH (09:13)
[2018-06-16] MEDS: [UNRECOGNIZED DRUG - OTHER] LEFT EYE SCH ×2 (09:24→21:39)
[2018-06-16] MEDS: Sodium Chloride 0.9% 2 ML Flush BID IV.FLUSH SCH ×2 (09:24→21:36)
[2018-06-16] MEDS: prednisoLONE Acetate 1% Opth Susp 5 ML Bottle RIGHT EYE SCH ×3 (09:24→17:28)
[2018-06-16] MEDS: Insulin Detemir Inj 1,000 UNIT/10 ML Vial SQ SCH ×2 (09:24→21:37)
[2018-06-16] MEDS ORDERED: DESMOPRESSIN NASAL PRN (11:00)
--- NOTE | 2018-06-16 11:35 | P.PNFP ---
Addendum entered and electronically signed by Zora Burr MD, R1 06/16/18 16:05: Patient was set up for discharge, but complained of sore throat and difficulty swallowing. Was given steroids and kept overnight for observation. Addendum entered and electronically signed by Zora Burr MD, R1 06/16/18 15:19: Patient was eforced and had one prescription filled 06/06 for 12 tabs of Percocet. Prescription ordered for Percocet q 4 hrs for 3 days upon discharge for acute pain. Original Note: Subjective Interval history: Patient complains of some throat pain this morning. He said when he lays down he feels like pressure on the back of the throat but no difficulty breathing or swallowing. It is somewhat painful to swallow. He said he slept well last night. He notes that his cheek and neck seem to have a little more hardness to touch. He was told of his cancer diagnosis yesterday but not the type or prognosis. Team discussed with the patient and girlfriend the finding of squamous cell cancer and the referral to the oncologist for staging and treatment. Answered their questions about possible inpatient or outpatient follow-up, stopping of antibiotics, and different treatment techniques. <Zora Burr - 06/16/18 11:35> Results - Labs Result diagrams: 06/16/18 05:30 06/16/18 05:30 <Martin Malone - 06/16/18 19:34> Abnormal lab results 06/15/18 06/16/18 06/16/18 Range/Units 19:38 05:30 05:30 Hgb 12.3 L (13.0-17.0) gm/dL Hct 38.0 L (39.0-51.0) % MCV 78.9 L (80.0-100.0) fL MCH 25.6 L (27.0-34.0) pg RDW 18.9 H (11.6-17.2) % Plt Count 139 L (150-450) th/mm3 Neut % (Auto) 74.2 H (16.0-70.0) % Lymph # (Auto) 0.7 L (1.0-4.8) th/mm3 PT (9.8-11.6) sec BUN 19 H (7-18) mg/dL Creatinine 1.47 H (0.60-1.30) mg/dL Estimated GFR 46 L (>89) mL/min POC Glucose 226 H (68-110) mg/dl Random Glucose 139 H D (74-106) mg/dL 06/16/18 06/16/18 06/16/18 Range/Units 05:30 12:55 17:22 Hgb (13.0-17.0) gm/dL Hct (39.0-51.0) % MCV (80.0-100.0) fL MCH (27.0-34.0) pg RDW (11.6-17.2) % Plt Count (150-450) th/mm3 Neut % (Auto) (16.0-70.0) % Lymph # (Auto) (1.0-4.8) th/mm3 PT 14.7 H (9.8-11.6) sec BUN (7-18) mg/dL Creatinine (0.60-1.30) mg/dL Estimated GFR (>89) mL/min POC Glucose 177 H 178 H (68-110) mg/dl Random Glucose (74-106) mg/dL Short CBC 06/16/18 Range/Units 05:30 WBC 4.0 (4.0-11.0) th/mm3 Hgb 12.3 L (13.0-17.0) gm/dL Hct 38.0 L (39.0-51.0) % Plt Count 139 L (150-450) th/mm3 BMP 06/16/18 05:30 Sodium 140 Potassium 4.1 Chloride 105 Carbon Dioxide 29.6 BUN 19 H Creatinine 1.47 H Calcium 8.6 <Young,Martin L - 06/16/18 19:34> Abnormal lab results 06/15/18 06/15/18 06/15/18 Range/Units 12:14 16:44 19:38 Hgb (13.0-17.0) gm/dL Hct (39.0-51.0) % MCV (80.0-100.0) fL MCH (27.0-34.0) pg RDW (11.6-17.2) % Plt Count (150-450) th/mm3 Neut % (Auto) (16.0-70.0) % Lymph # (Auto) (1.0-4.8) th/mm3 PT (9.8-11.6) sec BUN (7-18) mg/dL Creatinine (0.60-1.30) mg/dL Estimated GFR (>89) mL/min POC Glucose 271 H 305 H 226 H (68-110) mg/dl Random Glucose (74-106) mg/dL 06/16/18 06/16/18 06/16/18 Range/Units 05:30 05:30 05:30 Hgb 12.3 L (13.0-17.0) gm/dL Hct 38.0 L (39.0-51.0) % MCV 78.9 L (80.0-100.0) fL MCH 25.6 L (27.0-34.0) pg RDW 18.9 H (11.6-17.2) % Plt Count 139 L (150-450) th/mm3 Neut % (Auto) 74.2 H (16.0-70.0) % Lymph # (Auto) 0.7 L (1.0-4.8) th/mm3 PT 14.7 H (9.8-11.6) sec BUN 19 H (7-18) mg/dL Creatinine 1.47 H (0.60-1.30) mg/dL Estimated GFR 46 L (>89) mL/min POC Glucose (68-110) mg/dl Random Glucose 139 H D (74-106) mg/dL Short CBC 06/16/18 Range/Units 05:30 WBC 4.0 (4.0-11.0) th/mm3 Hgb 12.3 L (13.0-17.0) gm/dL Hct 38.0 L (39.0-51.0) % Plt Count 139 L (150-450) th/mm3 BMP 06/16/18 05:30 Sodium 140 Potassium 4.1 Chloride 105 Carbon Dioxide 29.6 BUN 19 H Creatinine 1.47 H Calcium 8.6 <Zora Burr - 06/16/18 11:35> Physical Exam Vital signs: Vital Signs 06/15/18 20:00 06/15/18 20:28 06/15/18 23:48 Temperature 97.4 F L Pulse Rate 60 59 L 67 Respiratory Rate 17 Blood Pressure 130/66 Pulse Oximetry 98 06/16/18 00:00 06/16/18 03:29 06/16/18 04:00 Temperature 97.3 F L 97.6 F Pulse Rate 74 63 Respiratory Rate 17 18 18 Blood Pressure 137/77 122/88 Pulse Oximetry 97 97 06/16/18 07:50 06/16/18 08:00 06/16/18 12:00 Temperature 97.2 F L 97.5 F L Pulse Rate 92 H 86 Respiratory Rate 18 20 20 Blood Pressure 183/96 H 148/75 H Pulse Oximetry 95 94 L 06/16/18 17:27 06/16/18 17:43 Temperature Pulse Rate Respiratory Rate Blood Pressure 120/60 Pulse Oximetry 96 Intake & Output 06/16/18 06/16/18 06/17/18 06:59 18:59 06:59 Intake Total 360 / 360 560 / 560 Output Total 900 / 900 600 / 600 Balance -540 / -540 -40 / -40 Weight 103.8 kg Intake: Oral 360 / 360 560 / 560 Output: Urine 900 / 900 600 / 600 Other: Date of Last Bowel Movement 06/15/18 # Bowel Movements 1 <Martin Malone L - 06/16/18 19:34> Vital Signs 06/15/18 12:00 06/15/18 16:00 06/15/18 20:00 Temperature 97.7 F 97.7 F 97.4 F L Pulse Rate 80 74 60 Respiratory Rate 18 18 17 Blood Pressure 170/93 H 130/88 130/66 Pulse Oximetry 95 95 98 06/15/18 20:28 06/15/18 23:48 06/16/18 00:00 Temperature 97.3 F L Pulse Rate 59 L 67 74 Respiratory Rate 17 Blood Pressure 137/77 Pulse Oximetry 97 06/16/18 03:29 06/16/18 04:00 06/16/18 07:50 Temperature 97.6 F Pulse Rate 63 Respiratory Rate 18 18 18 Blood Pressure 122/88 Pulse Oximetry 97 06/16/18 08:00 Temperature 97.2 F L Pulse Rate 92 H Respiratory Rate 20 Blood Pressure 183/96 H Pulse Oximetry 95 Intake & Output 06/15/18 06/16/18 06/16/18 18:59 06:59 18:59 Intake Total 820 / 820 360 / 360 Output Total 600 / 600 900 / 900 Balance 220 / 220 -540 / -540 Weight 103.8 kg Intake: IV 100 / 100 Zosyn 4.5 GM Premix 4.5 gm In 100 / 100 100 ml @ 200 mls/hr IV.SIG Q6H SNOW Rx#:[id number] Oral 720 / 720 360 / 360 Output: Urine 600 / 600 900 / 900 Other: Date of Last Bowel Movement 06/15/18 # Bowel Movements 1 <Zora Burr - 06/16/18 11:35> Narrative: Elderly male, sitting up in bed, appears to be no acute distress. He has a pleasant disposition. HEENT: Head atraumatic normal cephalic, conjunctivae are non-pale, sclerae are anicteric. Right eye: Cornea and iris are completely opacified. Left eye: No pupillary reflex. Left parotid gland: Firm mass which is partially movable involving the preauricular area. Light erythema. Mass measuring [id number]. cervical lymph node palpable. No masses along the right side of the face or in the or the right parotid gland area. Oral exam: No masses, no ulceration, poor dentition. Dentures of upper jaw. No drainage from the duct. Uvula midline. Respiratory: Good air movement bilaterally not breath sounds. Cardiovascular: Irregular rhythm, S1-S2 no obvious murmurs rubs gallops. Abdominal exam: Protuberant belly, soft and nontender nondistended palpable organ enlargement. Lower extremities: No pretibial edema no calf tenderness. 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 Other than blindness there are no sensory deficits noted. Muscular skeletal: Adequate muscle mass, tone and strength. 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 Code(s): H54.3 - Unqualified visual loss, both eyes Status: Acute (5) Diabetes Code(s): E11.9 - Type 2 diabetes mellitus without complications Status: Acute (6) Hypertension Code(s): I10 - Essential (primary) hypertension Status: Acute (7) Hyperlipidemia Code(s): E78.5 - Hyperlipidemia, unspecified Status: Acute (8) Hypothyroidism Code(s): E03.9 - Hypothyroidism, unspecified Status: Acute (9) Nutrition, metabolism, and development symptoms Code(s): R63.8 - Other symptoms and signs concerning food and fluid intake Status: Acute <Martin Malone - 06/16/18 19:34> (1) Mass of parotid gland Code(s): K11.9 - Disease of salivary gland, unspecified Status: Acute Plan: Left parotid abscess based on CT findings, however has had several I&D with recurrence Head CT 05/25/18: 2.5 cm left facial abscess or necrotic mass in the anterior left parotid with surrounding edema or inflammatory change. Soft tissue neck CT 06/10/18: 2 cm thick-walled cystic mass or abscess in the left parotid gland with adjacent inflammatory change Left facial swelling appears stable, measured to be 4.5 cm x 5 cm Blood cultures no growth after five days -ENT consulted, f/u recs; patient previously seen by Dr. Stoll Recommended ID consult for further evaluation of fluid and treatment. Was treated with vancomycin and Zosyn. Discontinued after pathology results. Pt s/p US guided full aspiration of cystic fluid by IR (06/13). f/u cystic fluid studies results: Gram stain Rare WBC no organisms seen. Culture NG for 24 hours. Specimen shows pancytopenia ddx infection/drug/ nutrition/stress Pathology: malignant cells consistent with squamous cell carcinoma -Oncology consulted: Believes patient has T2 N0 M0 stage II. Advised outpatient evaluation by ENT oncology, given his significant medical comorbid conditions I would advise he be referred to an academic center such as the [facility] in [place] or the [facility]. The centers have the ability to perform complex surgical resections of ENT malignancies with microvascular reconstruction if required. (2) A-fib Code(s): I48.91 - Unspecified atrial fibrillation Status: Acute Plan: Patient has history of atrial fibrillation (on Coumadin). EKG on admission showed atrial fibrillation that was not appreciated on physical exam. Patient is currently rate controlled. Will increase warfarin to home regimen 7.5 MWF and 5 mg S,T,T,S po Continue to monitor INR (3) Glaucoma Code(s): H40.9 - Unspecified glaucoma Status: Acute Plan: Patient history significant for glaucoma in both eyes. Patient previously had surgery but is ultimately blind in both eyes. 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 Patient blind in both eyes. -Please use precaution as patient is visually impaired (5) Diabetes Code(s): E11.9 - Type 2 diabetes mellitus without complications Status: Acute Plan: Patient known type II diabetic on metformin, Lantus, and Empagliflozin. Required additional 20 units yesterday. -Hold home medications -Continue Levemir 30 units twice daily and consider increasing basal dosing. -Continue with low-dose sliding scale -Hypoglycemia protocol in place (6) Hypertension Code(s): I10 - Essential (primary) hypertension Status: Acute Plan: Continue home lisinopril, carvedilol, and furosemide Continue to monitor VS (7) Hyperlipidemia Code(s): E78.5 - Hyperlipidemia, unspecified Status: Acute Plan: Continue home rosuvastatin (8) Hypothyroidism Code(s): E03.9 - Hypothyroidism, unspecified Status: Acute Plan: Continue home levothyroxine 150 mcg po daily (9) Nutrition, metabolism, and development symptoms Code(s): R63.8 - Other symptoms and signs concerning food and fluid intake Status: Acute Plan: Fluids: Not indicated at this time Electrolytes: Replete as needed Nutrition: Diabetic diet DVT prophylaxis: Coumadin Disposition: home today or tomorrow with outpatient follow up (PCP and surgery referral) <Zora Burr - 06/16/18 14:58> - Attending Attestation The exam, history, and the medical decision-making described in the above note were completed with the assistance of the resident physician. I reviewed and agree with the findings presented. I attest that I had a [id number] encounter with the patient on the same day, and personally performed and documented my assessment and findings in the medical record. 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 This has been explained to him in detail. Discharge planning explained to him at length. He needs surgical resection at a tertiary center such as [facility] or [facility]. [facility]iscussed that [facility] We are keeping him overnight as he is feeling sore throat and swelling around his throat that was not present before. I do not see anything suggestive of a cause on physical exam. Pharynx and uvula appear normal. The parotid gland and neck swelling from before appear the same on exam. Will give steroid to help with inflammation. Not having dysphagia or dyspnea at this time. 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 Diabetes mellitus complication status: without complication Qualified Code(s): E11.9 - Type 2 diabetes mellitus without complications (6) Hypertension Qualifiers: Hypertension type: essential hypertension Qualified Code(s): I10 - Essential (primary) hypertension (7) Hyperlipidemia Qualifiers: Hyperlipidemia type: unspecified Qualified Code(s): E78.5 - Hyperlipidemia, unspecified <Martin Malone - Last Filed: 06/16/18 19:34> (5) Diabetes Qualifiers: Diabetes mellitus type: type 2 Diabetes mellitus 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: without prison use Diabetes mellitus complication status: without complication Qualified Code(s): E11.9 - Type 2 diabetes mellitus without complications (6) Hypertension Qualifiers: Hypertension type: essential hypertension Qualified Code(s): I10 - Essential (primary) hypertension (7) Hyperlipidemia Qualifiers: Hyperlipidemia type: unspecified Qualified Code(s): E78.5 - Hyperlipidemia, unspecified <Zora Burr - Last Filed: 06/16/18 14:58> (5) Diabetes Qualifiers: Diabetes mellitus type: type 2 Diabetes mellitus 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: without intermediate school teacher use Diabetes mellitus complication status: without complication Qualified Code(s): E11.9 - Type 2 diabetes mellitus without complications (6) Hypertension Qualifiers: Hypertension type: essential hypertension Qualified Code(s): I10 - Essential (primary) hypertension (7) Hyperlipidemia Qualifiers: Hyperlipidemia type: unspecified Qualified Code(s): E78.5 - Hyperlipidemia, unspecified <Martin Malone - Last Filed: 06/16/18 19:34> (5) Diabetes Qualifiers: Diabetes mellitus type: type 2 Diabetes mellitus prison insulin use: without intermediate school teacher use Diabetes mellitus complication status: without complication Qualified Code(s): E11.9 - Type 2 diabetes mellitus without complications (6) Hypertension Qualifiers: Hypertension type: essential hypertension Qualified Code(s): I10 - Essential (primary) hypertension (7) Hyperlipidemia Qualifiers: Hyperlipidemia type: unspecified Qualified Code(s): E78.5 - Hyperlipidemia, unspecified
--- NOTE | 2018-06-16 16:00 | P.DS ---
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 Patient reports that approximately 4 weeks ago the patient went camping and upon awakening noticed a grape sized hard mass on the left cheek. At the time there was no signs of a tick or spider bite in the area. Since then the mass has continued to grow and continues to be hard and at times appeared very red. Patient reports that approximately 2 weeks ago the patient sought medical attention and was admitted at [facility]. He was placed on IV vancomycin and Flagyl while inpatient as well as had an outpatient course of Keflex and clindamycin with no resolve. Patient reports that 2 weeks ago he had a biopsy of the area that revealed a very dark brown fluid that ultimately showed no cancerous pathology. Another biopsy was done 1 week ago that produced a pink to yellow fluid. Patient reports that over the last 2 weeks the area has grown and is now spreading to just below his left jaw. During the last 2 weeks he is also had intermittent fevers ranging from 102-99 degrees and has experienced what he describes as a dull ache in his left eye that is intermittent and self resolves. This ache happens 1-2 times a day with no exacerbating relieving factors. Patient also reports that it is painful to open his mouth all the way and that chewing bothers him. He denies any dysphagia or odynophagia but has experience numbness in his throat. Patient denies having any neck stiffness or any redness or swelling around the eye. Patient does report that over the last 2 weeks he has had malodorous watery diarrhea. He endorses some nausea without vomiting. He denies any chest pain, shortness of breath, abdominal pain, or urinary symptoms but does report decreased urinary frequency as well as darker urine. 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 Meds: Warfarin, probiotics, florastor, metformin, lisinopril, carvedilol, prednisolone, nitroglycerin, carteolol, glargine, rosuvastatin, and empagliflozin, furosemide, levothyroxine Surgical Hx: Glaucoma surgery in 2016, cholecystectomy 2014, quadruple bypass surgery 84 and 89, stent in 2009 FHx: Dad passed from [place] and [place] at 69, Mom passed in her 70s unknown cause Social: [employer] 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 3 children alive and healthy, oldest son 54 years old. 15 pack year quict at 34 yars old. 2-3 beers a month Allergies: Sulfa, lactose intolerant. Code: Full code DS: Diagnosis - Discharge Diagnosis (1) Mass of parotid gland Status: Acute (2) A-fib Status: Acute (3) Glaucoma Status: Acute (4) Blind in both eyes Status: Acute (5) Diabetes Status: Acute (6) Hypertension Status: Acute (7) Hyperlipidemia Status: Acute (8) Hypothyroidism Status: Acute (9) Nutrition, metabolism, and development symptoms Status: Acute DS: Medications - Discharge Medications Prescriptions: oxycodone-acetaminophen [Percocet] 1 tab PO Q4HR #18 tab DS: Summary Hospital Course: Patient presented with left cheek swelling. Had previously failed inpatient IV vanc and flagyl followed by outpatient Keflex and clindamycin treatment. On this admission, head CT 05/25/18: 2.5 cm left facial abscess or necrotic mass in the anterior left parotid with surrounding edema or inflammatory change. Soft tissue neck CT 06/10/18: 2 cm thick-walled cystic mass or abscess in the left parotid gland with adjacent inflammatory change. Blood cultures no growth after five days. ENT was consulted, recommended ID consult for further evaluation of fluid and treatment. Was treated with vancomycin and Zosyn. Patient had US guided full aspiration of cystic fluid by IR (06/13). Cystic fluid studies results: Gram stain Rare WBC no organisms seen. Culture NG for 24 hours. Specimen shows pancytopenia ddx infection/drug/nutrition/stress. Pathology: malignant cells consistent with squamous cell carcinoma. Discontinued antibiotics after pathology results. Oncology consulted: Believes patient has T2 N0 M0 stage II. Advised outpatient evaluation by ENT oncology, given his significant medical comorbid conditions I would advise he be referred to an academic center such as the [facility] in [place] or the [facility]. The centers have the ability to perform complex surgical resections of ENT malignancies with microvascular reconstruction if required. Before 06/13 procedure, patient was taken off his home coumadin. Coumadin was restarted after procedure. Patient was prescribed Percocet q 4hrs PRN acute pain (18 total pills for 3 day course). PCP please monitor INR to make sure it returns to therapeutic range. At discharge INR 1.5. Patient was asked to follow up with Dr. Alegria in 2-3 days and request referral to surgeon at ENT oncology at major academic institution such as [place] or [facility] for parotid squamous cell carcinoma. Patient was also given referral for Dr. Dima Wilkerson, oncology, to see him outpatient in 2-4 weeks. - Time Spent with Patient Total time spent providing and/or coordinating discharge services: Greater than 30 minutes - Quality: VTE Deep Vein Thrombosis/Pulmonary Embolism Present on Admission: No Exam Vital signs: Vital Signs 06/15/18 16:00 06/15/18 20:00 06/15/18 20:28 Temperature 97.7 F 97.4 F L Pulse Rate 74 60 59 L Respiratory Rate 18 17 Blood Pressure 130/88 130/66 Pulse Oximetry 95 98 06/15/18 23:48 06/16/18 00:00 06/16/18 03:29 Temperature 97.3 F L Pulse Rate 67 74 Respiratory Rate 17 18 Blood Pressure 137/77 Pulse Oximetry 97 06/16/18 04:00 06/16/18 07:50 06/16/18 08:00 Temperature 97.6 F 97.2 F L Pulse Rate 63 92 H Respiratory Rate 18 18 20 Blood Pressure 122/88 183/96 H Pulse Oximetry 97 95 06/16/18 12:00 Temperature 97.5 F L Pulse Rate 86 Respiratory Rate 20 Blood Pressure 148/75 H Pulse Oximetry 94 L Intake & Output 06/15/18 06/16/18 06/16/18 18:59 06:59 18:59 Intake Total 820 / 820 360 / 360 Output Total 600 / 600 900 / 900 Balance 220 / 220 -540 / -540 Weight 103.8 kg Intake: IV 100 / 100 Zosyn 4.5 GM Premix 4.5 gm In 100 / 100 100 ml @ 200 mls/hr IV.SIG Q6H [facility] Rx#:[id number] Oral 720 / 720 360 / 360 Output: Urine 600 / 600 900 / 900 Other: Date of Last Bowel Movement 06/15/18 # Bowel Movements 1 Narrative: Elderly male, sitting up in bed, appears to be no acute distress. He has a pleasant disposition. HEENT: Head atraumatic normal cephalic, conjunctivae are non-pale, sclerae are anicteric. Right eye: Cornea and iris are completely opacified. Left eye: No pupillary reflex. Left parotid gland: Firm mass which is partially movable involving the preauricular area. Light erythema. Mass measuring [id number]. cervical lymph node palpable. No masses along the right side of the face or in the or the right parotid gland area. Oral exam: No masses, no ulceration, poor dentition. Dentures of upper jaw. No drainage from the duct. Uvula midline. Respiratory: Good air movement bilaterally not breath sounds. Cardiovascular: Irregular rhythm, S1-S2 no obvious murmurs rubs gallops. Abdominal exam: Protuberant belly, soft and nontender nondistended palpable organ enlargement. Lower extremities: No pretibial edema no calf tenderness. 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 Other than blindness there are no sensory deficits noted. Muscular skeletal: Adequate muscle mass, tone and strength. Results Procedures completed during hospitalization: 06/13 US guided aspiration of cystic fluid surrounding parotid gland. Labs on day of discharge: Labs from last 24 hours 06/16/18 06/16/18 06/16/18 12:55 09:12 05:30 WBC RBC Hgb Hct MCV MCH MCHC RDW Plt Count MPV Neut % (Auto) Lymph % (Auto) Banner % (Auto) Eos % (Auto) Baso % (Auto) Neut # (Auto) Lymph # (Auto) Banner # (Auto) Eos # (Auto) Baso # (Auto) WBC Differential Differential Comment PT 14.7 H INR 1.5 Sodium Potassium Chloride Carbon Dioxide Anion Gap BUN Creatinine Estimated GFR POC Glucose 177 H 109 Random Glucose Calcium 06/16/18 06/16/18 06/15/18 05:30 05:30 19:38 WBC 4.0 RBC 4.82 Hgb 12.3 L Hct 38.0 L MCV 78.9 L MCH 25.6 L MCHC 32.4 RDW 18.9 H Plt Count 139 L MPV 8.3 Neut % (Auto) 74.2 H Lymph % (Auto) 16.7 Banner % (Auto) 8.0 Eos % (Auto) 0.9 Baso % (Auto) 0.2 Neut # (Auto) 3.0 Lymph # (Auto) 0.7 L Banner # (Auto) 0.3 Eos # (Auto) 0.0 Baso # (Auto) 0.0 WBC Differential . Differential Comment Auto diff final PT INR Sodium 140 Potassium 4.1 Chloride 105 Carbon Dioxide 29.6 Anion Gap 5 BUN 19 H Creatinine 1.47 H Estimated GFR 46 L POC Glucose 226 H Random Glucose 139 H D Calcium 8.6 06/15/18 16:44 WBC RBC Hgb Hct MCV MCH MCHC RDW Plt Count MPV Neut % (Auto) Lymph % (Auto) Banner % (Auto) Eos % (Auto) Baso % (Auto) Neut # (Auto) Lymph # (Auto) Banner # (Auto) Eos # (Auto) Baso # (Auto) WBC Differential Differential Comment PT INR Sodium Potassium Chloride Carbon Dioxide Anion Gap BUN Creatinine Estimated GFR POC Glucose 305 H Random Glucose Calcium - Impressions ITS Impressions Chest X-Ray 06/10/18 11:03 CONCLUSION: Cardiac silhouette enlargement. Lungs clear. Soft Tissue Neck CT 06/10/18 11:03 CONCLUSION: 1. 2 cm thick-walled cystic mass or abscess in the left parotid gland with adjacent inflammatory change. 2. Severe degenerative findings of the cervical spine. Needle Aspiration US 06/13/18 00:00 CONCLUSION: 1. Ultrasound-guided aspiration of left periparotid complex cystic lesion yielding approximately 5 cc of bloody fluid. Procedure was terminated secondary to patient's symptoms with approximately an additional 5 cc of residual volume. Discharge Plan - Discharge Disposition Patient Disposition: 01 Discharge Home - Discharge Condition Condition: Stable - Discharge Order Discharge Orders: Discharge Order (Routine); Ordered 06/16/18 Ordered By: Zora Burr - Discharge Details Anticipated Discharge Date: 06/16/18 Discharge Comment: Please follow up with Dr. Alegria in 2-3 days and request referral to surgeon at ENT oncology at major academic institution such as [place] or [facility] for parotid squamous cell carcinoma. In addition please Please make an appointment for hospital follow up with Dr. Wilkerson in 2-4 weeks. - Physicians Team Primary Care Provider: UNKNOWN, Attending Provider: Martin Malone Other Providers: Johnie Stoll MD ; Natalie Meade MD ; Dima Wilkerson MD
[2018-06-16] MEDS ORDERED: MethylPREDNISolone Sod Succinate Inj 40 MG/ML Vial IV.PUSH ONE (17:00)
[2018-06-17 01:11] VITALS: RESP 16
[2018-06-17] MEDS: Levothyroxine 150 MCG Tablet PO SCH (05:55)
[2018-06-17 06:59] LABS: Eos % (Auto) 0.1 % (0.0-4.0); Hematocrit 39.2 % (39.0-51.0); Hemoglobin 13.1 gm/dL (13.0-17.0); Lymph # (Auto) 0.3 th/mm3 (1.0-4.8); Lymph % (Auto) 5.3 % (9.0-44.0); Mean Corpuscular HGB Conc 33.4 % (32.0-36.0); Mean Corpuscular Volume 77.8 fL (80.0-100.0); Mean Platelet Volume 8.5 fL (7.0-11.0); Mono # (Auto) 0.3 th/mm3 (0.0-0.9); Mono % (Auto) 4.2 % (0.0-8.0); Neut # (Auto) 5.7 th/mm3 (1.8-7.7); Neut % (Auto) 90.4 % (16.0-70.0); Platelet Count 147 th/mm3 (150-450); Red Blood Count 5.04 mil/mm3 (4.50-5.90); Red Cell Distribution Width 19.5 % (11.6-17.2); White Blood Count 6.4 th/mm3 (4.0-11.0)
[2018-06-17 07:03] LABS: INR 1.7 Ratio; Prothrombin Time 16.9 sec (9.8-11.6)
[2018-06-17 07:25] LABS: Potassium 4.7 meq/L (3.5-5.1)
--- NOTE | 2018-06-17 07:56 | P.PN ---
Subjective Interval history: Patient with left parotid carcinoma. Was for discharge yesterday but felt some "tightness in the throat". Observed overnight. No Airway, voice or hoarseness issues now. Back to baseline. Mild hoarseness yesterday resolved. Physical Exam Vital signs: Vital Signs 06/16/18 08:00 06/16/18 12:00 06/16/18 16:00 Temperature 97.2 F L 97.5 F L Pulse Rate 92 H 84 80 Respiratory Rate 20 20 Blood Pressure 183/96 H 148/75 H Pulse Oximetry 95 94 L 06/16/18 17:27 06/16/18 17:43 06/16/18 20:00 Temperature 97.8 F Pulse Rate 93 H Respiratory Rate 17 Blood Pressure 120/60 165/89 H Pulse Oximetry 96 96 06/16/18 22:00 06/17/18 00:00 06/17/18 04:00 Temperature 97.2 F L 97.4 F L Pulse Rate 85 107 H Respiratory Rate 16 16 Blood Pressure 159/102 H 165/85 H 151/86 H Pulse Oximetry 96 94 L Intake & Output 06/16/18 06/17/18 06/17/18 18:59 06:59 18:59 Intake Total 560 / 560 720 / 720 Output Total 600 / 600 1200 / 1200 Balance -40 / -40 -480 / -480 Weight 102.8 kg Intake: Oral 560 / 560 Tube Feeding 720 / 720 Output: Urine 600 / 600 1200 / 1200 Other: # Bowel Movements 0 - Routine HEENT Exam ENT: Present: mucous membranes moist, oropharynx clear, nares patent, external ear normal (Transoral fiberoptic laryngoscopy show pharynx, hypopharynx and larynx clear. ). Absent: sinus tenderness Results - Labs CBC & Chem 7: 06/17/18 06:10 06/17/18 06:10 Laboratory Results - last 24 hr 06/16/18 06/16/18 06/16/18 09:12 12:55 17:22 WBC RBC Hgb Hct MCV MCH MCHC RDW Plt Count MPV Neut % (Auto) Lymph % (Auto) Beckham % (Auto) Eos % (Auto) Baso % (Auto) Neut # (Auto) Lymph # (Auto) Beckham # (Auto) Eos # (Auto) Baso # (Auto) WBC Differential Differential Comment PT INR Sodium Potassium Chloride Carbon Dioxide Anion Gap BUN Creatinine Estimated GFR POC Glucose 109 177 H 178 H Random Glucose Calcium 06/16/18 06/17/18 06/17/18 19:45 06:10 06:10 WBC 6.4 RBC 5.04 Hgb 13.1 Hct 39.2 MCV 77.8 L MCH 26.0 L MCHC 33.4 RDW 19.5 H Plt Count 147 L MPV 8.5 Neut % (Auto) 90.4 H Lymph % (Auto) 5.3 L Beckham % (Auto) 4.2 Eos % (Auto) 0.1 Baso % (Auto) 0.0 Neut # (Auto) 5.7 Lymph # (Auto) 0.3 L Beckham # (Auto) 0.3 Eos # (Auto) 0.0 Baso # (Auto) 0.0 WBC Differential . Differential Comment Auto diff final PT 16.9 H INR 1.7 Sodium Potassium Chloride Carbon Dioxide Anion Gap BUN Creatinine Estimated GFR POC Glucose 217 H Random Glucose Calcium 06/17/18 06:10 WBC RBC Hgb Hct MCV MCH MCHC RDW Plt Count MPV Neut % (Auto) Lymph % (Auto) Beckham % (Auto) Eos % (Auto) Baso % (Auto) Neut # (Auto) Lymph # (Auto) Beckham # (Auto) Eos # (Auto) Baso # (Auto) WBC Differential Differential Comment PT INR Sodium 137 Potassium 4.7 Chloride 102 Carbon Dioxide 26.0 Anion Gap 9 BUN 21 H Creatinine 1.30 Estimated GFR 53 L POC Glucose Random Glucose 240 H D Calcium 9.0 Microbiology 06/13/18 08:50 Abscess - Cheek Gram Stain - Final 06/13/18 08:50 Abscess - Cheek Wound Culture - Final No growth in 72 hours (aerobically and anaerobically ) - Procedures 06/13 US guided aspiration of cystic fluid surrounding parotid gland. Assessment and Plan - Plan Throat issues resolved. OK for discharge. We will help facilitate referral to academic center. Will ask our advanced practice psychiatric nurse to call the patient Tuesday and help with referral to academic center for parotid cancer. Reviewed with patient and his significant other. Reviewed with Nursing.
[2018-06-17 10:08] VITALS: BP 166/98; PULSE 100; TEMP 97.6; O2SAT 98
--- NOTE | 2018-06-17 10:19 | P.PNFP ---
Subjective Interval history: Patient examined this morning at bedside. No acute events overnight. Patient reports resolution of "throat tightening/discomfort". Denies any issues with swallowing or breathing. Denies any chest pain, dizziness, headache, shortness of breath, cough, fever, chills, nausea, vomiting or abdominal pain. Patient reports he had good p.o. intake. Pain is well controlled. Patient with slightly elevated blood pressures this morning however reports he has not taken his blood pressure medications yet this morning. Patient was evaluated this morning by ENT and had normal evaluation with laryngoscope. <Dav Whittington D - 06/17/18 13:45> Results - Labs Result diagrams: 06/17/18 06:10 06/17/18 06:10 <Martin Malone - 06/18/18 15:24> Abnormal lab results 06/16/18 06/16/18 06/16/18 Range/Units 12:55 17:22 19:45 MCV (80.0-100.0) fL MCH (27.0-34.0) pg RDW (11.6-17.2) % Plt Count (150-450) th/mm3 Neut % (Auto) (16.0-70.0) % Lymph % (Auto) (9.0-44.0) % Lymph # (Auto) (1.0-4.8) th/mm3 PT (9.8-11.6) sec BUN (7-18) mg/dL Estimated GFR (>89) mL/min POC Glucose 177 H 178 H 217 H (68-110) mg/dl Random Glucose (74-106) mg/dL 06/17/18 06/17/18 06/17/18 Range/Units 06:10 06:10 06:10 MCV 77.8 L (80.0-100.0) fL MCH 26.0 L (27.0-34.0) pg RDW 19.5 H (11.6-17.2) % Plt Count 147 L (150-450) th/mm3 Neut % (Auto) 90.4 H (16.0-70.0) % Lymph % (Auto) 5.3 L (9.0-44.0) % Lymph # (Auto) 0.3 L (1.0-4.8) th/mm3 PT 16.9 H (9.8-11.6) sec BUN 21 H (7-18) mg/dL Estimated GFR 53 L (>89) mL/min POC Glucose (68-110) mg/dl Random Glucose 240 H D (74-106) mg/dL 06/17/18 Range/Units 08:09 MCV (80.0-100.0) fL MCH (27.0-34.0) pg RDW (11.6-17.2) % Plt Count (150-450) th/mm3 Neut % (Auto) (16.0-70.0) % Lymph % (Auto) (9.0-44.0) % Lymph # (Auto) (1.0-4.8) th/mm3 PT (9.8-11.6) sec BUN (7-18) mg/dL Estimated GFR (>89) mL/min POC Glucose 343 H (68-110) mg/dl Random Glucose (74-106) mg/dL Short CBC 06/17/18 Range/Units 06:10 WBC 6.4 (4.0-11.0) th/mm3 Hgb 13.1 (13.0-17.0) gm/dL Hct 39.2 (39.0-51.0) % Plt Count 147 L (150-450) th/mm3 BMP 06/17/18 06:10 Sodium 137 Potassium 4.7 Chloride 102 Carbon Dioxide 26.0 BUN 21 H Creatinine 1.30 Calcium 9.0 <Dav Whittington D - 06/17/18 10:19> Physical Exam Vital signs: Vital Signs 06/16/18 12:00 06/16/18 16:00 06/16/18 17:27 Temperature 97.5 F L Pulse Rate 84 80 Respiratory Rate 20 Blood Pressure 148/75 H Pulse Oximetry 94 L 96 06/16/18 17:43 06/16/18 20:00 06/16/18 22:00 Temperature 97.8 F Pulse Rate 93 H Respiratory Rate 17 Blood Pressure 120/60 165/89 H 159/102 H Pulse Oximetry 96 06/17/18 00:00 06/17/18 04:00 06/17/18 08:00 Temperature 97.2 F L 97.4 F L 97.6 F Pulse Rate 85 107 H 100 H Respiratory Rate 16 16 Blood Pressure 165/85 H 151/86 H 166/98 H Pulse Oximetry 96 94 L 98 Intake & Output 06/16/18 06/17/18 06/17/18 18:59 06:59 18:59 Intake Total 560 / 560 720 / 720 Output Total 600 / 600 1200 / 1200 Balance -40 / -40 -480 / -480 Weight 102.8 kg Intake: Oral 560 / 560 Tube Feeding 720 / 720 Output: Urine 600 / 600 1200 / 1200 Other: # Bowel Movements 0 <Dav Whittington - 06/17/18 10:19> Narrative: General: Elderly male, laying in bed, appears to be no acute distress. HEENT: Head atraumatic normal cephalic, conjunctivae are non-pale, sclerae are anicteric. Right eye: Cornea and iris are completely opacified. Left eye: No pupillary reflex. Left parotid gland: Firm mass which is partially movable involving the preauricular area. Minimal erythema. Mass measuring [id number]. cervical lymph node palpable. No masses along the right side of the face or in the or the right parotid gland area. Oral exam: No masses, no ulceration, poor dentition. Dentures of upper jaw. No drainage from the duct. Uvula midline. No erythema or exudate noted. Respiratory: Good air movement bilaterally not breath sounds. Cardiovascular: Irregular rhythm, S1-S2 no obvious murmurs rubs gallops. Abdominal exam: Protuberant belly, soft and nontender nondistended palpable organ enlargement. Lower extremities: No pretibial edema no calf tenderness. [employer]ER: No musculoskeletal motor deficits. Other than blindness there are no sensory deficits noted. Muscular skeletal: Adequate muscle mass, tone and strength. <Dav Whittington - 06/17/18 13:45> Assessment and Plan - Assessment (1) Mass of parotid gland Code(s): K11.9 - Disease of salivary gland, unspecified Status: Acute (2) A-fib Code(s): I48.91 - Unspecified atrial fibrillation Status: Acute (3) Glaucoma Code(s): H40.9 - Unspecified glaucoma Status: Acute (4) Blind in both eyes Code(s): H54.3 - Unqualified visual loss, both eyes Status: Acute (5) Diabetes Code(s): E11.9 - Type 2 diabetes mellitus without complications Status: Acute (6) Hypertension Code(s): I10 - Essential (primary) hypertension Status: Acute (7) Hyperlipidemia Code(s): E78.5 - Hyperlipidemia, unspecified Status: Acute (8) Hypothyroidism Code(s): E03.9 - Hypothyroidism, unspecified Status: Acute (9) Nutrition, metabolism, and development symptoms Code(s): R63.8 - Other symptoms and signs concerning food and fluid intake Status: Acute <Martin Malone - 06/18/18 15:24> (1) Mass of parotid gland Code(s): K11.9 - Disease of salivary gland, unspecified Status: Acute Plan: Left parotid abscess based on CT findings, however has had several I&D with recurrence Head CT 05/25/18: 2.5 cm left facial abscess or necrotic mass in the anterior left parotid with surrounding edema or inflammatory change. Soft tissue neck CT 06/10/18: 2 cm thick-walled cystic mass or abscess in the left parotid gland with adjacent inflammatory change Left facial swelling appears stable, measured to be less than4.5 cm x 5 cm Blood cultures no growth after five days -ENT consulted, f/u recs; patient previously seen by Dr. Stoll Recommended ID consult for further evaluation of fluid and treatment. Was treated with vancomycin and Zosyn. Discontinued after pathology results. Pt s/p US guided full aspiration of cystic fluid by IR (06/13). f/u cystic fluid studies results: Gram stain Rare WBC no organisms seen. Culture NG for 24 hours. 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 Dr. 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 Patient and girlfriend aware and agree with this plan. 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 Advised outpatient evaluation by ENT oncology, given his significant medical comorbid conditions I would advise he be referred to an academic center such as the [facility] in [place] or the [facility]. The centers have the ability to perform complex surgical resections of ENT malignancies with microvascular reconstruction if required. (2) A-fib Code(s): I48.91 - Unspecified atrial fibrillation Status: Acute Plan: Patient has history of atrial fibrillation (on Coumadin). EKG on admission showed atrial fibrillation that was not appreciated on physical exam. Patient is currently rate controlled. Patient to can continue with home regimen of warfarin INR today 1.7 Patient given prescription to repeat INR in 1-2 days and follow-up with PCP or glass forming crew member for further management (3) Glaucoma Code(s): H40.9 - Unspecified glaucoma Status: Acute Plan: Patient history significant for glaucoma in both eyes. Patient previously had surgery but is ultimately blind in both eyes. 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 Patient blind in both eyes. -Please use precaution as patient is visually impaired (5) Diabetes Code(s): E11.9 - Type 2 diabetes mellitus without complications Status: Acute Plan: Patient known type II diabetic on metformin, Lantus, and Empagliflozin. -Hold home medications -Continue Levemir 30 units twice daily and consider increasing basal dosing. -Continue with low-dose sliding scale -Hypoglycemia protocol in place (6) Hypertension Code(s): I10 - Essential (primary) hypertension Status: Acute Plan: Continue home lisinopril, carvedilol, and furosemide Continue to monitor VS (7) Hyperlipidemia Code(s): E78.5 - Hyperlipidemia, unspecified Status: Acute Plan: Continue home rosuvastatin (8) Hypothyroidism Code(s): E03.9 - Hypothyroidism, unspecified Status: Acute Plan: Continue home levothyroxine 150 mcg po daily (9) Nutrition, metabolism, and development symptoms Code(s): R63.8 - Other symptoms and signs concerning food and fluid intake Status: Acute Plan: Fluids: Not indicated at this time Electrolytes: Replete as needed Nutrition: Diabetic diet DVT prophylaxis: Coumadin Disposition: home today with outpatient follow up (PCP and surgery referral) <Dav Whittington - 06/17/18 13:30> - Attending Attestation The exam, history, and the medical decision-making described in the above note were completed with the assistance of the resident physician. I reviewed and agree with the findings presented. Discharge plan has been discussed with patient at length. He will need to obtain referrals to a tertiary center such as [facility] or [place] for definitive treatment of his parotid mass. <Martin Malone - 06/18/18 15:24> <Dav Whittington D - Last Filed: 06/17/18 13:30> (5) Diabetes Qualifiers: Diabetes mellitus type: type 2 Diabetes mellitus ocean transportation intermediary insulin use: without ocean transportation intermediary use Diabetes mellitus complication status: without complication Qualified Code(s): E11.9 - Type 2 diabetes mellitus without complications (6) Hypertension Qualifiers: Hypertension type: essential hypertension Qualified Code(s): I10 - Essential (primary) hypertension (7) Hyperlipidemia Qualifiers: Hyperlipidemia type: unspecified Qualified Code(s): E78.5 - Hyperlipidemia, unspecified <Martin Malone L - Last Filed: 06/18/18 15:24> (5) Diabetes Qualifiers: Diabetes mellitus type: type 2 Diabetes mellitus ocean transportation intermediary insulin use: without penitentiary use Diabetes mellitus complication status: without complication Qualified Code(s): E11.9 - Type 2 diabetes mellitus without complications (6) Hypertension Qualifiers: Hypertension type: essential hypertension Qualified Code(s): I10 - Essential (primary) hypertension (7) Hyperlipidemia Qualifiers: Hyperlipidemia type: unspecified Qualified Code(s): E78.5 - Hyperlipidemia, unspecified <Dav Whittington D - Last Filed: 06/17/18 13:30> (5) Diabetes Qualifiers: Diabetes mellitus type: type 2 Diabetes mellitus ocean transportation intermediary insulin use: without ocean transportation intermediary use Diabetes mellitus complication status: without complication Qualified Code(s): E11.9 - Type 2 diabetes mellitus without complications (6) Hypertension Qualifiers: Hypertension type: essential hypertension Qualified Code(s): I10 - Essential (primary) hypertension (7) Hyperlipidemia Qualifiers: Hyperlipidemia type: unspecified Qualified Code(s): E78.5 - Hyperlipidemia, unspecified <Martin Malone - Last Filed: 06/18/18 15:24> (5) Diabetes Qualifiers: Diabetes mellitus type: type 2 Diabetes mellitus penitentiary insulin use: without penitentiary use Diabetes mellitus complication status: without complication Qualified Code(s): E11.9 - Type 2 diabetes mellitus without complications (6) Hypertension Qualifiers: Hypertension type: essential hypertension Qualified Code(s): I10 - Essential (primary) hypertension (7) Hyperlipidemia Qualifiers: Hyperlipidemia type: unspecified Qualified Code(s): E78.5 - Hyperlipidemia, unspecified
[2018-06-17] MEDS: Insulin Detemir Inj 1,000 UNIT/10 ML Vial SQ SCH (10:25)
[2018-06-17] MEDS: Insulin NovoLOG Aspart Correctional Sugar Inj SQ SCH (10:25)
[2018-06-17] MEDS: Lisinopril 20 MG Tablet PO SCH (10:26)
[2018-06-17] MEDS: Furosemide 20 MG Tablet PO SCH (10:27)
[2018-06-17] MEDS: Sodium Chloride 0.9% 2 ML Flush BID IV.FLUSH SCH (10:28)
[2018-06-17] MEDS: Carvedilol 12.5 MG Tablet PO SCH (10:28)
[2018-06-17] MEDS: prednisoLONE Acetate 1% Opth Susp 5 ML Bottle RIGHT EYE SCH (10:29)
[2018-06-17] MEDS: [UNRECOGNIZED DRUG - OTHER] LEFT EYE SCH (10:29)
== END 2018-06-17 11:12 | disposition home or self-care (01) ==
LOC: NEPE 10:28 → NEDA 14:57 → N04 19:50
PROVIDERS: ADMIT Family Medicine; ATTEND Family Medicine